=== PATIENT | male | born 1965 | race Caucasian/White ===

== ENCOUNTER 2020-09-25 17:41 | Emergency (ER) | payer OTHER, SELFPAY ==
[2020-09-25] VITALS (10 sets, daily range): BP systolic 107–134; BP diastolic 68–79; PULSE 56–66; RESP 13–18; TEMP 36.7–37.1; O2SAT 97–100
--- NOTE | ~2020-09-25 | XR_ITS ---
EXAMINATION: XR chest 1V EXAM DATE: 09/25/2020 18:23 INDICATION: Syncope. Weakness. TECHNIQUE: Portable AP frontal chest x-ray was obtained. There is no prior study for comparison. FINDINGS: The lungs are clear. There are no pleural effusions. The cardiomediastinal silhouette is within normal limits. There is no pneumothorax suspected. The bones and soft tissues are unremarkab le. IMPRESSION: No acute cardiopulmonary findings. Reviewed, dictated and finalized at location A.
--- NOTE | ~2020-09-25 | CT_ITS ---
EXAMINATION: CT brain wo con EXAM DATE: 09/25/2020 18:17 INDICATION: Dizziness. TECHNIQUE: Spiral CT of the head was performed without contrast. Axial, coronal and sagittal images were reviewed. The dose-length product (DLP) for this examination was 605.33 mGy-cm. The exposure w as tailored according to patient size, and iterative reconstruction (ASIR) was used as additional dos e reduction technique. There is no prior study for comparison. FINDINGS: There is no acute intraparenchymal hemorrhage. No evidence of intraparenchymal brain mass lesion. No evidence of acute infarction. There is no mass effect or midline shift. The ventricles are normal in size. There are no extra-axial collections. There are no acute calvarial fractures. T he orbits are unremarkable. Soft tissue is unremarkable. The visualized sinuses and mastoid air josephine ls are well aerated. IMPRESSION: 1. Normal head CT examination. Reviewed, dictated and finalized at location A.
--- NOTE | 2020-09-25 17:47 | ECG_ITS ---
Measurements Intervals [place] Rate: 62 P: 35 [place]: 195 QRS: 22 QRSD: 94 T: 34 QT: 374 QTc: 381 Interpretive Statements SINUS RHYTHM CONSIDER INFERIOR INFARCT, AGE INDETERMINATE ABNORMAL ECG Electronically Signed On 09-25-2020 18:44:09 CDT by Deondre Montoya D.O.
[2020-09-25 18:09] LABS: Basophils Absolute Auto 0.1 K/mm3 (0.0-0.1); Basophils Percent Auto 1.1 % (0.2-1.2); Eosinophils Absolute Auto 0.5 K/mm3 (0-0.3); Eosinophils Percent Auto 6.9 % (0-4.4); Hematocrit 42.1 % (42.0-52.0); Hemoglobin 14.5 g/dL (14.0-18.0); Immature Granulocyte Absolute 0.03 K/mm3 (0.00-0.031); Immature Granulocyte Percent A 0.5 % (0-0.5); Lymphocytes Percent Auto 27.8 % (18.3-44.2); Mean Corpuscular HGB Conc 34.4 g/dl (32-36); Mean Corpuscular Hemoglobin 31.2 pg (26-34); Mean Corpuscular Volume 90.5 fl (80-100); Mean Platelet Volume 10.5 fl (7.4-10.4); Monocytes Absolute Auto 0.7 K/mm3 (0.1-0.6); Monocytes Percent Auto 10.5 % (2.6-8.5); Neutrophils Absolute Auto 3.5 K/mm3 (1.3-6.7); Neutrophils Percent Auto 53.2 % (45.5-73.1); Platelet Count Result 220 k/mm3 (150-375); Red Blood Count 4.65 M/mm3 (4.6-6.20); Red Cell Distribution Width 12.3 % (11.5-14.5); White Blood Count 6.5 K/mm3 (4.5-10.0)
[2020-09-25 18:21] LABS: Alanine Aminotransferase 18 U/L (4-50); Albumin Level 4.2 g/dL (3.5-5.1); Alkaline Phosphatase 66 U/L (38-126); Anion Gap 6 mmol/L (8-16); Aspartate Amino Transferase 22 U/L (17-59); Bilirubin,Total 0.4 mg/dL (0.2-1.3); Blood Urea Nitrogen 25 mg/dL (9-20); Carbon Dioxide 30 mmol/L (22-30); Chloride 103 mmol/L (98-107); Creatine Kinase 72 U/L (55-170); Estimated CRCL calculation 74 ml/min; Estimated Glomerular Filt Rate > 60; Glucose 105 mg/dL (75-110); Potassium 3.9 mmol/L (3.4-5.0); Sodium 139 mmol/L (137-145)
--- NOTE | 2020-09-25 19:14 | ED.GENADULT ---
HPI - General Adult General Chief complaint: Weakness Stated complaint: WEAKNESS Time Seen by Provider: 09/25/20 17:49 Source: patient, EMS and RN notes reviewed Limitations: no limitations History of Present Illness HPI narrative: Patient is 55 years old white male presents with lightheadedness and dizziness at work today. 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 Patient denies any fever, chills, nausea, vomiting, diarrhea, constipation, urinary symptoms, headache, chest pain or shortness of breath. Patient was seen by different hospitals and urgent cares for chest pain over the last 2 months, started on atenolol 25 mg once a day. Patient is telling me since the beginning of that the normal until now been having intermittent dizziness, lightheadedness and not feeling well. Patient also started on meclizine 2 weeks ago for dizziness. Currently patient is asymptomatic. Patient lives with his girlfriend, denying any stress or anxiety. Patient does not smoke, or drink or uses marijuana. Patient denies any medical history. Does not take medication at home except atenolol. Patient is scheduled to see a family physician for the first time tomorrow. Related Data Home Medications Medication Instructions Recorded Confirmed atenolol 25 mg PO DAILY 09/25/20 ibuprofen 800 mg PO Q6H PRN 09/25/20 meclizine 25 mg PO TID PRN 09/25/20 Allergies Allergy/AdvReac Type Severity Reaction Status Date / Time No Known Allergies Allergy Verified 09/25/20 17:50 Review of Systems Review of Systems: Narrative: CONSTITUTIONAL: Denies fever, chills, or sweats. EYES: Denies visual changes, redness, or discharge. ENT: Denies rhinorrhea, congestion, sore throat, or otalgia. CARDIOVASCULAR: Denies chest pain, palpitations, or edema. RESPIRATORY: Denies cough or dyspnea. GASTROINTESTINAL: Denies abdominal pain, nausea, vomiting, or diarrhea. GENITOURINARY: Denies dysuria or hematuria. SKIN: Denies rash or itching. MUSCULOSKELETAL: Denies back pain, joint pain, or myalgia. NEUROLOGIC: Denies headache, numbness, or weakness. PSYCHIATRIC: Denies anxiety or depression. Exam Narrative: Exam Narrative: General appearance: Well-developed, well-nourished Skin: Normal color Head: Normocephalic, nontraumatic Eyes: Clear conjunctiva ENT: Oropharynx normal, ears normal, nose normal Neck: Supple, nontender Chest and respiratory: Airway patent, no respiratory distress, no accessory muscle use Heart: Regular rate/rhythm Abdomen: Soft, nontender, no organomegaly, quiet bowel sounds Vascular: Normal peripheral pulses, normal capillary refill. Musculoskeletal: Normal range of motion, nontender back Neurologic: Alert and oriented ?3, [employer] is normal as tested, no gross motor deficit Course Course Emergency Course: Resolved Vital Signs Vital signs: Vital Signs Temperature 36.7 C 09/25/20 17:40 Pulse Rate 60 09/25/20 17:40 Respiratory Rate 14 09/25/20 17:40 Blood Pressure 134/70 09/25/20 17:40 Pulse Oximetry 98 09/25/20 17:40 Temperature 37.1 C 09/25/20 19:51 Pulse Rate 65 09/25/20 19:51 Respiratory Rate 16 09/25/20 19:51 Blood Pressure 107/79 09/25/20 19:51 Pulse Oximetry 100 09/25/20 19:51 Medical Decision Making Vital Signs Vital Signs: Vital Signs Temperature 36.7 C 09/25/20 17:40 Pulse Rate 60 09/25/20 17:40 Respiratory Rate 14 09/25/20 17:40 Blood Pressure 134/70 09/25/20 17:40 Pulse Oximetry 98 09/25/20 17:40 Temperature 37.1 C 03
--- NOTE | 2020-09-25 19:47 | PC.NURSE ---
Pt presents to ED with complaints of generalized weakness. Pt states he blacked out at work today. Denies fall and loc. Pt denies sick contacts, NVD, fever, chills, chest pain, sob and emesis. Pt noted to be alert and oriented x4 and states it is difficulty to explain how he feels. Pt provided ice water per ok from EDMD to provide urine specimen. Pt resting on cart on his phone. Advised to press call button for assistance.
--- NOTE | 2020-09-25 19:53 | PC.NURSE ---
Pt denies all pain and discomfort at this time.
[2020-09-25 21:02] LABS: Add Urine Microscopic? NO; Appearance Urine Clear (Clear); Bilirubin Urine Negative (Negative); Blood Urine Negative (Negative); Color Urine Yellow (Yellow); Glucose Urine UA Negative (Negative); Ketones Urine Negative (Negative); Leukocyte Esterase Ur Negative LEU/UL (Negative); Nitrate Urine Negative (Negative); Protein Urine Negative (Negative); Specific Grav Ur 1.015 (1.001-1.035); Urobilinogen Urine Negative mg/dL (<2.0)
[2020-09-25 21:19] LABS: Amphetamine Screen Urine Negative (Negative); Barbiturate Screen Urine Negative (Negative); Benzodiazepines Screen Urine Negative (Negative); Cannabinoid Screen Urine Negative (Negative); Cocaine Screen Urine Negative (Negative); Methadone Screen Urine Negative (Negative); Opiate Screen Urine Negative (Negative); Phencyclidine Screen Urine Negative (Negative)
--- NOTE | 2020-09-25 21:21 | PC.NURSE ---
Pt provided Dr's note. All questions and concerns addressed. Pt advised to follow up with pcp and to continue all home meds and pt voices his understanding.
== END 2020-09-25 21:40 | disposition home or self-care (01) ==
PROVIDERS: Emergency Provider Emergency Medicine; PCP Family Medicine
DX: R42 Dizziness and giddiness (principal); R53.1 Weakness
CPT/HCPCS: 36415; 70450; 71045; 80053; 80307; 81003; 82550; 84443; 85025; 93005; 99284

== ENCOUNTER 2020-10-17 19:13 | Emergency (ER) | payer OTHER, SELFPAY ==
[2020-10-17] VITALS (7 sets, daily range): BP systolic 115–124; BP diastolic 75–87; PULSE 66–82; RESP 12–18; TEMP 36.7; O2SAT 91–96
--- NOTE | 2020-10-17 19:21 | ECG_ITS ---
Measurements Intervals [place] Rate: 75 P: 34 [place]: 183 QRS: 31 QRSD: 88 T: 31 QT: 364 QTc: 406 Interpretive Statements SINUS RHYTHM INFERIOR INFARCT, AGE INDETERMINATE ABNORMAL ECG Electronically Signed On 10-18-2020 0:13:51 CDT by Deondre Montoya D.O.
[2020-10-17 19:40] LABS: Basophils Absolute Auto 0.1 K/mm3 (0.0-0.1); Basophils Percent Auto 0.7 % (0.2-1.2); Eosinophils Absolute Auto 0.4 K/mm3 (0-0.3); Eosinophils Percent Auto 5.2 % (0-4.4); Hematocrit 42.3 % (42.0-52.0); Hemoglobin 14.8 g/dL (14.0-18.0); Immature Granulocyte Absolute 0.03 K/mm3 (0.00-0.031); Immature Granulocyte Percent A 0.4 % (0-0.5); Lymphocytes Absolute Auto 1.67 K/mm3 (0.9-3.2); Mean Corpuscular Hemoglobin 31.4 pg (26-34); Mean Corpuscular Volume 89.6 fl (80-100); Mean Platelet Volume 10.3 fl (7.4-10.4); Monocytes Absolute Auto 0.7 K/mm3 (0.1-0.6); Monocytes Percent Auto 9.6 % (2.6-8.5); Neutrophils Absolute Auto 4.2 K/mm3 (1.3-6.7); Neutrophils Percent Auto 60.1 % (45.5-73.1); Platelet Count Result 238 k/mm3 (150-375); Red Blood Count 4.72 M/mm3 (4.6-6.20); Red Cell Distribution Width 12.3 % (11.5-14.5)
[2020-10-17 19:51] LABS: Anion Gap 5 mmol/L (8-16); Blood Urea Nitrogen 28 mg/dL (9-20); Carbon Dioxide 29 mmol/L (22-30); Chloride 108 mmol/L (98-107); Estimated CRCL calculation 74 ml/min; Estimated Glomerular Filt Rate > 60; Glucose 91 mg/dL (75-110); Potassium 4.1 mmol/L (3.4-5.0); Sodium 142 mmol/L (137-145)
[2020-10-17] MEDS: SODIUM CHLORIDE 0.9% IV 1,000 ML 999 ML IV CONT (20:35)
--- NOTE | 2020-10-17 21:34 | ED.GENADULT ---
HPI - General Adult General Chief complaint: Syncope Stated complaint: near syncopal Time Seen by Provider: 10/17/20 19:42 History of Present Illness HPI narrative: Patient is a 55-year-old gentleman who presents to the emergency department planing of near syncope. The patient reports he was at work started feeling lightheaded, slumped over briefly lost consciousness. Patient states he was had some mild twitching of his extremities whenever he passed out and then returned to normal status. Patient denies headache denies chest pain denies shortness of breath denies abdominal pain. Patient reports that his primary care physician had adjusted his blood pressure medicines recently after he had another episode similar to this. Related Data Home Medications Medication Instructions Recorded Confirmed atenolol 25 mg PO DAILY 09/25/20 ibuprofen 800 mg PO Q6H PRN 09/25/20 meclizine 25 mg PO TID PRN 09/25/20 Allergies Allergy/AdvReac Type Severity Reaction Status Date / Time No Known Allergies Allergy Verified 09/25/20 17:50 Review of Systems Review of Systems: Narrative: A 10 system review of systems was completed on the patient and is negative except for what is stated in the HPI. Nursing and ancillary documentation was reviewed. PMFSH Comments Patient has past medical history significant for hypertension. Social history the patient works for [employer] and denies illicit drug use Exam Narrative: Exam Narrative: GENERAL: Well-appearing, well-nourished, and in no acute distress. HEAD: Normocephalic, atraumatic. EYES: PERRLA and EOMI. ENT: Nares clear, no rhinorrhea or epistaxis. Mucous membranes moist. NECK: Supple. CHEST: Clear to auscultation. No respiratory distress. HEART: Regular rate and rhythm. No murmur heard. Normal peripheral pulses. ABDOMEN: Soft, nontender, nondistended, normal active bowel sounds. EXTREMITIES: Normal range of motion. No edema. SKIN: Warm, dry, no rash. NEURO: No focal deficits. Alert and oriented x3. PSYCH: Normal mood and affect. Course Vital Signs Vital signs: Vital Signs Temperature 36.7 C 10/17/20 19:14 Pulse Rate 75 10/17/20 19:14 Respiratory Rate 16 10/17/20 19:14 Blood Pressure 124/78 10/17/20 19:14 Pulse Oximetry 91 10/17/20 19:14 Temperature 36.7 C 04/15/21 19:14 Pulse Rate 75 10/17/20 19:14 Respiratory Rate 16 10/17/20 19:14 Blood Pressure 124/78 10/17/20 19:14 Pulse Oximetry 91 10/17/20 19:14 Medical Decision Making Vital Signs Vital Signs: Vital Signs Temperature 36.7 C 10/17/20 19:14 Pulse Rate 75 10/17/20 19:14 Respiratory Rate 16 10/17/20 19:14 Blood Pressure 124/78 10/17/20 19:14 Pulse Oximetry 91 10/17/20 19:14 Temperature 36.7 C 10/17/20 19:14 Pulse Rate 75 10/17/20 19:14 Respiratory Rate 16 10/17/20 19:14 Blood Pressure 124/78 10/17/20 19:14 Pulse Oximetry 91 10/17/20 19:14 Lab Data Result diagrams: 10/17/20 19:34 10/17/20 19:34 Labs: Lab Results 10/17/20 10/17/20 Range/Units 19:34 19:34 WBC 7.0 (4.5-10.0) K/mm3 RBC 4.72 (4.6-6.20) M/mm3 Hgb 14.8 (14.0-18.0) g/dL Hct 42.3 (42.0-52.0) % MCV 89.6 (80-100) fl MCH 31.4 (26-34) pg MCHC 35.0 (32-36) g/dl RDW 12.3 (11.5-14.5) % Plt Count 238 (150-375) k/mm3 MPV 10.3 (7.4-10.4) fl Immature Gran % (Auto) 0.4 (0-0.5) % Neut % (Auto) 60.1 (45.5-73.1) % Lymph % (Auto) 24.0 (18.3-44.2) % [place] % (Auto) 9.6 H (2.6-8.5) % Eos % (Auto) 5.2 H (0-4.4) % Baso % (Auto) 0.7 (0.2-1.2) % Lymph # (Auto) 1.67 (0.9-3.2) K/mm3 [place] # (Auto) 0.7 H (0.1-0.6) K/mm3 Eos # (Auto) 0.4 H (0-0.3) K/mm3 Baso # (Auto) 0.1 (0.0-0.1) K/mm3 Abs Immat Gran (auto) 0.03 (0.00-0.031) K/mm3 Absolute Neuts (auto) 4.2 (1.3-6.7) K/mm3 Absolute Nucleated RBC 0.0 (0.0-0.012) K/mm3 Nucleated RBC % 0.0 (0.0-0.2) % Sodium 142 (137-
== END 2020-10-17 21:45 | disposition home or self-care (01) ==
PROVIDERS: Emergency Medicine; Emergency Provider Emergency Medicine; PCP Family Medicine
DX: R55 Syncope and collapse (principal); I10 Essential (primary) hypertension; R94.31 Abnormal electrocardiogram [ECG] [EKG]
CPT/HCPCS: 36415; 80048; 85025; 93005; 96360; 99284; J7030

== ENCOUNTER 2020-12-25 16:57 | Inpatient (IN) | payer OTHER, SELFPAY ==
[2020-12-25] VITALS (7 sets, daily range): BP systolic 115–135; BP diastolic 63–81; PULSE 58–72; RESP 15–18; TEMP 36.5–37.1; O2SAT 95–99; BMI 25.0
--- NOTE | ~2020-12-25 | CT_ITS ---
EXAMINATION: CT brain wo con DATE: 12/25/2020 18:19 INDICATION: Syncope. TECHNIQUE: Computed tomography (CT) of the head was performed without intravenous contrast. The mA wa s adjusted according to patient size. Iterative reconstruction technique was employed. The dose-lengt h product was 605.33 mGy-cm. COMPARISON: Head CT 09/25/2020 FINDINGS: There is no intracranial hemorrhage, acute infarction, or abnormal intracranial mass lesion . The ventricles are normal in size. The orbits are normal. There is mucosal thickening in right sphe noid sinus with thickening and sclerosis of the sinus tam, consistent with chronic sinusitis. The m astoid air cells are normal. IMPRESSION: 1. Normal brain. 2. Chronic sinusitis. Reviewed, dictated and finalized at location A.
--- NOTE | ~2020-12-25 | XR_ITS ---
EXAMINATION: XR chest 1V portable DATE: 12/27/2020 07:12 INDICATION: Apnea TECHNIQUE: frontal view of the chest was obtained. COMPARISON: Chest radiograph dated 09/25/2020 FINDINGS: The lungs remain clear with no focal airspace opacities, pulmonary edema, pleural effusion or pneumot horax. The cardiomediastinal silhouette is normal. IMPRESSION: 1. No acute cardiopulmonary disease. Reviewed, dictated and finalized at location A.
--- NOTE | ~2020-12-25 | US_ITS ---
EXAMINATION: US carotid duplex BI DATE: 12/26/2020 10:55 INDICATION: Syncope TECHNIQUE: Grayscale, color Doppler, and pulsed Doppler images of the cervical carotid arteries were obtained. The degree of vessel stenosis is placed in one of the following categories: normal, <50%, 5 0-69%, >=70% but less than near-occlusion, near-occlusion, or total occlusion. Note that percent sten osis relative to normal distal artery lumen diameter is indirectly measured from velocity measurement s as described by Cameron, et al. Radiology 2003; 229:340-346. COMPARISON: None. FINDINGS: RIGHT: The right common carotid artery (CCA) peak systolic velocity (PSV) is 71 cm/s. The right internal car otid artery (ICA) PSV is 49 cm/s. The right ICA end-diastolic velocity (EDV) is 18 cm/s. The right IC A/CCA PSV ratio is 1.1. Grayscale and color Doppler images yield an estimate of <50% diameter reducti on from plaque in the ICA. The external carotid artery (ECA) PSV is 142 cm/s. There is antegrade flow in the right vertebral artery. LEFT: The left CCA PSV is 106 cm/s. The left ICA PSV is 97 cm/s. The left ICA EDV is 19 cm/s. The left ICA/ CCA PSV ratio is 0.9. Grayscale and color Doppler images yield an estimate of <50% diameter reduction from plaque in the ICA. The ECA PSV is 85 cm/s. There is antegrade flow in the left vertebral artery . IMPRESSION: 1. <50% stenosis from minimal plaque in the right internal carotid artery. 2. <50% stenosis from minimal plaque in the left internal carotid artery. Reviewed, dictated and finalized at location A.
--- NOTE | ~2020-12-25 | MR_ITS ---
EXAMINATION: MR brain/brain stem wo con DATE: 12/26/2020 14:42 CDT INDICATION: Syncope TECHNIQUE: Magnetic resonance imaging (MRI) of the brain and brainstem was performed without intraven ous contrast. Sequences included sagittal and axial T1-weighted SE, axial diffusion-weighted FS SE, a xial T2*-weighted GRE, axial T2-weighted FLAIR Propeller, and axial T2-weighted Propeller. Apparent d iffusion coefficient (ADC) maps were created. COMPARISON: CT dated 12/25/2020 FINDINGS: The brain volume and ventricular system are within normal limits. The brain parenchymal si gnal intensity pattern and moore/white matter is normal and there is no evidence of hemorrhage, space occupying masses or infarctions. The flow signal voids of the major arterial structures about the [place] and within the francesca r dural venous sinuses appear grossly unremarkable and patent. The seventh and eighth cranial nerve complexes are normal. The mid sagittal image demonstrates a normal craniovertebral junction and nino us callosum. There is mucosal thickening of the right maxillary sinus. Orbits are symmetric without d isconjugate gaze. IMPRESSION: 1: No acute intracranial abnormality. 2: Right maxillary sinusitis. Reviewed, dictated and finalized at location B.
--- NOTE | 2020-12-25 16:58 | ECG_ITS ---
Measurements Intervals [place] Rate: 66 P: 53 [place]: 175 QRS: 54 QRSD: 96 T: 49 QT: 384 QTc: 404 Interpretive Statements SINUS RHYTHM NORMAL ECG Electronically Signed On 12-25-2020 21:38:37 CDT by Deondre Montoya D.O.
[2020-12-25 17:12] LABS: Basophils Percent Auto 0.7 % (0.2-1.2); Eosinophils Absolute Auto 0.1 K/mm3 (0-0.3); Eosinophils Percent Auto 1.5 % (0-4.4); Hematocrit 42.9 % (42.0-52.0); Hemoglobin 14.5 g/dL (14.0-18.0); Immature Granulocyte Absolute 0.02 K/mm3 (0.00-0.031); Immature Granulocyte Percent A 0.4 % (0-0.5); Lymphocytes Absolute Auto 1.12 K/mm3 (0.9-3.2); Lymphocytes Percent Auto 20.4 % (18.3-44.2); Mean Corpuscular HGB Conc 33.8 g/dl (32-36); Mean Corpuscular Hemoglobin 30.5 pg (26-34); Mean Corpuscular Volume 90.1 fl (80-100); Mean Platelet Volume 10.6 fl (7.4-10.4); Monocytes Absolute Auto 0.4 K/mm3 (0.1-0.6); Monocytes Percent Auto 7.5 % (2.6-8.5); Neutrophils Absolute Auto 3.8 K/mm3 (1.3-6.7); Neutrophils Percent Auto 69.5 % (45.5-73.1); Platelet Count Result 215 k/mm3 (150-375); Red Blood Count 4.76 M/mm3 (4.6-6.20); Red Cell Distribution Width 11.9 % (11.5-14.5); White Blood Count 5.5 K/mm3 (4.5-10.0)
[2020-12-25 17:21] LABS: Anion Gap 10 mmol/L (8-16); Blood Urea Nitrogen 25 mg/dL (9-20); Calcium 9.7 mg/dL (8.4-10.2); Carbon Dioxide 27 mmol/L (22-30); Chloride 107 mmol/L (98-107); Estimated CRCL calculation 74 ml/min; Estimated Glomerular Filt Rate > 60; Glucose 111 mg/dL (75-110); Potassium 3.9 mmol/L (3.4-5.0); Sodium 144 mmol/L (137-145)
[2020-12-25 18:39] LABS: Ethanol < 10 mg/dL (<10)
--- NOTE | 2020-12-25 18:43 | ED.SYNCOPE ---
HPI - Syncope General Chief Complaint: Syncope Stated Complaint: seizures Time Seen by Provider: 12/25/20 17:52 Source: patient Mode of arrival: EMS Limitations: no limitations History of Present Illness HPI narrative: 55-year-old with a history of hypertension, hyperlipidemia, anxiety here with complaints of multiple syncopal episodes for past few days. Patient states that he was trying to clock and passed out at the clock. He denies any chest pain or palpitation prior to the evening. Patient states that this is her third or fourth time since last 3 days. He complains of headache after the fall. However his coworkers noticed him to having some twitching. Patient denies previous history of seizure disorder. He is not on any medication. He states that he takes atorvastatin, meclizine and fluoxetine. MD complaint: almost passed out Onset (ago): hour(s) (1) -: minutes(s) Prodromal symptoms: none Injuries sustained associated with event: none Treatments prior to arrival: none Related Data Home Medications Medication Instructions Recorded Confirmed atenolol 25 mg PO DAILY 09/25/20 ibuprofen 800 mg PO Q6H PRN 09/25/20 meclizine 25 mg PO TID PRN 09/25/20 fluoxetine mg 12/25/20 12/25/20 Allergies Allergy/AdvReac Type Severity Reaction Status Date / Time No Known Allergies Allergy Verified 12/25/20 17:41 Review of Systems Review of Systems: All systems reviewed & are unremarkable except as noted in HPI and below Constitutional: Constitutional: Reports no additional constitutional complaints Eyes: Eyes: Reports no additional eye complaints ENT: Reports system reviewed and no additional complaints, except as documented Cardiovascular: Cardiovascular: Reports no additional cardiovascular complaints Respiratory: Respiratory: Reports no additional respiratory complaints Gastrointestinal: Gastrointestinal: Reports no additional gastrointestinal complaints Musculoskeletal: Musculoskeletal: Reports no additional musculoskeletal complaints Integumentary/Breasts: Skin/Breast: Reports system reviewed and no additional complaints, except as docu Neurologic: Reports system reviewed and no additional complaints, except as documented and Reports syncope Exam Narrative: Exam Narrative: GENERAL: Well-appearing, well-nourished, and in no acute distress. HEAD: Normocephalic, atraumatic. EYES: PERRLA and EOMI. ENT: Nares clear, no rhinorrhea or epistaxis. Mucous membranes moist. NECK: Supple. CHEST: Clear to auscultation. No respiratory distress. HEART: Regular rate and rhythm. No murmur heard. Normal peripheral pulses. ABDOMEN: Soft, nontender, nondistended, normal active bowel sounds. EXTREMITIES: Normal range of motion. No edema. SKIN: Warm, dry, no rash. NEURO: No focal deficits. Alert and oriented x3. PSYCH: Normal mood and affect. Course Course Emergency Course: Patient presently complaining of headache otherwise he is neurologically intact. I discussed labs, EKG and CT findings with the patient. We will admit him to the hospital for observation for multiple syncopal episodes for the past 3 days. Patient is agreeable. Vital Signs Vital signs: Vital Signs Temperature 37.1 C 12/25/20 16:58 Pulse Rate 62 12/25/20 16:58 Respiratory Rate 18 12/25/20 16:58 Blood Pressure 117/70 12/25/20 16:58 Pulse Oximetry 96 12/25/20 16:58 Temperature 36.6 C 12/25/20 17:36 Pulse Rate 70 12/25/20 17:36 Respiratory Rate 15 12/25/20 17:36 Blood Pressure 132/80 12/25/20 17:36 Pulse Oximetry 97 12/25/20 17:36 MDM - Syncope Differential Diagnosis Differential diagnosis: Likely syncope due to orthostatic hypotension, vasovagal syncope and pulmonary embolism Medical Records Attestation: I reviewed the patient's medical records. Lab Data Result diagrams: 12/25/20 17:07 12/25/20 17:07 Labs: Lab Results 12/25/20 12/25/20 12/25/20 Range/Units 17:07 17:07 17:
[2020-12-25 18:49] LABS: Troponin I < 0.012 ng/mL (0.000-0.034)
--- NOTE | 2020-12-25 21:30 | ADMGEN ---
This patient, Venu Garcia, was admitted to Medical Room 251-. Patient/family oriented to hospital policies and general routines including ID bracelet, bed and alarms, visiting hours, pain management, procedures, bathroom and other care routines, personal items, smoking policy, room service/diet, and visiting hours. Information on how to activate the Rapid Response Team has been discussed. Patient/Family are encouraged to report perceived risks to care and to ask questions if they do not understand what they are told or what they should do.
--- NOTE | 2020-12-25 22:08 | PM.IMHP ---
H&P: HPI History of Present Illness Date/Time: 12/25/20 22:08 Chief Complaint: Syncope Narrative: This is a 55-year-old male with past medical history significant for dyslipidemia, depression. 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 he has been having syncopal episodes for the last few months started back in July he follow-up in the outpatient setting for Holter monitoring. He denies any dizziness any lightheadedness no prodromes no post ictal state patient could be standing or sitting or laying in bed no relaxation of the sphincters no muscle twitching or tonic clonic movement no tremors no migraine headaches no vision changes no nausea no vomiting no diarrhea no abdominal pain no palpitations no chest pain no PND no orthopnea no claudication he has been eating and drinking his usual he denies use of any drugs or alcohol. Preliminary workup has been essentially nonrevealing patient will be placed in observation status. Review of Systems Review of Systems: Narrative: Syncope and collapse Constitutional: Constitutional: Denies chills, Denies fever(s), Denies lethargy, Denies malaise and Denies weakness Eyes: Eyes: Denies change in vision ENT: Denies dysphagia, Denies vertigo, Denies dizziness, Denies nasal congestion, Denies nasal discharge, Denies nasal obstruction, Denies disequilibrium and Denies tinnitus Cardiovascular: Cardiovascular: Denies irregular heart rhythm, Denies radiating jaw, neck or arm pain and Denies palpitations Respiratory: Respiratory: Denies cough, Denies dyspnea, Denies dyspnea on exertion, Reports snoring and Denies wheezing Gastrointestinal: Gastrointestinal: Denies abdominal pain, Denies diarrhea, Denies nausea and Denies vomiting Musculoskeletal: Musculoskeletal: Denies back pain, Denies arthralgias, Denies joint swelling, Denies muscle cramps and Denies muscle weakness Integumentary/Breasts: Skin/Breast: Denies rash Neurologic: Denies vertigo, Denies dizziness, Reports syncope, Denies focal weakness, Denies loss of vision, Denies Sensory deficit (Neuro), Denies tremor(s) and Denies weakness Psychiatric: Psychiatric: Reports no additional psychiatric complaints Endocrine: Endocrine: Reports no additional endocrine complaints Hematologic/Lymphatic: Hematologic/Lymphatic: Reports no additional hematologic/lymphatic complaints Allergic/Immunologic: Allergic/Immunologic: Reports no additional allergic/immunologic complaints [facility] Family History Family History (Updated 12/25/20 @ 21:14 by Moni Funes RN) Father Heart disease Social History Social History Alcohol intake: never Spiritual care concerns: No Meds Home Medications and Allergies Home Medications Medication Instructions Recorded Confirmed Type ibuprofen 600 mg PO Q6H PRN 09/25/20 12/25/20 History meclizine 25 mg PO TID PRN 09/25/20 12/25/20 History atorvastatin 40 mg PO DAILY 12/25/20 12/25/20 History fluoxetine 20 mg PO DAILY 12/25/20 12/25/20 History Allergies Allergy/AdvReac Type Severity Reaction Status Date / Time atenolol AdvReac Hypotension Verified 12/25/20 21:12 Vital Signs Vital Signs - 24 hr 12/25/20 16:58 12/25/20 17:36 12/25/20 18:30 Temperature 98.7 F 97.8 F Pulse Rate 62 70 63 Respiratory Rate 18 15 15 Blood Pressure 117/70 132/80 115/63 Pulse Oximetry 96 97 98 12/25/20 19:23 12/25/20 20:19 12/25/20 21:12 Temperature 97.7 F Pulse Rate 64 64 58 L Respiratory Rate 16 16 18 Blood Pressure 117/74 119/77 135/81 Pulse Oximetry 98 98 99 Exam Narrative: Exam Narrative: Laying in re Const: General: cooperative, comfortable, no acute distress, well developed, alert, awake, well groomed and other (Well-appearing) Nutritional Anjum
[2020-12-26] VITALS (13 sets, daily range): BP systolic 108–127; BP diastolic 59–83; PULSE 47–72; RESP 18–21; TEMP 36.2–36.6; O2SAT 95–99; BMI 25.0
--- NOTE | 2020-12-26 | ECHO_ITS ---
Patient Info Name: Venu Garcia Age: 55 years : 1965 Gender: Male Ht: 66 in Wt: 154 lbs BSA: 1.81 m2 HR: 72 bpm BP: 108 / 60 mmHg Heart Rhythm: Sinus Rhythm Technical Quality: Good Exam Date: 12/26/2020 11:06 AM Exam Location: [facility] Patient Status: Outpatient Admit Date: 12/25/2020 Staff Ordering Physician: Primo Rick MD Medical Library Assistant: Rubin Aleman, KALPESH, RT Attending Provider: Diana Ching MD Referring Physician: Merline KING; Exam Type: CA echo doppler color flow Study Info Indications R55 - Syncope and collapse Complete two-dimensional, color flow and Doppler transthoracic echocardiogram is performed. Strain analysis performed. Summary 1. Complete two-dimensional, color flow and Doppler transthoracic echocardiogram is performed. 2. Strain analysis performed. 3. Left ventricular chamber dimension is normal. 4. Left ventricular systolic function is normal, estimated at 55-60%. 5. There is mildly increased left ventricular wall thickness. 6. The left ventricular diastolic function is normal. 7. Global longitudinal strain is normal at -18 %. 8. There is mild mitral valve regurgitation. Left Ventricle Left ventricular chamber dimension is normal. Left ventricular systolic function is normal, estimated at 55-60%. There is mildly increased left ventricular wall thickness. The left ventricular diastolic function is normal. Global longitudinal strain is normal at -18 %. Right Ventricle Right ventricular chamber dimension is normal. Right ventricular systolic function is normal. Left Atria Left atrial chamber dimension is normal. Right Atria Right atrial chamber dimension is normal. Atrial Septum Intact interatrial septum visualized by color flow imaging. Aortic Valve The aortic valve is trileaflet. There is mild aortic valve sclerosis. There is no aortic valve stenosis. There is trace aortic valve regurgitation. Pulmonic Valve The pulmonic valve is normal. There is no pulmonic valve stenosis. There is trace pulmonic regurgitation. Mitral Valve The mitral valve has normal leaflets. There is no mitral valve stenosis. There is mild mitral valve regurgitation. Tricuspid Valve The tricuspid valve leaflets are normal. There is no significant tricuspid valve stenosis. There is trace tricuspid valve regurgitation. Pericardium/Pleural The pericardium appears normal. There is no pericardial effusion. Inferior Vena Cava Normal inferior vena cava with >50% collapse upon inspiration consistent with normal right atrial pressure, 5 mmHg. Aorta The aortic root size at the sinus of Valsalva is normal. The prox ascending aorta size is normal. Left Ventricular Outflow Tract Name Value Normal LVOT 2D LVOT Diameter 1.9 cm LVOT Doppler LVOT Peak Gradient 3 mmHg LVOT Mean Gradient 1 mmHg LVOT VTI 17 cm LVOT VTI/AV VTI Ratio 0.8 LVOT Stroke Volume 46 ml LVOT CO
--- NOTE | 2020-12-26 06:00 | ECG_ITS ---
Measurements Intervals Dorena Rate: 58 P: 57 NJ: 188 QRS: 30 QRSD: 88 T: 65 QT: 395 QTc: 390 Interpretive Statements SINUS BRADYCARDIA MINIMAL Q WAVES- INFERIOR LEADS BORDERLINE ECG Electronically Signed On 12-26-2020 10:54:31 CDT by Deondre Montoya D.O.
[2020-12-26] MEDS: FLUoxetine HCL 20 MG CAPSULE PO (09:22)
[2020-12-26] MEDS: ASPIRIN 81 MG CHEWABLE TABLET PO (09:22)
[2020-12-26] MEDS: ATORVASTATIN 40 MG TABLET PO (09:22)
--- NOTE | 2020-12-26 15:15 | PM.IMPN ---
Progress Note: A&P Assessment and Plan (1) Syncope: Qualifiers: Syncope type: unspecified Qualified Code(s): R55 - Syncope and collapse Code(s): R55 - Syncope and collapse Status: Acute Assessment and Plan: Suspect narcolepsy Apnea link screening test tonight MRI of the brain shows normal brain Echocardiogram: ef 55-60% Carotid Doppler: <50% Bilaterally Patient states that he was on Holter monitor in the outpatient setting Other etiologies not completely ruled out Consult neurology thank you PT/OT (2) Dizziness: Code(s): R42 - Dizziness and giddiness Status: Acute Assessment and Plan: Patient stated that he does get dizzy when adjusting positions Meclizine 25mg TID PO scheduled here PRN at home PT/OT evkhanh (3) Dyslipidemia: Code(s): E78.5 - Hyperlipidemia, unspecified Status: Acute Assessment and Plan: Continue atorvastatin 40mg PO daily (4) Depression: Code(s): F32.9 - Major depressive disorder, single episode, unspecified Status: Acute Assessment and Plan: Continue fluoxetine 20mg PO daily Subjective Date/time seen: 12/26/20 14:50 Interval history: This is a 55-year-old male with past medical history significant for dyslipidemia, depression. 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 patient did state that he has been having these episodes for while. And sometimes he does loses hearing and at times he does not. I asked him if he blacked out he has had no however when I asked him if he remembers what happens he stated that he is not sure. He also stated that he does not know what happened to him yesterday. He did say that he was still having some issues with dizziness when he gets up. I asked him if he was still taking his meclizine he said he would think that the nurse have given it to him. I did explain to the patient that this is a p.r.n. medication that he needs to ask for it. However I have changed over to scheduled to ensure that he is getting at. Patient at this time denies chest pain, shortness of breath, constipation, nausea, vomiting, diarrhea, palpitations, sweats, chills, visual difficulties, urinary dysfunction, or seizures. In the evening time, patient was found in the bathroom staring off with no response. Patient was also found to have several brief periods of apnea. Patient was transferred to the IMU for bipap and respiratory management. Review of Systems Review of Systems: All systems reviewed & are unremarkable except as noted in HPI and below Exam Const: General: cooperative, comfortable, no acute distress, well developed, alert, awake, well groomed and other (Well-appearing) Nutritional Appearance: average body habitus Orientation/consciousness: patient oriented x3 HENMT: Head: normal to inspection, normocephalic and atraumatic Ears: hearing grossly normal bilaterally General nose exam: Normal external nose present Face and sinus: normal facial exam Eyes: General: appearance normal, both eyes and all related structures Alignment and Position: alignment normal Sclera: sclerae normal Pupils: Equal, round and reactive pupils present EOM: EOMs intact bilaterally Neck: Neck: full ROM, no lymphadenopathy and no JVD Thyroid: thyroid normal Lymphatic: no lymphadenopathy noted Resp: Effort & Inspection: normal respiratory effort and able to speak in complete sentences Auscultation: clear to auscultation bilaterally, no crackles, no rales and no rhonchi Cardio: Jugular venous distension: no JVD Rate: regular rate Rhythm: regular rhythm Heart sounds: S1 normal heart sound present and S2 normal heart sound present GI: Inspection: normal to inspection : General: Yes d
[2020-12-26] MEDS: MECLIZINE HCL 25 MG TABLET PO (16:34)
[2020-12-26] MEDS: ACETAMINOPHEN 325 MG TABLET 650 MG PO (18:58)
--- NOTE | 2020-12-26 19:00 | PC.NURSE ---
At 1745 Patient was on the toilet, NAVAL MARINE ENGINEER found the patient to be staring out and would not answer questions and patient began shaking mainly his left side of his body, NAVAL MARINE ENGINEER called for help and the patient was assisted back into the bed. When returned to bed patient started talking again, patient was able to answer questions. Vitals were stable. I went to the nurses station to notify the MD covering the patient as I was talking to Dr. Ching I was notified that the patient was staring out again and shaking. MD went to the patients room, orders were obtained and entered into the computer. Patient was then noted to have multiple 20 second apneic episodes, heart rate and pulse oximetry were still stable, patient was able to be woken up by shaking and would talk. Respiratory was called and patient was placed on a CPAP. MD ordered for patient to be transferred to IMU.
--- NOTE | 2020-12-26 19:29 | PC.NURSE ---
This patient, Venu Garcia, was received from [ [address] [place] [address]] on 12/26/20 at 1915. Patient/family oriented to unit policies and routines
[2020-12-26 20:40] LABS: Glucose Point of Care 132 mg/dl (65-105)
[2020-12-27] VITALS (19 sets, daily range): BP systolic 103–132; BP diastolic 6–80; PULSE 53–76; RESP 12–20; TEMP 36.3–36.7; O2SAT 97–98
[2020-12-27 05:26] LABS: Basophils Absolute Auto 0.1 K/mm3 (0.0-0.1); Basophils Percent Auto 0.8 % (0.2-1.2); Eosinophils Absolute Auto 0.3 K/mm3 (0-0.3); Eosinophils Percent Auto 5.3 % (0-4.4); Hematocrit 40.8 % (42.0-52.0); Hemoglobin 13.8 g/dL (14.0-18.0); Immature Granulocyte Absolute 0.02 K/mm3 (0.00-0.031); Immature Granulocyte Percent A 0.3 % (0-0.5); Lymphocytes Absolute Auto 2.54 K/mm3 (0.9-3.2); Lymphocytes Percent Auto 39.3 % (18.3-44.2); Mean Corpuscular HGB Conc 33.8 g/dl (32-36); Mean Corpuscular Hemoglobin 30.4 pg (26-34); Mean Corpuscular Volume 89.9 fl (80-100); Monocytes Absolute Auto 0.7 K/mm3 (0.1-0.6); Neutrophils Absolute Auto 2.9 K/mm3 (1.3-6.7); Neutrophils Percent Auto 44.3 % (45.5-73.1); Platelet Count Result 207 k/mm3 (150-375); Red Blood Count 4.54 M/mm3 (4.6-6.20); White Blood Count 6.5 K/mm3 (4.5-10.0)
[2020-12-27 05:39] LABS: Alanine Aminotransferase 22 U/L (4-50); Alkaline Phosphatase 74 U/L (38-126); Anion Gap 8 mmol/L (8-16); Aspartate Amino Transferase 19 U/L (17-59); Bilirubin,Total 0.4 mg/dL (0.2-1.3); Blood Urea Nitrogen 17 mg/dL (9-20); Calcium 8.8 mg/dL (8.4-10.2); Carbon Dioxide 25 mmol/L (22-30); Chloride 108 mmol/L (98-107); Estimated CRCL calculation 67 ml/min; Estimated Glomerular Filt Rate > 60; Glucose 104 mg/dL (75-110); Potassium 3.5 mmol/L (3.4-5.0); Sodium 141 mmol/L (137-145)
[2020-12-27 09:12] LABS: Troponin I < 0.012 ng/mL (0.000-0.034)
[2020-12-27] MEDS: ASPIRIN 81 MG CHEWABLE TABLET PO (09:15)
[2020-12-27] MEDS: ATORVASTATIN 40 MG TABLET PO (09:15)
[2020-12-27] MEDS: MECLIZINE HCL 25 MG TABLET PO ×3 (09:15→16:54)
[2020-12-27] MEDS: FLUoxetine HCL 20 MG CAPSULE PO (09:15)
--- NOTE | 2020-12-27 13:33 | WPDNEURCNPN ---
Assessment and Plan Additional Plan considering the previous evaluation but again other etiologies need to be ruled out MRI of the brain is being carried out in addition to echocardiogram and Doppler study of the carotid also will obtain the EEG to rule out the possibility of seizure question has been raised regarding the possible narcolepsy and EEG will benefit for that as well Consult date: 12/27/20 Time Seen: 13:00 HPI: Venu Garcia is a 55 year old male admitted to the hospital for the complaints of syncopal episode in addition to the ongoing history of 1. Dyslipidemia 2. Depression. For the information available he was locking in at the beginning of the shift at his job at the [employer] for [employer] where he works from 4:00 p.m. to 3:00 a.m. and had a syncopal episode but he also mentions that he has been experiencing syncopal episode for the last several months is starting back in July as an outpatient he has had the Holter monitoring he gave no history of seizure-like phenomena no dizziness lightheadedness and seizure like activity his workup in the past has been negative . past history is consistent with the no alcohol intake Review of Systems Review of Systems: All systems reviewed & are unremarkable except as noted in HPI and below PMFSH Past Medical History Medical History Dizziness Family History Family History Father Heart disease Social History Social History Alcohol intake: never Spiritual care concerns: No Meds Home Medications and Allergies Home Medications Medication Instructions Recorded Confirmed Type ibuprofen 600 mg PO Q6H PRN 09/25/20 12/25/20 History meclizine 25 mg PO TID PRN 09/25/20 12/25/20 History atorvastatin 40 mg PO DAILY 12/25/20 12/25/20 History fluoxetine 20 mg PO DAILY 12/25/20 12/25/20 History Allergies Allergy/AdvReac Type Severity Reaction Status Date / Time atenolol AdvReac Hypotension Verified 12/25/20 21:12 Vital Signs Vital Signs - 24 hr 12/26/20 14:00 12/26/20 16:00 12/26/20 18:10 Temperature 36.2 C L Pulse Rate 58 L 63 Respiratory Rate 18 Blood Pressure 127/83 Pulse Oximetry 96 98 12/26/20 19:37 12/26/20 20:00 12/26/20 22:00 Temperature 36.4 C Pulse Rate 59 L 62 54 L Respiratory Rate 20 Blood Pressure 112/59 L Pulse Oximetry 98 12/26/20 22:20 12/27/20 00:00 12/27/20 02:00 Temperature 36.4 C L Pulse Rate 69 76 61 Respiratory Rate 21 H 18 Blood Pressure 116/62 Pulse Oximetry 98 97 12/27/20 03:34 12/27/20 03:39 12/27/20 04:00 Temperature 36.4 C Pulse Rate 60 57 L 53 L Respiratory Rate 18 16 Blood Pressure 103/57 L Pulse Oximetry 98 98 12/27/20 06:00 12/27/20 07:58 12/27/20 08:00 Temperature 36.6 C Pulse Rate 69 67 63 Respiratory Rate 12 Blood Pressure 130/70 Pulse Oximetry 97 12/27/20 12:00 Temperature 36.6 C Pulse Rate 60 Respiratory Rate 12 Blood Pressure 126/67 Pulse Oximetry 98 Exam Narrative: Exam Narrative: examination revealed him to be awake alert cooperative in no obvious acute distress laying in the bed with oxygen head normocephalic with no cranial bruit ear nose throat examination normal neck is supple with no cervical bruit no thyromegaly no lymphadenopathy heart regular with no murmur lungs clear with no rhonchi or crepitation abdomen is soft with no organomegaly neurological he is awake alert oriented x3 his speech nor dysphasic no dysarthric no dysphonic pupils round regular feels the vision full extraocular movements full face symmetrical tongue midline motor examination revealed him to have normal strength and tone with no drift reflexes symmetrical and 1 to2+ plantar definitely downgoing there is no evidence of sensory or cerebellar deficit Results Labs CBC & Chem 7: 12/27/20 04:32
--- NOTE | 2020-12-27 13:49 | WPDNEUROLOGY ---
Neurology EEG Report General Information Date of Study: 12/27/20 TEST eeg DIAGNOSIS Possible seizures CONDITION OF RECORDING awake drowsy and sleep EEG NUMBER [id number] CLINICAL HISTORY patient reported he has been experiencing episodes of dizziness and blackouts for the last couple of months and seems to be getting worse and more frequent EEG DESCRIPTION basic resting occipital frequency consists of large amount of well-organized medium voltage 8 to 10 hertz per 2nd alpha admixed with low-voltage 15 to 21 hertz per 2nd beta activity. Bilateral sleep activity seen with normal and symmetrical spindles. Multiple movement artifacts are noted throughout the tracing particularly during wakefulness and EKG artifact during sleep. Non paroxysmal nonfocal nonlateralizing. Hyperventilation not done photic stimulation not done IMPRESSION no significant abnormalities noted in this tracing if the diagnosis of partial complex seizure is strongly suspected and person can have repeat EEG sleep deprived at a later date
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
--- NOTE | 2020-12-27 15:46 | P.PNIM_ITS ---
Progress Note: A&P Assessment and Plan (1) Seizures: Code(s): R56.9 - Unspecified convulsions Status: Acute Assessment and Plan: * Patient having a syncopal episode with left arm shaking * EEG did not rule out seizures * Neurology consulted * Tele monitor * Seizure precautions * Keppra 500mg BID * Will possibly need continuous EEG (2) Syncope: Qualifiers: Syncope type: unspecified Qualified Code(s): R55 - Syncope and collapse Code(s): R55 - Syncope and collapse Status: Acute Assessment and Plan: * Narcolepsy ruled out * Apnea link screening test tonight * MRI of the brain shows normal brain * Echocardiogram: EF 55-60% * Carotid Doppler: <50% Bilaterally * Patient states that he was on Holter monitor in the outpatient setting * Other etiologies not completely ruled out * EEG did not show seizures * Start on Keppra 500mg BID and watch * Consult neurology thank you * PT/OT thank you (3) Dizziness: Code(s): R42 - Dizziness and giddiness Status: Acute Assessment and Plan: * Patient stated that he does get dizzy when adjusting positions * Meclizine 25mg TID PO scheduled here PRN at home * PT/OT eval (4) Dyslipidemia: Code(s): E78.5 - Hyperlipidemia, unspecified Status: Acute Assessment and Plan: * Continue atorvastatin 40mg PO daily (5) Depression: Qualifiers: Depression Type: unspecified Qualified Code(s): F32.9 - Major depressive disorder, single episode, unspecified Code(s): F32.9 - Major depressive disorder, single episode, unspecified Status: Acute Assessment and Plan: * Continue fluoxetine 20mg PO daily Time Spent With Patient Time with patient: Greater than 35 minutes Subjective Date/time seen: 12/27/20 15:46 Interval history: This is a 55-year-old male with past medical history significant for dyslipidemia, depression. 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 Today patient is doing better. He stated that it really only happens when he is having a BM. Patient has not had a BM today thus far. He no other complaints like chest pain, shortness of breath, nausea, vomiting, diarrhea, dizziness, or lightheadedness. Review of Systems Review of Systems: All systems reviewed & are unremarkable except as noted in HPI and below Exam Const: General: cooperative, comfortable, no acute distress, well developed, alert, awake, well groomed and other (Well-appearing) Nutritional Appearance: average body habitus Orientation/consciousness: patient oriented x3 HENMT: Head: normal to inspection, normocephalic and atraumatic Ears: hearing grossly normal bilaterally General nose exam: Normal external nose present Face and sinus: normal facial exam Eyes: General: appearance normal, both eyes and all related structures Alignment and Position: alignment normal Sclera: sclerae normal Pupils: Equal, round and reactive pupils present EOM: EOMs intact bilaterally Neck: Neck: full ROM, no lymphadenopathy and no JVD Thyroid: thyroid normal Lymphatic: no lymphadenopathy noted Resp: Effort & Inspection: normal respiratory effort and able to speak in complete sentences
--- NOTE | 2020-12-27 15:46 | PM.IMPN ---
Progress Note: A&P Assessment and Plan (1) Seizures: Code(s): R56.9 - Unspecified convulsions Status: Acute Assessment and Plan: Patient having a syncopal episode with left arm shaking EEG did not rule out seizures Neurology consulted Tele monitor Seizure precautions Keppra 500mg BID Will possibly need continuous EEG (2) Syncope: Qualifiers: Syncope type: unspecified Qualified Code(s): R55 - Syncope and collapse Code(s): R55 - Syncope and collapse Status: Acute Assessment and Plan: Narcolepsy ruled out Apnea link screening test tonight MRI of the brain shows normal brain Echocardiogram: EF 55-60% Carotid Doppler: <50% Bilaterally Patient states that he was on Holter monitor in the outpatient setting Other etiologies not completely ruled out EEG did not show seizures Start on Keppra 500mg BID and watch Consult neurology thank you PT/OT thank you (3) Dizziness: Code(s): R42 - Dizziness and giddiness Status: Acute Assessment and Plan: Patient stated that he does get dizzy when adjusting positions Meclizine 25mg TID PO scheduled here PRN at home PT/OT eval (4) Dyslipidemia: Code(s): E78.5 - Hyperlipidemia, unspecified Status: Acute Assessment and Plan: Continue atorvastatin 40mg PO daily (5) Depression: Qualifiers: Depression Type: unspecified Qualified Code(s): F32.9 - Major depressive disorder, single episode, unspecified Code(s): F32.9 - Major depressive disorder, single episode, unspecified Status: Acute Assessment and Plan: Continue fluoxetine 20mg PO daily Time Spent With Patient Time with patient: Greater than 35 minutes Subjective Date/time seen: 12/27/20 15:46 Interval history: This is a 55-year-old male with past medical history significant for dyslipidemia, depression. 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 Today patient is doing better. He stated that it really only happens when he is having a BM. Patient has not had a BM today thus far. He no other complaints like chest pain, shortness of breath, nausea, vomiting, diarrhea, dizziness, or lightheadedness. Review of Systems Review of Systems: All systems reviewed & are unremarkable except as noted in HPI and below Exam Const: General: cooperative, comfortable, no acute distress, well developed, alert, awake, well groomed and other (Well-appearing) Nutritional Appearance: average body habitus Orientation/consciousness: patient oriented x3 HENMT: Head: normal to inspection, normocephalic and atraumatic Ears: hearing grossly normal bilaterally General nose exam: Normal external nose present Face and sinus: normal facial exam Eyes: General: appearance normal, both eyes and all related structures Alignment and Position: alignment normal Sclera: sclerae normal Pupils: Equal, round and reactive pupils present EOM: EOMs intact bilaterally Neck: Neck: full ROM, no lymphadenopathy and no JVD Thyroid: thyroid normal Lymphatic: no lymphadenopathy noted Resp: Effort & Inspection: normal respiratory effort and able to speak in complete sentences Auscultation: clear to auscultation bilaterally, no crackles, no rales and no rhonchi Cardio: Jugular venous distension: no JVD Rate: regular rate Rhythm: regular rhythm Heart sounds: S1 normal heart sound present and S2 normal heart sound present GI: Inspection: normal to inspection : General: Yes deferred Skin: Rashes: no rashes Wounds: no wounds Neuro: General: patient oriented x3 and CN's II-XI intact bilaterally Cranial nerves: Yes CN's II-XII intact bilaterally and Yes Equal, round and reactive pupils present Cogni
[2020-12-27] MEDS: levETIRAcetam 500 MG TABLET PO ×2 (16:53→22:24)
[2020-12-28] VITALS (19 sets, daily range): BP systolic 100–147; BP diastolic 54–83; PULSE 51–87; RESP 12–18; TEMP 36.1–36.6; O2SAT 96–98
[2020-12-28] MEDS: MECLIZINE HCL 25 MG TABLET PO ×2 (10:12→17:06)
[2020-12-28] MEDS: levETIRAcetam 500 MG TABLET PO ×2 (10:12→21:08)
[2020-12-28] MEDS: ATORVASTATIN 40 MG TABLET PO (10:12)
[2020-12-28] MEDS: ASPIRIN 81 MG CHEWABLE TABLET PO (10:12)
[2020-12-28] MEDS: FLUoxetine HCL 20 MG CAPSULE PO (10:13)
--- NOTE | 2020-12-28 13:46 | WPDNEUROPN ---
Objective Data Vital Signs Vital Signs: Vital Signs - 24 hr 12/27/20 14:00 12/27/20 15:43 12/27/20 15:56 Temperature 36.7 C Pulse Rate 76 61 Respiratory Rate 12 Blood Pressure 132/78 132/78 Pulse Oximetry 98 12/27/20 16:00 12/27/20 19:34 12/27/20 20:00 Temperature 36.3 C L Pulse Rate 69 68 61 Respiratory Rate 20 Blood Pressure 116/62 Pulse Oximetry 97 12/27/20 22:00 12/27/20 23:00 12/27/20 23:31 Temperature 36.4 C Pulse Rate 54 L 57 L 57 L Respiratory Rate 16 20 Blood Pressure 103/55 L Pulse Oximetry 97 97 12/28/20 00:00 12/28/20 02:00 12/28/20 03:49 Temperature 36.4 C Pulse Rate 54 L 51 L 61 Respiratory Rate 16 Blood Pressure 100/54 L Pulse Oximetry 98 12/28/20 04:00 12/28/20 06:00 12/28/20 08:00 Temperature 36.6 C Pulse Rate 55 L 63 78 Respiratory Rate 12 Blood Pressure 105/70 Pulse Oximetry 97 12/28/20 10:00 12/28/20 11:35 12/28/20 12:00 Temperature 36.5 C Pulse Rate 78 76 87 Respiratory Rate 12 Blood Pressure 115/56 L Pulse Oximetry 96 Intake/Output Intake/Output: Intake & Output 12/25/20 12/26/20 12/27/20 12/28/20 23:59 23:59 23:59 23:59 Intake Total 900 1890 1070 Output Total 1000 900 Balance 900 890 170 Meds/Results Medications: Active Medications Generic Name Dose Route Start Last Admin Trade Name Freq PRN Reason Stop Dose Admin Acetaminophen 650 mg 12/25/20 19:12 12/26/20 18:58 Acetaminophen 325 Mg Tablet PO 650 mg Q4H PRN Administration Mild Pain (1-3) or Fever Aspirin 81 mg 12/26/20 08:00 12/28/20 10:12 Aspirin 81 Mg Chewable Tablet PO 81 mg DAILY@0800 SARAVANAN Administration Atorvastatin Calcium 40 mg 12/26/20 09:00 12/28/20 10:12 Atorvastatin 40 Mg Tablet PO 40 mg DAILY SARAVANAN Administration Fluoxetine HCl 20 mg 12/26/20 09:00 12/28/20 10:13 Fluoxetine Hcl 20 Mg Capsule PO 20 mg DAILY SARAVANAN Administration Levetiracetam 500 mg 12/27/20 15:50 12/28/20 10:12 Levetiracetam 500 Mg Tablet PO 500 mg Q12HR SARAVANAN Administration Meclizine HCl 25 mg 12/26/20 17:00 12/28/20 10:12 Meclizine Hcl 25 Mg Tablet PO 25 mg TID SARAVANAN Administration Ondansetron HCl 4 mg 12/25/20 19:12 Ondansetron Inj 4 Mg/2 Ml Vial IV PUSH Q4H PRN Nausea Radiology Results: ITS Impressions Head CT 12/25/20 18:19 IMPRESSION: 1. Normal brain. 2. Chronic sinusitis. Carotid Doppler Study 12/26/20 11:02 IMPRESSION: 1. <50% stenosis from minimal plaque in the right internal carotid artery. 2. <50% stenosis from minimal plaque in the left internal carotid artery. Brain MRI 12/26/20 14:41 IMPRESSION: 1: No acute intracranial abnormality. 2: Right maxillary sinusitis. Chest X-Ray 12/27/20 07:49 IMPRESSION: 1. No acute cardiopulmonary disease.
--- NOTE | 2020-12-28 15:35 | PM.IMPN ---
Progress Note: A&P Assessment and Plan (1) Seizures: Code(s): R56.9 - Unspecified convulsions Status: Acute Assessment and Plan: please see subjective for further details. No significant abnormalities noted on EEG. Discussed case with neurologist, Dr. Reese, who feels this is consistent with partial seizure increase Keppra to 500 mg p.o. BID may benefit from EEG at a later date, recommended to be sleep deprived EEG per Neurology continue to monitor on telemetry seizure precautions in place (2) Syncope: Qualifiers: Syncope type: unspecified Qualified Code(s): R55 - Syncope and collapse Code(s): R55 - Syncope and collapse Status: Acute Assessment and Plan: Seems unlikely based on overall clinical picture; findings more consistent with seizures. Head CT negative. Echocardiogram reviewed with no significant abnormal findings. Carotid Doppler reviewed with < 50% stenosis bilaterally. brain MRI negative. (3) Dizziness: Code(s): R42 - Dizziness and giddiness Status: Acute Assessment and Plan: chronic issue. No complaints of dizziness today. Orthostatic blood pressures negative Meclizine 25mg TID PRN appreciate PT/OT eval (4) Depression: Qualifiers: Depression Type: unspecified Qualified Code(s): F32.9 - Major depressive disorder, single episode, unspecified Code(s): F32.9 - Major depressive disorder, single episode, unspecified Status: Acute Assessment and Plan: mood is stable at this time. Continue fluoxetine 20mg PO daily (5) KAROL (obstructive sleep apnea): Code(s): G47.33 - Obstructive sleep apnea (adult) (pediatric) Status: Acute Assessment and Plan: Noted to have apneic episodes. home sleep study positive. Continue auto PAP 5-15 at night no concerns for narcolepsy. Appreciate pulmonology consultation. Subjective Date/time seen: 12/28/20 15:35 Interval history: This is a 55-year-old male with past medical history significant for dyslipidemia, depression. Patient presented to the emergency room after he had a syncopal episode. Today the patient stated that he was doing better and had no episodes so far, but was concerned about it happening again when going to the bathroom or with certain other activities. Started him on Keppra, will monitor for further episodes and see if Keppra is helping. He no other complaints like chest pain, shortness of breath, nausea, vomiting, diarrhea, dizziness, or lightheadedness. Review of Systems Review of Systems: All systems reviewed & are unremarkable except as noted in HPI and below Exam Const: General: cooperative, comfortable, no acute distress, well developed, alert, awake, well groomed and other (Well-appearing) Nutritional Appearance: average body habitus Orientation/consciousness: patient oriented x3 HENMT: Head: normal to inspection, normocephalic and atraumatic Ears: hearing grossly normal bilaterally General nose exam: Normal external nose present Face and sinus: normal facial exam Eyes: General: appearance normal, both eyes and all related structures Alignment and Position: alignment normal Sclera: sclerae normal Pupils: Equal, round and reactive pupils present EOM: EOMs intact bilaterally Neck: Neck: full ROM, no lymphadenopathy and no JVD Thyroid: thyroid normal Lymphatic: no lymphadenopathy noted Resp: Effort & Inspection: normal respiratory effort and able to speak in complete sentences Auscultation: clear to auscultation bilaterally, no crackles, no rales and no rhonchi Cardio: Jugular venous distension: no JVD Rate: regular rate Rhythm: regular rhythm Heart sounds: S1 normal heart sound present and S2 normal heart sound present GI: Inspection: normal to inspection : General: Yes deferred Skin: Rashes: no rashes Wounds: no wounds Neuro: General: patient oriented x3 and
--- NOTE | 2020-12-28 18:35 | PC.NURSE ---
This patient, Venu Garcia, was transferred to [[id number] ] on 12/28/20 at 1835. Personal belongings sent with patient. Report given to [ Annie GARCIA]. Appropriate documentation sent with patient.
[2020-12-28 23:16] LABS: Glucose Point of Care 137 mg/dl (65-105)
[2020-12-28 23:24] LABS: Alveolar/Arterial O2 Gradient 12.4 mmHg; Base Excess ABG -0.4 mEq/l (+/-2.0); Carboxyhemoglobin 0.3 % THb (0-2.0); Device OTHER DEVICE; Fractional Inspired Oxygen 21 %; Methemoglobin ABG 0.4 %THb (0-1.5); Modified Allen's Test Pass; Oxygen Content ABG 20.2 %vol (16.0-22.0); Oxygen Saturation ABG 97.6 % (95.0-100.0); Oxyhemoglobin 95.9 % THb (90.0-100.0); PCO2 ABG 34.3 mmHg (35.0-45.0); PO2 ABG 96.3 mmHg (80.0-100.0); PO2 FiO2 Ratio Arterial Blood 4.59 %; Reduced Hemoglobin 3.4 %THb (0-5.0); Site Drawn RIGHT RADIAL; Total Hemoglobin 14.9 g/dL (12.0-18.0); pH ABG 7.445 (7.350-7.450)
--- NOTE | 2020-12-28 23:34 | PC.NURSE ---
Pt found by DIGITAL IMAGER starring and not responding after pt pushed the call light. RN called to the room and witnessed pt starring off and not responding to verbal or shaking arousals. Pt vitals were taken and they were 144/74, 79pulse, 98%O2. Pt continued to have prolonged starring episodes followed by 15-20 sec apneic episodes. Pt had 2 episodes of bilateral arm shaking with starring off without arousal to verbal or shaking. Rapid response was called. Another set of vitals were taken right after the rapid was called and pt still stable at 147/83, 77pulse, 97%O2. Both hospitalist, Js and Keila came to the room to evaluate the pt. No further orders placed. Call was placed to Naseer for further orders.
[2020-12-28] MEDS: levETIRAcetam 1000MG/NACL100ML 1,000 MG/100 ML BAG 200 MG IVPB (23:40)
[2020-12-29] VITALS (16 sets, daily range): BP systolic 101–147; BP diastolic 61–83; PULSE 57–80; RESP 16–17; TEMP 36.1–36.4; O2SAT 96–98
[2020-12-29] MEDS: FLUoxetine HCL 20 MG CAPSULE PO (08:24)
[2020-12-29] MEDS: MECLIZINE HCL 25 MG TABLET PO ×2 (08:24→16:30)
[2020-12-29] MEDS: ASPIRIN 81 MG CHEWABLE TABLET PO (08:24)
[2020-12-29] MEDS: levETIRAcetam 500 MG TABLET PO (08:24)
[2020-12-29] MEDS: ATORVASTATIN 40 MG TABLET PO (08:24)
--- NOTE | 2020-12-29 12:37 | PC.NURSE ---
At 10:40 patient was returning from the bathroom with the SUPERVISOR FINAL after having a BM and he stated he was feeling funny, SUPERVISOR FINAL called me to the room. Patient was returned to bed and he started to stare out and not answer questions, he also had periods of apnea which ranged from 15-20 seconds,Vitals were stable, CPAP was applied PA was notified. Patient continued to have these symptoms until 11:35. Patient answered questions appropriately and does not have any slurred speech. He states he is tired and has head numbness from his forehead to the back of his neck. He remembers feeling funny and only a little about the PA and RN being in the room when questioned.
[2020-12-29] MEDS: ACETAMINOPHEN 325 MG TABLET 650 MG PO (16:30)
--- NOTE | 2020-12-29 16:44 | PM.IMPN ---
Progress Note: A&P Assessment and Plan (1) Seizures: Code(s): R56.9 - Unspecified convulsions Status: Acute Assessment and Plan: please see subjective for further details. No significant abnormalities noted on EEG. Discussed case with neurologist, Dr. Reese, who feels this is consistent with partial seizure increase Keppra to 750 mg p.o. BID may benefit from EEG at a later date, recommended to be sleep deprived EEG per Neurology continue to monitor on telemetry seizure precautions in place (2) Syncope: Qualifiers: Syncope type: unspecified Qualified Code(s): R55 - Syncope and collapse Code(s): R55 - Syncope and collapse Status: Acute Assessment and Plan: Seems unlikely based on overall clinical picture; findings more consistent with seizures. Head CT negative. Echocardiogram reviewed with no significant abnormal findings. Carotid Doppler reviewed with < 50% stenosis bilaterally. brain MRI negative. (3) Dizziness: Code(s): R42 - Dizziness and giddiness Status: Acute Assessment and Plan: chronic issue. No complaints of dizziness today. Orthostatic blood pressures negative Meclizine 25mg TID PRN appreciate PT/OT eval (4) Depression: Qualifiers: Depression Type: unspecified Qualified Code(s): F32.9 - Major depressive disorder, single episode, unspecified Code(s): F32.9 - Major depressive disorder, single episode, unspecified Status: Acute Assessment and Plan: mood is stable at this time. Continue fluoxetine 20mg PO daily (5) KAROL (obstructive sleep apnea): Code(s): G47.33 - Obstructive sleep apnea (adult) (pediatric) Status: Acute Assessment and Plan: Noted to have apneic episodes. home sleep study positive. Continue auto PAP 5-15 at night no concerns for narcolepsy. Appreciate pulmonology consultation. Subjective Date/time seen: 12/29/20 16:44 Interval history: date of service: 12/29/2020 Venu Garcia is a 55-year-old male with a history of dizziness and hyperlipidemia who is seen in follow-up for suspected partial seizure. upon my initial evaluation this morning, he was feeling very well. He did note that last night he had a episode in which he spaced out for quite a while had trouble recalling the event. He noted that afterwards he felt numbness and tingling in his legs. He also felt a quivering in his chest. The sensation lasted approximately 30 minutes. He reports a total of 3 episodes like this. The 1st episode, he noted blurry vision prior to the episode. Overall he feels lightheaded and weak. He denies nausea, vomiting, fever, chills, dizziness, shortness breath, cough, or chest pain. No abdominal pain, cramping, bloating. No urinary symptoms. He has been having regular bowel movements. Denies any episodes of bleeding. He denies any recent new stressors. denies alcohol or drug use. On my second evaluation around 10:40 am I was called to the patient's room. he had told the CONTINUOUS CONVEYOR SCREEN DRIER that he was feeling funny and shortly after he began staring off into space and an approximate 15 second apneic episode was noted. RN noted a twitching in the left arm. On my evaluation, he was maintaining a left-sided gaze and would intermittently blink. his pupils were reactive to light but he did not track the light with his eyes. He seemed to come and go out of this and would occasionally look around and make eye contact with me. At that time if I said his name he would respond but then would again go back to staring to the left. I asked him to squeeze my hand and he was able to do so. this went on for about 45-50 minutes in entirety. After the episode, he again noted a tingling sensation in his lower extremities and his head. He was A&O x4 after the event and could recall feeling poorly beforehand. Review of Systems Review of Systems:
[2020-12-29] MEDS: levETIRAcetam 250 MG TABLET 750 MG PO (20:22)
--- NOTE | 2020-12-29 20:26 | PC.NURSE ---
Pt stated that his sister who called him this evening at shift change, approx 1900, said she has had seizures since the age of 34. Pt stated he did not know he had a family history of seizures. Pt sister takes 1200mg of Keppra according to pt.
[2020-12-30] VITALS (12 sets, daily range): BP systolic 102–130; BP diastolic 51–83; PULSE 58–96; RESP 15–18; TEMP 36.2–36.9; O2SAT 77–98
[2020-12-30 05:38] LABS: Hematocrit 41.7 % (42.0-52.0); Hemoglobin 14.1 g/dL (14.0-18.0); Mean Corpuscular HGB Conc 33.8 g/dl (32-36); Mean Corpuscular Hemoglobin 30.5 pg (26-34); Mean Corpuscular Volume 90.3 fl (80-100); Mean Platelet Volume 10.6 fl (7.4-10.4); Platelet Count Result 221 k/mm3 (150-375); Red Blood Count 4.62 M/mm3 (4.6-6.20); Red Cell Distribution Width 11.9 % (11.5-14.5); White Blood Count 6.8 K/mm3 (4.5-10.0)
[2020-12-30 05:51] LABS: Alanine Aminotransferase 31 U/L (4-50); Alkaline Phosphatase 83 U/L (38-126); Anion Gap 7 mmol/L (8-16); Aspartate Amino Transferase 23 U/L (17-59); Bilirubin,Total 0.3 mg/dL (0.2-1.3); Blood Urea Nitrogen 14 mg/dL (9-20); Calcium 9.2 mg/dL (8.4-10.2); Carbon Dioxide 30 mmol/L (22-30); Chloride 104 mmol/L (98-107); Estimated CRCL calculation 67 ml/min; Estimated Glomerular Filt Rate > 60; Glucose 113 mg/dL (75-110); Potassium 4.3 mmol/L (3.4-5.0); Sodium 141 mmol/L (137-145)
--- NOTE | 2020-12-30 06:27 | PC.NURSE ---
At approximately 0115 the pt called for the RN to come in the room. I went to check on the pt and he stated he woke up feeling depressed . I asked him if something happened to make him feel this way. He said no and said he just felt off and that something was wrong. I took vitals and the pt was 112/71 bp, 64 pulse, 18 respirations and 97%O2. I stayed with the pt and talked with him for the next 30 minutes. No seizure-like activity was witnessed. I explained some of the possible side effects of Keppra and stated he may be feeling different because his body needs to adjust to the medication.. The pt proceeded to talk about his family, work and various life events. The pt stated he felt more relaxed. I was called out of the room for another pt's issue. I returned within approximately 15-20 minutes and the pt was placing his autopap and stated he would try to rest more. 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
[2020-12-30 06:53] LABS: Folic Acid 5.6 ng/mL (2.76->20)
[2020-12-30] MEDS: ASPIRIN 81 MG CHEWABLE TABLET PO (08:19)
[2020-12-30] MEDS: FLUoxetine HCL 20 MG CAPSULE PO (08:20)
[2020-12-30] MEDS: levETIRAcetam 250 MG TABLET 750 MG PO (08:20)
[2020-12-30] MEDS: ATORVASTATIN 40 MG TABLET PO (08:20)
--- NOTE | 2020-12-30 14:49 | PM.DS ---
DS: Admitting Diagnosis Admitting Diagnosis Admitting Diagnosis: seizure DS: Discharge Diagnosis Discharge Diagnosis (1) Seizures: Code(s): R56.9 - Unspecified convulsions Status: Acute Assessment and Plan: He had 3-4 episodes of spacing out in which he would stare off into space and be poorly responsive. He was seen in consultation by Neurology and this was felt to be consistent with partial seizures. No significant abnormalities noted on EEG. He was monitored on telemetry and had no pauses or arrhythmias. He was started on Keppra which was increased to 750 mg BID. He will follow-up with Dr. Reese as an outpatient and will have a sleep-deprived EEG. Seizure precautions discussed at length, including avoidance of driving, bathing, swimming. (2) Syncope: Qualifiers: Syncope type: unspecified Qualified Code(s): R55 - Syncope and collapse Code(s): R55 - Syncope and collapse Status: Acute Assessment and Plan: Ruled out based on overall clinical picture more consistent with seizures. Head CT negative. Echocardiogram reviewed with no significant abnormal findings. Carotid Doppler reviewed with < 50% stenosis bilaterally. brain MRI negative. (3) Dizziness: Code(s): R42 - Dizziness and giddiness Status: Acute Assessment and Plan: Chronic with no acute issues during hospitalization. Orthostatic blood pressures negative. Continue Meclizine 25mg TID PRN (4) Depression: Qualifiers: Depression Type: unspecified Qualified Code(s): F32.9 - Major depressive disorder, single episode, unspecified Code(s): F32.9 - Major depressive disorder, single episode, unspecified Status: Acute Assessment and Plan: Mood remained stable. We had a long talk regarding the changes associated with this new medical diagnosis of seizures. he was in good spirits and handling it well. Denied any increased depression or thoughts of harming himself. Encouraged him that should he feel overwhelmed, he should seek support from a loved one or medical provider. Continue fluoxetine 20mg PO daily (5) KAROL (obstructive sleep apnea): Code(s): G47.33 - Obstructive sleep apnea (adult) (pediatric) Status: Acute Assessment and Plan: Noted to have apneic episodes. Home sleep study positive. he was seen in consultation by pulmonology who recommended continuation of his CPAP settings, auto PAP 5-15 at night. no concerns for narcolepsy based on pulmonology evaluation DS: Summary Hospital Course Hospital Course: date of admission: 12/25/2020 date of discharge: 12/30/2020 Venu Garcia is a 55-year-old male with a history of dizziness and hyperlipidemia who presented to the emergency department on 12/25/2020 after having an episode at work in which he was trying to clock and and was unable to do so, reporting he went blank . his coworkers noted that he had some twitching during this episode. Upon presentation to the emergency department, his vital signs were stable, CBC and BMP unremarkable, troponin negative, alcohol level negative, head CT showed normal brain. He was admitted to the hospitalist service for further evaluation and management and was seen in consultation by Neurology. Please see above for further details. On 12/29/2020, I witnessed him to have an episode that was felt to be consistent with partial seizures, Based on neurology evaluation. Please see note from 12/29/2020 for further details regarding episode. He was started on medication and began feeling much better. We discussed seizure precautions at length. He was feeling better and requested discharge home. He was determined to no longer require inpatient care and was felt to be stable for discharge. He will need to follow-up with neurology as an outpatient. He was provided a note for work. We discussed worrisome signs and symptoms for which to return and he was educ
== END 2020-12-30 16:35 | disposition home or self-care (01) | DRG 101 ==
LOC: ANHED 18:50 → ANH2MED 20:23 → ANHIMU 12-26 19:20 → ANH2MED 12-28 18:40
PROVIDERS: Nurse Practitioner; Physician Assistant; Admitting Provider Family Medicine; Emergency Provider Family Medicine; PCP Family Medicine; Visit Provider Family Medicine
DX: R56.9 Unspecified convulsions (principal); E78.5 Hyperlipidemia, unspecified; R42 Dizziness and giddiness; G47.33 Obstructive sleep apnea (adult) (pediatric); F32.9 Major depressive disorder, single episode, unspecified; Z79.899 Other long term (current) drug therapy
CPT/HCPCS: 36415; 36600; 70450; 70551; 71045; 80048; 80053; 80307; 82375; 82607; 82746; 82805; 82948; 83050; 84484; 85025; 85027; 93005; 93306; 93880; 94762; 95816; 97161; 97165; 99285; A9270; G0378; J1953

== ENCOUNTER 2021-01-13 18:39 | Emergency (ER) | payer OTHER, SELFPAY ==
[2021-01-13] VITALS (7 sets, daily range): BP systolic 108–134; BP diastolic 74–86; PULSE 56–71; RESP 10–16; TEMP 36.9; O2SAT 98
--- NOTE | ~2021-01-13 | XR_ITS ---
EXAMINATION: XR chest 2V EXAM DATE: 01/13/2021 19:41 INDICATION: Weakness, seizures. Head numbness. TECHNIQUE: Frontal and lateral projections of the chest obtained and reviewed. Comparison is made to prior examination from 12/27/2020. FINDINGS: The lungs are clear. There are no pleural effusions. The cardiomediastinal silhouette is within normal limits. There is no pneumothorax suspected. The bones and soft tissues are unremarkab le. IMPRESSION: No acute cardiopulmonary findings. Reviewed, dictated and finalized at location A.
--- NOTE | ~2021-01-13 | CT_ITS ---
EXAMINATION: CT brain wo con EXAM DATE: 01/13/2021 23:00 INDICATION: Seizure. TECHNIQUE: Spiral CT of the head was performed without contrast. Axial, coronal and sagittal images were reviewed. The dose-length product (DLP) for this examination was 605.33 mGy-cm. The exposure w as tailored according to patient size, and iterative reconstruction (ASIR) was used as additional dos e reduction technique. Comparison is made to prior examination from 12/25/2020. FINDINGS: There is no acute intraparenchymal hemorrhage. No evidence of intraparenchymal brain mass lesion. No evidence of acute infarction. There is no mass effect or midline shift. The ventricles are normal in size. There are no extra-axial collections. There are no acute calvarial fractures. T he orbits are unremarkable. Soft tissue is unremarkable. Chronic right maxillary sinus wall thicken ing. There is no significant interval change. IMPRESSION: 1. No acute intracranial findings. Reviewed, dictated and finalized at location G.
--- NOTE | 2021-01-13 19:22 | ECG_ITS ---
Measurements Intervals [place] Rate: 67 P: 59 CT: 175 QRS: 66 QRSD: 92 T: 48 QT: 373 QTc: 394 Interpretive Statements SINUS RHYTHM NORMAL ECG Electronically Signed On 01-14-2021 5:59:13 CDT by Deondre Montoya D.O.
[2021-01-13 19:42] LABS: Basophils Absolute Auto 0.1 K/mm3 (0.0-0.1); Basophils Percent Auto 0.7 % (0.2-1.2); Eosinophils Absolute Auto 0.3 K/mm3 (0-0.3); Eosinophils Percent Auto 3.7 % (0-4.4); Hematocrit 44.1 % (42.0-52.0); Hemoglobin 14.9 g/dL (14.0-18.0); Immature Granulocyte Absolute 0.03 K/mm3 (0.00-0.031); Immature Granulocyte Percent A 0.3 % (0-0.5); Lymphocytes Absolute Auto 1.97 K/mm3 (0.9-3.2); Lymphocytes Percent Auto 21.9 % (18.3-44.2); Mean Corpuscular HGB Conc 33.8 g/dl (32-36); Mean Corpuscular Hemoglobin 30.8 pg (26-34); Mean Corpuscular Volume 91.3 fl (80-100); Mean Platelet Volume 10.2 fl (7.4-10.4); Monocytes Absolute Auto 0.8 K/mm3 (0.1-0.6); Monocytes Percent Auto 8.7 % (2.6-8.5); Neutrophils Absolute Auto 5.8 K/mm3 (1.3-6.7); Neutrophils Percent Auto 64.7 % (45.5-73.1); Platelet Count Result 225 k/mm3 (150-375); Red Blood Count 4.83 M/mm3 (4.6-6.20); Red Cell Distribution Width 12.5 % (11.5-14.5)
[2021-01-13 19:51] LABS: Alanine Aminotransferase 30 U/L (4-50); Albumin Level 4.6 g/dL (3.5-5.1); Alkaline Phosphatase 83 U/L (38-126); Anion Gap 11 mmol/L (8-16); Aspartate Amino Transferase 30 U/L (17-59); Bilirubin,Total 0.5 mg/dL (0.2-1.3); Blood Urea Nitrogen 20 mg/dL (9-20); Calcium 10.5 mg/dL (8.4-10.2); Carbon Dioxide 28 mmol/L (22-30); Chloride 102 mmol/L (98-107); Estimated Glomerular Filt Rate > 60; Glucose 96 mg/dL (75-110); Potassium 4.3 mmol/L (3.4-5.0); Sodium 141 mmol/L (137-145)
[2021-01-13 20:13] LABS: Add Urine Microscopic? YES; Appearance Urine Clear (Clear); Bacteria Urine Trace /hpf; Bilirubin Urine Negative (Negative); Blood Urine 1+ (Negative); Color Urine Yellow (Yellow); Glucose Urine UA Negative (Negative); Ketones Urine Negative (Negative); Leukocyte Esterase Ur Negative LEU/UL (Negative); Mucus Urine Rare /lpf; Nitrate Urine Negative (Negative); Protein Urine Negative (Negative); Specific Grav Ur 1.016 (1.001-1.035); Squamous Epithelial Cell Urine Rare /hpf (Few); Urobilinogen Urine Negative mg/dL (<2.0); WBC Urine 0-3 /hpf
--- NOTE | 2021-01-13 22:52 | ED.NEUROSD ---
HPI - Neuro Symptoms/Deficit General Chief Complaint: Neuro Symptoms/Deficit Stated Complaint: FREQ SZ AND HEAD NUMBNESS [id number] Time Seen by Provider: 01/13/21 22:14 Source: patient and RN notes reviewed Mode of arrival: ambulatory Limitations: no limitations History of Present Illness HPI Narrative: This is a 55 year old male with history of partial seizures who presents for evaluation of continued seizures. Patient reports he has been having seizures since August. He was finally diagnosed as having partial seizures 2 weeks ago and he was started on Keppra. He has come to ER today because he states he continues to have 2 -3 seizures per day. He states he constant has prickly feeling in his head for 2 weeks. He states his girlfriend told him he had one episode today in which he just suddenly fell. He also reports another episode that occurred while he was laying bed. He denies focal deficits. He reports he occasionally gets blurred vision before his episodes. He states currently he no long can tell when he is about to have a seizure. He has an appointment with neurology on January 21. He states is compliant with his medications. Related Data Home Medications Medication Instructions Recorded Confirmed ibuprofen 600 mg PO Q6H PRN 09/25/20 12/25/20 meclizine 25 mg PO TID PRN 09/25/20 12/25/20 atorvastatin 40 mg PO DAILY 12/25/20 12/25/20 fluoxetine 20 mg PO DAILY 12/25/20 12/25/20 Allergies Allergy/AdvReac Type Severity Reaction Status Date / Time atenolol AdvReac Hypotension Verified 01/13/21 21:36 Review of Systems Review of Systems: All systems reviewed & are unremarkable except as noted in HPI and below PMFSH Past Medical History Medical History (Updated 01/14/21 @ 00:04 by Anamika Hahn MD) Dizziness Seizures Family History Family History (Updated 12/30/20 @ 06:45 by Rita Pang RN) Father Heart disease Sibling Seizures Social History Social History Alcohol intake: never Gender identity (if verbalized by the patient): Male Spiritual care concerns: No Exam Narrative: Exam Narrative: GENERAL: Well-appearing, well-nourished, and in no acute distress. HEAD: Normocephalic, atraumatic EYES: PERRLA and EOMI, conjunctiva clear without discharge EARS: TM's clear bilaterally without erythema or dullness NOSE: Nares clear, no rhinorrhea or epistaxis THROAT:Mucous membranes moist, Oropharynx normal without erythema, exudate, peritonsillar swelling or fluctuance NECK: Supple, without lymphadenopathy or mass RESPIRATORY: No respiratory distress, Airway patent, Respirations non-labored, Clear to auscultation without rales, rhonchi or wheeze HEART: Regular rate and rhythm. No murmur heard. Normal peripheral pulses. ABDOMEN: Soft, nontender, nondistended, normal active bowel sounds. No masses. No rebound or guarding, No organomegaly. EXTREMITIES: No edema, normal strength with full range of motion. SKIN: Warm, dry, normal color without rash NEURO: Alert and oriented x3. CN 2-12 grossly intact. No focal deficits. PSYCH: Normal mood and affect. Course Reevaluation(s) Reevaluation #1: Patient has been resting comfortable with out any episode. he is at baseline. I spoke with DR. Reese who recommends increasing KEppra to 1000 mg BID. He was given 1000 mg in ED. I have discussed plan with patient to discharge. Date: 01/14/21 Time: 00:00 Vital Signs Vital signs: Vital Signs Temperature 98.5 F 01/13/21 19:52 Pulse Rate 71 01/13/21 19:52 Respiratory Rate 16 01/13/21 19:52 Blood Pressure 120/76 01/13/21 19:52 Pulse Oximetry 98 01/13/21 19:52 Temperature 98.5 F 01/13/21 19:52 Pulse Rate 70 01/14/21 00:22 Respiratory Rate 16 01/13/21 22:46 Blood Pressure 121/81 01/14/21 00:22 Pulse Oximetry 98 01/14/21 00:22 MDM - Neuro Symptoms/Deficit Medical Records Attestation: I reviewe
[2021-01-13] MEDS: levETIRAcetam 1000MG/NACL100ML 1,000 MG/100 ML BAG 400 MG IVPB (23:14)
[2021-01-14 00:22] VITALS: BP 121/81; PULSE 70; O2SAT 98
== END 2021-01-14 00:11 | disposition home or self-care (01) ==
PROVIDERS: Emergency Medicine; Emergency Provider General Practice; PCP Family Medicine
DX: G40.909 Epilepsy, unspecified, not intractable, without status epilepticus (principal); Z79.1 Long term (current) use of non-steroidal anti-inflammatories (NSAID)
CPT/HCPCS: 36415; 70450; 71046; 80053; 81001; 85025; 93005; 96374; 99284; J1953

== ENCOUNTER 2021-01-17 20:05 | Emergency (ER) | payer OTHER, SELFPAY ==
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
[2021-01-17 20:04] VITALS: BP 133/88; PULSE 69; RESP 18; TEMP 36.8; O2SAT 96
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
[2021-01-17 22:10] VITALS: BP 132/80; PULSE 70; RESP 18; O2SAT 99
== END 2021-01-17 22:12 | disposition home or self-care (01) ==
PROVIDERS: Emergency Provider Emergency Medicine; PCP Internal Medicine
DX: M89.8X8 Other specified disorders of bone, other site (principal)
CPT/HCPCS: 71101; 99283

== ENCOUNTER 2021-03-26 09:32 | Outpatient (CLI) | payer OTHER, SELFPAY ==
--- NOTE | 2021-03-26 11:00 | NEURO_ITS ---
Impression: # Complains of numbness of hands. History of left elbow surgery with limited movement. # Bilateral ulnar neuropathy across the elbows. # No Carpal Tunnel Syndrome. # Normal needle/EMG exam. Nerve Conduction Studies Anti Sensory Summary Table Stim Site NR Peak (ms) P-T Amp (?V) Site1 Site2 Delta-P (ms) Dist (cm) Esvin (m/s) Left Median Anti Sensory (2-3nd Digit) Wrist 2.6 72.9 Wrist 2-3nd Digit 2.6 14.0 54 Wrist 2.7 45.7 Wrist 2-3nd Digit 2.6 14.0 54 Right Median Anti Sensory (2-3nd Digit) Wrist 2.7 46.4 Wrist 2-3nd Digit 2.7 14.0 52 Wrist 2.8 50.5 Wrist 2-3nd Digit 2.7 14.0 52 Left Radial Anti Sensory (Base 1st Digit) Wrist 2.0 15.2 Wrist Base 1st Digit 2.0 0.0 Right Radial Anti Sensory (Base 1st Digit) Wrist 1.9 18.2 Wrist Base 1st Digit 1.9 0.0 Left Ulnar Anti Sensory (5th Digit) Wrist 2.6 11.9 Wrist 5th Digit 2.6 14.0 54 Right Ulnar Anti Sensory (5th Digit) Wrist 2.4 28.6 Wrist 5th Digit 2.4 14.0 58 Motor Summary Table Stim Site NR Onset (ms) O-P Amp (mV) Site1 Site2 Delta-0 (ms) Dist (cm) Esvin (m/s) Left Median Motor (Abd Poll Brev) Wrist 3.5 3.3 Elbow Wrist 4.9 27.0 55 Elbow 8.4 2.7 Right Median Motor (Abd Poll Brev) Wrist 3.4 1.7 Elbow Wrist 4.3 26.0 60 Elbow 7.7 3.1 Left Ulnar Motor (Abd Dig Minimi) Wrist 2.6 5.1 A Elbow Wrist 5.4 27.0 50 A Elbow 8.0 3.2 B Elbow Wrist 3.4 20.0 59 B Elbow 6.0 3.1 Right Ulnar Motor (Abd Dig Minimi) Wrist 3.3 4.3 A Elbow Wrist 5.9 27.0 46 A Elbow 9.2 3.8 B Elbow Wrist 3.4 21.0 62 B Elbow 6.7 2.9 F Wave Studies NR F-Lat (ms) L-R F-Lat (ms) Left Median (Mrkrs) (Abd Poll Brev) 29.46 1.10 Right Median (Mrkrs) (Abd Poll Brev) 28.36 1.10 Left Ulnar (Mrkrs) (Abd Dig Min) 29.30 0.24 Right Ulnar (Mrkrs) (Abd Dig Min) 29.54 0.24 EMG Side Muscle Nerve Root Ins Act Fibs Amp Dur Recrt Comment Right 1stDorInt Ulnar C8-T1 Nml Nml Nml >12ms Reduced Right Ext Indicis Radial (Post Int) C7-8 Nml Nml Nml Nml Nml Right Ext Digitorum Radial (Post Int) C7-8 Nml Nml Nml Nml Nml Right BrachioRad Radial C5-6 Nml Nml Nml Nml Nml Right PronatorTeres Median C6-7 Nml Nml Nml Nml Nml Right Abd Poll Brev Median C8-T1 Nml Nml Nml Nml Nml Left 1stDorInt Ulnar C8-T1 Nml Nml Nml >12ms Reduced Left Ext Indicis Radial (Post Int) C7-8 Nml Nml Nml Nml Nml Left Ext Digitorum Radial (Post Int) C7-8 Nml Nml Nml Nml Nml Left BrachioRad Radial C5-6 Nml Nml Nml Nml Nml Left PronatorTeres Median C6-7 Nml Nml Nml Nml Nml Left Abd Poll Brev Median C8-T1 Nml Nml Nml Nml Nml MTDD
== END 2021-03-26 09:33 | disposition home or self-care (01) ==
PROVIDERS: PCP Internal Medicine; Visit Provider Psychiatry & Neurology Neurology
DX: G56.23 Lesion of ulnar nerve, bilateral upper limbs (principal)
CPT/HCPCS: 95886; 95911

== ENCOUNTER 2021-06-19 15:23 | Emergency (ER) | payer OTHER, SELFPAY ==
[2021-06-19] VITALS (16 sets, daily range): BP systolic 113–152; BP diastolic 76–102; PULSE 43–64; RESP 11–18; TEMP 35.7–36.8; O2SAT 96–100
--- NOTE | ~2021-06-19 | CT_ITS ---
EXAMINATION: CT abdomen pelvis wo con DATE: 06/19/2021 20:31 INDICATION: Left flank pain TECHNIQUE: Computed tomography (CT) of the abdomen and pelvis was performed without intravenous contr ast. The dose-length product was 297.95 mGy-cm. Automated exposure control and iterative reconstructi on technique were employed. KUB. COMPARISON: None. FINDINGS: Lung bases are unremarkable. Heart size is normal. No significant pleural or pericardial ef fusion. Small hiatal hernia. No significant vascular abnormality. No lymphadenopathy. The liver, sple en, pancreas, adrenal glands and kidneys are unremarkable. No hydronephrosis. Bladder is unremarkable . Ureters are normal in course and caliber. Gallbladder is present. Nonobstructive bowel gas pattern. No acute osseous abnormality. KUB: Nonobstructive bowel gas pattern. No renal stones identified. IMPRESSION: 1. No acute abdominal abnormality. Reviewed, dictated and finalized at location A. OF ALL TRADES
--- NOTE | ~2021-06-19 | XR_ITS ---
EXAMINATION: XR chest 2V EXAM DATE: 06/19/2021 15:53 INDICATION: Mid chest pain. History of leaky valve. Heart attack 2015. TECHNIQUE: Frontal and lateral projections of the chest obtained and reviewed. Comparison is made to prior examination from 01/13/2021. FINDINGS: The lungs are clear. There are no pleural effusions. The cardiomediastinal silhouette is within normal limits. There is no pneumothorax suspected. The bones and soft tissues are unremarkab le. IMPRESSION: Unremarkable chest x-ray exam. Reviewed, dictated and finalized at location B. ATCH OFFICER
--- NOTE | ~2021-06-19 | XR_ITS ---
XR abdomen/kub 1V 06/19/2021 20:36 INDICATION: Left flank pain TECHNIQUE: KUB COMPARISON: None FINDINGS: Bowel gas pattern is normal. There is no evidence of free air, mass, organomegaly, ascites or obstruction. No abnormal calculi are seen. The bones appear intact. IMPRESSION: 1: No acute abdominal abnormality identified. Reviewed, dictated and finalized at location A. IED BEHAVIOR SPECIALIST
--- NOTE | 2021-06-19 15:27 | ECG_ITS ---
Measurements Intervals [place] Rate: 63 P: 54 [place]: 177 QRS: 48 QRSD: 100 T: 45 QT: 404 QTc: 415 Interpretive Statements SINUS RHYTHM NORMAL ECG Electronically Signed On 06-19-2021 15:52:08 ORTHO NURSE by Deondre Montoya D.O.
[2021-06-19 16:09] LABS: Basophils Absolute Auto 0.1 K/mm3 (0.0-0.1); Basophils Percent Auto 1.4 % (0.2-1.2); Eosinophils Absolute Auto 0.4 K/mm3 (0-0.3); Eosinophils Percent Auto 7.3 % (0-4.4); Hematocrit 41.9 % (42.0-52.0); Hemoglobin 14.5 g/dL (14.0-18.0); Immature Granulocyte Absolute 0.02 K/mm3 (0.00-0.031); Immature Granulocyte Percent A 0.4 % (0-0.5); Lymphocytes Absolute Auto 1.53 K/mm3 (0.9-3.2); Lymphocytes Percent Auto 29.5 % (18.3-44.2); Mean Corpuscular HGB Conc 34.6 g/dl (32-36); Mean Corpuscular Hemoglobin 31.4 pg (26-34); Mean Corpuscular Volume 90.7 fl (80-100); Mean Platelet Volume 10.3 fl (7.4-10.4); Monocytes Absolute Auto 0.5 K/mm3 (0.1-0.6); Monocytes Percent Auto 9.7 % (2.6-8.5); Neutrophils Absolute Auto 2.7 K/mm3 (1.3-6.7); Neutrophils Percent Auto 51.7 % (45.5-73.1); Platelet Count Result 273 k/mm3 (150-375); Red Blood Count 4.62 M/mm3 (4.6-6.20); Red Cell Distribution Width 12.5 % (11.5-14.5); White Blood Count 5.2 K/mm3 (4.5-10.0)
[2021-06-19 16:19] LABS: Alanine Aminotransferase 19 U/L (4-50); Albumin Level 4.4 g/dL (3.5-5.1); Alkaline Phosphatase 87 U/L (38-126); Anion Gap 5 mmol/L (8-16); Aspartate Amino Transferase 23 U/L (17-59); Bilirubin,Total 0.5 mg/dL (0.2-1.3); Blood Urea Nitrogen 20 mg/dL (9-20); Calcium 9.1 mg/dL (8.4-10.2); Carbon Dioxide 27 mmol/L (22-30); Chloride 105 mmol/L (98-107); Estimated CRCL calculation 74 ml/min; Estimated Glomerular Filt Rate > 60; Glucose 99 mg/dL (65-110); Lipase 95 U/L (23-300); Partial Thromboplastin Time 27.2 SECONDS (22.3-36.8); Potassium 3.7 mmol/L (3.4-5.0); Prothrombin Time 13.1 Seconds (11.1-14.7); Sodium 137 mmol/L (137-145)
[2021-06-19 16:30] LABS: Troponin I 0.013 ng/mL (0.000-0.034)
--- NOTE | 2021-06-19 18:12 | ED.CHESTPAIN ---
HPI - Chest Pain General Chief Complaint: Chest Pain Stated Complaint: CP Time Seen by Provider: 06/19/21 18:04 Source: patient and RN notes reviewed Mode of arrival: ambulatory Limitations: no limitations History of Present Illness HPI narrative: This is a 55 year old male who presents for evaluation of left anterior lower chest pain. He states he woke at 130 pm today with the pain. His pain has been constant and nonradiating. He also reports he woke up with vomit taste in his mouth. His pain may be worse with breathing. He denies cough, fever, chills, vomiting, or diarrhea. He may have been short of breath when walking into ER. He has not had similar pain in the past. He denies any urinary complaints. He rates his pain 3/10 currently. Related Data Home Medications Medication Instructions Recorded Confirmed ibuprofen 600 mg PO Q6H PRN 09/25/20 01/21/21 meclizine 25 mg PO TID PRN 09/25/20 01/21/21 atorvastatin 40 mg PO DAILY 12/25/20 01/21/21 fluoxetine 20 mg PO DAILY 12/25/20 01/21/21 Allergies Allergy/AdvReac Type Severity Reaction Status Date / Time atenolol AdvReac Hypotension Verified 01/21/21 14:50 Review of Systems Review of Systems: All systems reviewed & are unremarkable except as noted in HPI and below PMFSH Past Medical History Medical History Dizziness Dyslipidemia Seizures Family History Family History Father Heart disease Sibling Seizures Social History Social History Smoking status: Never smoker Alcohol intake: never Gender identity (if verbalized by the patient): Male Spiritual care concerns: No Exam Const: General: no acute distress and alert Orientation/consciousness: patient oriented x3 HENMT: Head: normocephalic and atraumatic Mouth: Yes Normal oral and palatal mucosa present, Yes lip normal, Yes oropharynx normal and Yes moist mucous membranes Eyes: EOM: EOMs intact bilaterally Chest: Chest palpation & inspection: normal inspection of the chest Resp: Effort & Inspection: normal respiratory effort and no retractions Auscultation: clear to auscultation bilaterally Cardio: Rate: regular rate Rhythm: regular rhythm Heart sounds: no murmurs GI: GI Palp: Yes Soft to palpation, Yes Tenderness to palpation present (GI) (epigastric, LUQ) and No Guarding due to palpation present (GI) Auscultation: normal bowel sounds Skin: General skin exam: normal color Rashes: no rashes Neuro: General: patient oriented x3, moves all extremities and CN's II-XI intact bilaterally Extrem: General: normal to inspection and no pedal edema Psych: Mental Status: mental status grossly normal Affect: normal affect Course Reevaluation(s) Reevaluation #1: His pain is atypical and be either GI or musculoskeletal. He is stable for discharge home at this time. He has been given return precautions. Date: 06/19/21 Time: 20:55 Vital Signs Vital signs: Vital Signs Temperature 97.0 F L 06/19/21 15:25 Pulse Rate 62 06/19/21 15:25 Respiratory Rate 14 06/19/21 15:25 Blood Pressure 135/78 06/19/21 15:25 Pulse Oximetry 98 06/19/21 15:25 Temperature 98.2 F 06/19/21 18:17 Pulse Rate 59 L 06/19/21 21:16 Respiratory Rate 16 06/19/21 21:16 Blood Pressure 152/84 H 06/19/21 21:16 Pulse Oximetry 97 06/19/21 21:16 MDM - Chest Pain Lab Data Attestation: I reviewed the patient's lab results. Result diagrams: 06/19/21 15:40 06/19/21 15:40 Labs: Lab Results 06/19/21 06/19/21 06/19/21 Range/Units 15:40 15:40 15:40 WBC 5.2 (4.5-10.0) K/mm3 RBC 4.62 (4.6-6.20) M/mm3 Hgb 14.5 (14.0-18.0) g/dL Hct 41.9 L (42.0-52.0) % MCV 90.7 (80-100) fl MCH 31.4 (26-34) pg MCHC 34.6 (32-36) g/dl RDW 12.5 (11.5-14.5) % Plt Count 273 (
[2021-06-19] MEDS: BELLADONNA ALK/PHENOB ELIX 10 ML, MAG HYDROX/ALUMINUM HYD/SIMETH 30 ML, LIDOCAINE HCL 2... PO (18:41)
[2021-06-19] MEDS: PANTOPRAZOLE SODIUM IV 40 MG VIAL IV PUSH (18:41)
[2021-06-19 19:06] LABS: Add Urine Microscopic? YES; Appearance Urine Clear (Clear); Bilirubin Urine Negative (Negative); Blood Urine Negative (Negative); Color Urine Yellow (Yellow); Glucose Urine UA Negative (Negative); Ketones Urine Negative (Negative); Leukocyte Esterase Ur Negative LEU/UL (Negative); Mucus Urine Heavy /lpf; Nitrate Urine Negative (Negative); Protein Urine 1+ mg/dL (Negative); Squamous Epithelial Cell Urine Rare /hpf (Few); WBC Urine 0-3 /hpf
[2021-06-19 19:08] LABS: Specific Grav Ur 1.034 (1.001-1.035)
[2021-06-19 19:25] LABS: Troponin I 0.014 ng/mL (0.000-0.034)
[2021-06-19 20:03] LABS: D Dimer 0.27 ug/mL (<0.48)
== END 2021-06-19 21:16 | disposition home or self-care (01) ==
PROVIDERS: Emergency Medicine; Emergency Provider General Practice; PCP Internal Medicine
DX: R07.9 Chest pain, unspecified (principal); R31.29 Other microscopic hematuria
CPT/HCPCS: 36415; 71046; 74018; 74176; 80053; 81001; 83690; 84484; 85025; 85380; 85610; 85730; 93005; 96374; 99284; A9270; C9113

== ENCOUNTER 2021-07-01 20:22 | Emergency (ER) | payer OTHER, SELFPAY ==
--- NOTE | ~2021-07-01 | CT_ITS ---
EXAMINATION: CT brain wo con DATE: 07/02/2021 02:43 INDICATION: Altered mental status. TECHNIQUE: Computed tomography (CT) of the head was performed without intravenous contrast. The mA wa s adjusted according to patient size. Iterative reconstruction technique was employed. The dose-lengt h product was 605.33 mGy-cm. COMPARISON: Head CT 01/13/2021, brain MRI 12/26/2020 FINDINGS: There is no intracranial hemorrhage, acute infarction, or abnormal intracranial mass lesion . The ventricles are normal in size. There is mild mucosal thickening in the ethmoid sinuses. Right m axillary sinus is smaller than the right with thickened and sclerotic tam. The orbits are normal. T he mastoid air cells are normal. IMPRESSION: 1. Normal brain. Reviewed, dictated and finalized at location B. RE WINDER HAND IMPRESSION: 1. Normal brain.
--- NOTE | ~2021-07-01 | XR_ITS ---
EXAMINATION: XR chest 1V EXAM DATE: 07/02/2021 03:20 INDICATION: ams, had seizure 07/01/21 still fells lightheaded and foggy . TECHNIQUE: Portable AP frontal chest x-ray was obtained. Comparison is made to prior examination from 06/19/2021. FINDINGS: The lungs are clear. There are no pleural effusions. The cardiomediastinal silhouette is within normal limits. There is no pneumothorax suspected. The bones and soft tissues are unremarkab le. IMPRESSION: No acute cardiopulmonary findings. Reviewed, dictated and finalized at location A. ING PRESS OPERATOR
[2021-07-01 20:31] VITALS: BP 124/87; PULSE 63; RESP 18; TEMP 36.4; O2SAT 98
[2021-07-02] VITALS (9 sets, daily range): BP systolic 104–131; BP diastolic 66–91; PULSE 52–78; RESP 12–22; O2SAT 98–100
--- NOTE | 2021-07-02 02:15 | ECG_ITS ---
Measurements Intervals [place] Rate: 60 P: 54 [place]: 177 QRS: 45 QRSD: 93 T: 38 QT: 403 QTc: 404 Interpretive Statements SINUS RHYTHM MINIMAL Q WAVES- INFERIOR LEADS BORDERLINE ECG Electronically Signed On 07-02-2021 5:42:18 BI CONSULTANT by Deondre Montoya D.O.
--- NOTE | 2021-07-02 02:15 | ED.SEIZURE ---
HPI - Seizure General Chief Complaint: Seizure Stated Complaint: seizure, head still isnt feeling right Time Seen by Provider: 07/02/21 02:09 Source: RN notes reviewed History of Present Illness HPI Narrative: Patient presents emergency department from home for seizure disorder. Patient states he has a history of seizure and is and is followed by Dr. Reese. He states he is on Keppra 1000 mg twice a day and has not missed any of his medication. He states that today he had a seizure approximately 3 PM states that since that time has continued to feel foggy . He states that that this symptom normally resolves but it has lasted longer than he normally does he denies any vision changes numbness or tingling in extremities chest pain shortness of breath abdominal pain nausea vomiting or any other symptoms. Related Data Home Medications Medication Instructions Recorded Confirmed ibuprofen 600 mg PO Q6H PRN 09/25/20 01/21/21 meclizine 25 mg PO TID PRN 09/25/20 01/21/21 atorvastatin 40 mg PO DAILY 12/25/20 01/21/21 fluoxetine 20 mg PO DAILY 12/25/20 01/21/21 Allergies Allergy/AdvReac Type Severity Reaction Status Date / Time atenolol AdvReac Hypotension Verified 07/01/21 20:33 Review of Systems Review of Systems: Gen.: Denies fevers or chills Eyes: Denies eye pain or visual change ENT: Denies congestion Respiratory: Denies shortness of breath or cough CV: Denies chest pain or palpitations GI: Denies abdominal pain nausea, emesis or diarrhea Musculoskeletal: Denies back pain or muscle pain Neuro: See HPI Skin: Denies rash Except as documented, all other systems reviewed and negative [facility] Past Medical History Medical History Dizziness Dyslipidemia Seizures Family History Family History Father Heart disease Sibling Seizures Social History Social History Smoking status: Never smoker Alcohol intake: never Gender identity (if verbalized by the patient): Male Spiritual care concerns: No Exam Narrative: APPEARANCE: No acute distress, nontoxic, resting in bed HEENT: Normocephalic, atraumatic, OMM, EYES: PERRL, EOMI NECK: Supple, nontender, full range of motion without pain, no meningismus RESPIRATORY: No respiratory distress, clear to auscultation bilaterally with no rhonchi wheezing or rales CARDIOVASCULAR: RRR s murmur ABDOMINAL: Soft, nontender, nondistended MUSCULOSKELETAL: Moves all extremities. No clubbing, cyanosis or edema. NEURO: A and O ?3, following commands, speech normal, no facial droop,muscle strength 5 out of 5 bilateral upper and lower extremities SKIN:: Warm, dry. Normal Color PSYCHIATRIC: Normal affect/mood Course Course Emergency Course: Patient was initially evaluated in triage room secondary to [facility] being at peak census. Patient states he is feeling better at this time Discussed with Dr. Reese presentation work-up. Agrees with plan for discharge recommends no change to medications at this time request patient follow-up as outpatient Discussed with patient results of workup and diagnosis. Discussed need for follow-up with primary care, proper use of medication, and reasons to return to the emergency department. Patient understands and agrees to current treatment plan Vital Signs Vital signs: Vital Signs Temperature 97.6 F 07/01/21 20:31 Pulse Rate 63 07/01/21 20:31 Respiratory Rate 18 07/01/21 20:31 Blood Pressure 124/87 07/01/21 20:31 Pulse Oximetry 98 07/01/21 20:31 Temperature 97.6 F 07/01/21 20:31 Pulse Rate 52 L 07/02/21 05:31 Respiratory Rate 14 07/02/21 05:31 Blood Pressure 116/81 07/02/21 05:31 Pulse Oximetry 98 07/02/21 05:31 MDM - Seizure Lab Data Result diagrams: 07/02/21 02:35 07/02/21 02:35 Labs: Lab Results 07/02/21
[2021-07-02 02:51] LABS: Basophils Absolute Auto 0.1 K/mm3 (0.0-0.1); Basophils Percent Auto 1.1 % (0.2-1.2); Eosinophils Absolute Auto 0.5 K/mm3 (0-0.3); Hemoglobin 15.1 g/dL (14.0-18.0); Immature Granulocyte Absolute 0.05 K/mm3 (0.00-0.031); Immature Granulocyte Percent A 0.7 % (0-0.5); Lymphocytes Absolute Auto 2.56 K/mm3 (0.9-3.2); Lymphocytes Percent Auto 36.5 % (18.3-44.2); Mean Corpuscular HGB Conc 34.3 g/dl (32-36); Mean Corpuscular Hemoglobin 31.4 pg (26-34); Mean Corpuscular Volume 91.5 fl (80-100); Mean Platelet Volume 10.5 fl (7.4-10.4); Monocytes Absolute Auto 0.7 K/mm3 (0.1-0.6); Monocytes Percent Auto 9.3 % (2.6-8.5); Neutrophils Absolute Auto 3.2 K/mm3 (1.3-6.7); Neutrophils Percent Auto 45.4 % (45.5-73.1); Platelet Count Result 223 k/mm3 (150-375); Red Blood Count 4.81 M/mm3 (4.6-6.20); Red Cell Distribution Width 12.5 % (11.5-14.5)
[2021-07-02 03:02] LABS: Alanine Aminotransferase 26 U/L (4-50); Albumin Level 4.3 g/dL (3.5-5.1); Alkaline Phosphatase 79 U/L (38-126); Anion Gap 5 mmol/L (8-16); Aspartate Amino Transferase 27 U/L (17-59); Bilirubin,Total 0.5 mg/dL (0.2-1.3); Blood Urea Nitrogen 18 mg/dL (9-20); Calcium 8.8 mg/dL (8.4-10.2); Carbon Dioxide 28 mmol/L (22-30); Chloride 104 mmol/L (98-107); Estimated CRCL calculation 73 ml/min; Estimated Glomerular Filt Rate > 60; Glucose 92 mg/dL (65-110); Potassium 3.9 mmol/L (3.4-5.0); Sodium 137 mmol/L (137-145)
[2021-07-02 06:30] LABS: Add Urine Microscopic? YES; Appearance Urine Clear (Clear); Bilirubin Urine Negative (Negative); Blood Urine Negative (Negative); Color Urine Yellow (Yellow); Glucose Urine UA Negative (Negative); Ketones Urine Negative (Negative); Leukocyte Esterase Ur Negative LEU/UL (Negative); Mucus Urine Few /lpf; Nitrate Urine Negative (Negative); Protein Urine Negative (Negative); Specific Grav Ur 1.026 (1.001-1.035); WBC Urine 0-3 /hpf
[2021-07-02] MEDS: levETIRAcetam 500 MG TABLET 1000 MG PO (07:16)
== END 2021-07-02 07:21 | disposition home or self-care (01) ==
PROVIDERS: Emergency Provider Emergency Medicine; PCP Internal Medicine
DX: G40.909 Epilepsy, unspecified, not intractable, without status epilepticus (principal); E78.5 Hyperlipidemia, unspecified; Z79.899 Other long term (current) drug therapy
CPT/HCPCS: 36415; 70450; 71045; 80053; 81001; 85025; 93005; 99284; A9270

== ENCOUNTER 2021-07-10 20:01 | Inpatient (IN) | payer OTHER, SELFPAY ==
[2021-07-10] VITALS (18 sets, daily range): BP systolic 100–122; BP diastolic 66–83; PULSE 50–74; RESP 13–28; TEMP 36.7; O2SAT 96–99
--- NOTE | ~2021-07-10 | XR_ITS ---
EXAMINATION: XR cervical spine 1V INDICATION: Neck pain TECHNIQUE: Single lateral view of the cervical spine is performed. COMPARISON: None available FINDINGS: The spine is only adequately visualized through the level of C6. The vertebral body heights and alignment are normal. There is mild loss of intervertebral disc space height at C5-6. The odonto id appears to be intact. IMPRESSION: 1. Mild lower cervical spondylosis, limited evaluation. Reviewed, dictated and finalized at location F. ER [employer]
--- NOTE | ~2021-07-10 | CT_ITS ---
EXAMINATION: CTA chest PE protocol DATE: 07/13/2021 12:46 FIELD PLACEMENT DIRECTOR INDICATION: Chest pain and syncope. TECHNIQUE: Computed tomographic angiography (CTA) of the chest was performed with 100 mL Omnipaque-35 0 intravenous contrast. The dose-length product was 229.51 mGy-cm. Maximum intensity projection 3D-re constructions of the aorta and other arteries were constructed by the technologist on a separate work station. Automated exposure control and iterative reconstruction technique were employed. COMPARISON: None. FINDINGS: Study is technically adequate without evidence for pulmonary embolism. No evidence for aort ic aneurysm or dissection. Heart size normal. Small hiatal hernia. No significant pleural or pericard ial effusion. The upper abdomen is unremarkable. Gallbladder is contracted. No endobronchial lesions. No focal airspace disease. No pneumothorax. No suspicious pulmonary nodules or masses. No acute osse ous abnormality. IMPRESSION: 1. No acute cardiopulmonary disease. No evidence for pulmonary embolism. Reviewed, dictated and finalized at location A. D PLACEMENT DIRECTOR
--- NOTE | ~2021-07-10 | CT_ITS ---
EXAMINATION: CT brain wo con EXAM DATE: 07/10/2021 20:50 INDICATION: Syncope TECHNIQUE: Spiral CT of the head was performed without contrast. Axial, coronal and sagittal images were reviewed. The dose-length product (DLP) for this examination was 605.33 mGy-cm. The exposure w as tailored according to patient size, and iterative reconstruction (ASIR) was used as additional dos e reduction technique. Comparison is made to prior examination from 06/12/2021. FINDINGS: There is no acute intraparenchymal hemorrhage. No evidence of intraparenchymal brain mass lesion. No evidence of acute infarction. There is no mass effect or midline shift. The ventricles are normal in size. There are no extra-axial collections. There are no acute calvarial fractures. T he orbits are unremarkable. Soft tissue is unremarkable. The visualized sinuses and mastoid air josephine ls are well aerated. IMPRESSION: 1. No acute intracranial findings. Reviewed, dictated and finalized at location A. DUSTER HELPER
--- NOTE | ~2021-07-10 | XR_ITS ---
EXAMINATION: XR chest 1V portable INDICATION: New cough TECHNIQUE: Portable AP chest at 1354 hours COMPARISON: 07/02/2021 FINDINGS: The lungs are free of acute opacities. There is no pleural effusion or pneumothorax. The ca rdiomediastinal silhouette is normal. IMPRESSION: 1. No acute cardiopulmonary abnormality. Reviewed, dictated and finalized at location F. STEWARD
--- NOTE | 2021-07-10 20:13 | ECG_ITS ---
Measurements Intervals [place] Rate: 65 P: 43 [place]: 179 QRS: 55 QRSD: 86 T: 38 QT: 388 QTc: 404 Interpretive Statements SINUS RHYTHM WITH SINUS ARRHYTHMIA BASELINE WANDER- I, II, AVR, AVL, AVF NORMAL ECG Electronically Signed On 07-11-2021 6:12:13 DIGITAL PHOTOGRAPHIC PRINTER by Deondre Montoya D.O.
[2021-07-10 20:24] LABS: Basophils Absolute Auto 0.1 K/mm3 (0.0-0.1); Basophils Percent Auto 0.7 % (0.2-1.2); Eosinophils Absolute Auto 0.2 K/mm3 (0-0.3); Eosinophils Percent Auto 3.5 % (0-4.4); Hematocrit 44.4 % (42.0-52.0); Hemoglobin 14.9 g/dL (14.0-18.0); Immature Granulocyte Absolute 0.02 K/mm3 (0.00-0.031); Immature Granulocyte Percent A 0.3 % (0-0.5); Lymphocytes Absolute Auto 1.64 K/mm3 (0.9-3.2); Lymphocytes Percent Auto 23.7 % (18.3-44.2); Mean Corpuscular HGB Conc 33.6 g/dl (32-36); Mean Corpuscular Hemoglobin 31.2 pg (26-34); Mean Corpuscular Volume 92.9 fl (80-100); Mean Platelet Volume 10.3 fl (7.4-10.4); Monocytes Absolute Auto 0.6 K/mm3 (0.1-0.6); Neutrophils Absolute Auto 4.4 K/mm3 (1.3-6.7); Neutrophils Percent Auto 62.8 % (45.5-73.1); Platelet Count Result 199 k/mm3 (150-375); Red Blood Count 4.78 M/mm3 (4.6-6.20); Red Cell Distribution Width 12.5 % (11.5-14.5); White Blood Count 6.9 K/mm3 (4.5-10.0)
--- NOTE | 2021-07-10 20:40 | ED.CHESTPAIN ---
HPI - Chest Pain General Chief Complaint: Syncope Stated Complaint: L sided chest pain, syncope Time Seen by Provider: 07/10/21 20:26 Source: patient Mode of arrival: ambulatory Limitations: no limitations History of Present Illness HPI narrative: Patient is a 46-year-old male complaining of chest pain, midsternal, tightness, was 8 out of 10, currently now down to 1 out of 10, nonradiating accompanied by syncopal episode prior to arrival. Patient states that he has a history of seizures which is usually triggered by pain. Patient denies any shortness of breath, abdominal pain, nausea, vomiting, diaphoresis, fever or chills. Related Data Home Medications Medication Instructions Recorded Confirmed meclizine 25 mg PO TID PRN 09/25/20 01/21/21 atorvastatin 40 mg PO DAILY 12/25/20 01/21/21 fluoxetine 20 mg PO DAILY 12/25/20 01/21/21 Allergies Allergy/AdvReac Type Severity Reaction Status Date / Time atenolol AdvReac Hypotension Verified 07/10/21 20:14 Review of Systems Review of Systems: All systems reviewed & are unremarkable except as noted in HPI and below Constitutional: Constitutional: Denies body ache(s), Denies chills, Denies excessive sweating, Denies fatigue, Denies fever(s), Denies headache(s), Denies lethargy, Denies malaise, Denies weakness and Denies weight loss Eyes: Eyes: Denies blurry vision, Denies change in vision and Denies loss of vision ENT: Denies dizziness, Denies ear discharge, Denies headache(s), Denies lip swelling, Denies epistaxis, Denies nasal congestion, Denies neck pain, Denies throat swelling and Denies tongue swelling Cardiovascular: Cardiovascular: Denies diaphoresis, Denies rapid heart rate, Denies edema, Denies irregular heart rhythm, Denies lightheadedness, Denies palpitations, Denies dyspnea and Denies dyspnea on exertion Respiratory: Respiratory: Denies chest congestion, Denies cough, Denies hemoptysis, Denies dyspnea and Denies dyspnea on exertion Gastrointestinal: Gastrointestinal: Denies abdominal pain, Denies melena, Denies hematochezia, Denies diarrhea, Denies nausea, Denies vomiting and Denies hematemesis Musculoskeletal: Musculoskeletal: Denies abnormal gait, Denies deformity, Denies joint swelling, Denies limited range of motion, Denies neck pain and Denies numbness Neurologic: Denies Abnormal speech present, Denies abnormal gait, Denies confusion, Denies dizziness, Denies headache(s), Denies focal weakness, Denies loss of vision, Denies numbness, Denies Other visual disturbances, Denies Sensory deficit (Neuro) and Denies weakness Psychiatric: Psychiatric: Denies confusion, Denies depression, Denies auditory hallucinations, Denies homicidal ideation and Denies suicidal ideation Endocrine: Endocrine: Denies cold intolerance, Denies excessive sweating, Denies fatigue, Denies heat intolerance and Denies palpitations Hematologic/Lymphatic: Hematologic/Lymphatic: Denies easy bleeding and Denies easy bruising Allergic/Immunologic: Allergic/Immunologic: Denies lip swelling, Denies throat swelling and Denies tongue swelling PMFSH Past Medical History Medical History Dizziness Dyslipidemia Seizures Family History Family History Father Heart disease Sibling Seizures Social History Social History Smoking status: Never smoker Alcohol intake: never Gender identity (if verbalized by the patient): Male Spiritual care concerns: No Exam Const: General: cooperative, healthy appearing, comfortable, no acute distress, well developed, alert and awake; No confusion Orientation/consciousness: oriented to person, oriented to place, oriented to time, patient oriented x3 and No confusion Limitations: no limitations HENMT: Head: normal to inspection, normocephalic and atraumatic Ears: hearing grossly normal bilatera
[2021-07-10 20:44] LABS: Alanine Aminotransferase 25 U/L (4-50); Albumin Level 4.6 g/dL (3.5-5.1); Alkaline Phosphatase 80 U/L (38-126); Anion Gap 9 mmol/L (8-16); Aspartate Amino Transferase 25 U/L (17-59); Bilirubin,Total 0.6 mg/dL (0.2-1.3); Blood Urea Nitrogen 25 mg/dL (9-20); Calcium 9.3 mg/dL (8.4-10.2); Carbon Dioxide 28 mmol/L (22-30); Chloride 106 mmol/L (98-107); Estimated CRCL calculation 67 ml/min; Estimated Glomerular Filt Rate > 60; Glucose 94 mg/dL (65-110); Potassium 3.9 mmol/L (3.4-5.0); Sodium 143 mmol/L (137-145)
[2021-07-10] MEDS: LACTATED RINGERS 1,000 ML 999 ML IV CONT (21:05)
[2021-07-10 22:08] LABS: Troponin I 0.014 ng/mL (0.000-0.034)
[2021-07-11] VITALS (12 sets, daily range): BP systolic 109–130; BP diastolic 60–88; PULSE 55–76; RESP 14–18; TEMP 36.8–37.2; O2SAT 96–98; BMI 25.0
--- NOTE | 2021-07-11 | ECHO_ITS ---
Patient Info Name: Venu Garcia Age: 56 years : 1965 Gender: Male Ht: 66 in Wt: 155 lbs BSA: 1.82 m2 HR: 56 bpm BP: 114 / 64 mmHg Technical Quality: Good Exam Date: 07/11/2021 11:07 AM Exam Location: [facility] Pulmonary Exam Room: [facility] Patient Status: Outpatient Admit Date: 07/10/2021 Staff Ordering Physician: Timur Garvey-Kassidy Facility Service Associate: Ananya Matthew RDCS Attending Provider: Primo Rick MD Referring Physician: Guru ROBINS; Exam Type: CA echo doppler color flow Study Info Indications - SYNCOPAL EPISODE Complete two-dimensional, color flow and Doppler transthoracic echocardiogram is performed. Summary 1. Complete two-dimensional, color flow and Doppler transthoracic echocardiogram is performed. 2. Left ventricular chamber dimension is normal. 3. Left ventricular systolic function is normal, estimated at 60-65%. 4. The left ventricular diastolic function is grade II diastolic dysfunction. 5. E/e' 7 is not elevated. 6. No pulmonary hypertension, estimated pulmonary arterial systolic pressure is 20 mmHg. 7. There is trace pulmonic regurgitation. Left Ventricle E/e' 7 is not elevated. Left ventricular chamber dimension is normal. Left ventricular systolic function is normal, estimated at 60-65%. The left ventricular diastolic function is grade II diastolic dysfunction. Right Ventricle Right ventricular chamber dimension is normal. Right ventricular systolic function is normal. Left Atria Left atrial chamber dimension is normal. Right Atria Right atrial chamber dimension is normal. Aortic Valve The aortic valve is trileaflet. There is no aortic valve stenosis. There is no aortic valve regurgitation. Pulmonic Valve There is trace pulmonic regurgitation. Mitral Valve There is no mitral valve stenosis. There is no mitral valve regurgitation. Tricuspid Valve There is no tricuspid valve regurgitation. No pulmonary hypertension, estimated pulmonary arterial systolic pressure is 20 mmHg. Pericardium/Pleural There is no pericardial effusion. Inferior Vena Cava Normal inferior vena cava with >50% collapse upon inspiration consistent with normal right atrial pressure, 5 mmHg. Aorta The aortic root size at the sinus of Valsalva is normal. Left Ventricular Outflow Tract Name Value Normal LVOT 2D LVOT Diameter 2.1 cm LVOT Doppler LVOT Peak Gradient 3 mmHg LVOT Mean Gradient 2 mmHg LVOT VTI 19 cm LVOT VTI/AV VTI Ratio 0.8 LVOT Stroke Volume 62 ml LVOT CO 12.2 l/min LVOT CI 6.7 l/min/m2 Pulmonic Valve Name Value Normal PV Doppler PV Peak Gradient 3 mmHg
--- NOTE | 2021-07-11 00:33 | PM.IMHP ---
H&P: HPI History of Present Illness Date/Time: 07/11/21 00:33 Chief Complaint: Syncope Narrative: This is a 56-year-old male with past medical history significant for seizure disorder, sleep movement disorder, GERD, dyslipidemia. Patient presented to the emergency room after he had retrosternal chest pain with radiation to the neck and shoulder on the left side with syncopal episode. Patient has been his usual state of health he denies any chest pain with activity or at rest, no cough, no sputum production, no nausea, no vomiting, no diarrhea, no shortness of breath, no PND, no orthopnea, no leg swelling, no calf pain ,no dizziness,no lightheadedness,no vision changes. Patient described pain as burning. Denies having this kind of pain before. At the time of my visit pain had resolved. Preliminary workup was essentially nonrevealing. The patient is been admitted for further evaluation management and treatment. Review of Systems Review of Systems: Chest pain retrosternal, syncopal episode. Constitutional: Constitutional: Denies chills, Denies fatigue, Denies fever(s), Denies lethargy, Denies malaise, Denies night sweats, Denies poor appetite and Denies weakness Eyes: Eyes: Denies change in vision ENT: Denies dysphagia, Denies vertigo, Denies dizziness, Denies nasal congestion, Denies nasal discharge and Denies nasal obstruction Cardiovascular: Cardiovascular: Reports chest pain, Denies chest pain at rest, Denies chest pain with activity, Reports syncope, Denies pedal edema, Denies claudication, Denies leg edema, Denies lightheadedness, Reports radiating jaw, neck or arm pain, Denies palpitations, Denies dyspnea on exertion, Denies orthopnea and Denies paroxysmal nocturnal dyspnea Respiratory: Respiratory: Denies cough and Denies dyspnea Gastrointestinal: Gastrointestinal: Denies abdominal pain, Reports heartburn, Denies diarrhea, Denies nausea and Denies vomiting Genitourinary: Genitourinary: Denies dysuria Musculoskeletal: Musculoskeletal: Denies arthralgias and Denies joint swelling Integumentary/Breasts: Skin/Breast: Denies rash Neurologic: Denies focal weakness and Denies Sensory deficit (Neuro) Psychiatric: Psychiatric: Reports no additional psychiatric complaints and Reports as per HPI Endocrine: Endocrine: Denies cold intolerance, Denies excessive sweating, Denies flushing, Denies heat intolerance, Denies polyphagia, Denies polydipsia, Denies polyuria and Denies palpitations Hematologic/Lymphatic: Hematologic/Lymphatic: Reports no additional hematologic/lymphatic complaints and Reports as per HPI Allergic/Immunologic: Allergic/Immunologic: Reports no additional allergic/immunologic complaints and Reports as per HPI PMFSH Past Medical History Medical History Dizziness Dyslipidemia Seizures Family History Family History Father Heart disease Sibling Seizures Social History Social History Smoking status: Never smoker Alcohol intake: never Gender identity (if verbalized by the patient): Male Spiritual care concerns: No Meds Home Medications and Allergies Home Medications Medication Instructions Recorded Confirmed Type meclizine 25 mg PO TID PRN 09/25/20 01/21/21 History atorvastatin 40 mg PO DAILY 12/25/20 01/21/21 History fluoxetine 20 mg PO DAILY 12/25/20 01/21/21 History levetiracetam 1,000 mg tablet 1,000 mg PO BID #60 tablet 01/31/21 Rx omeprazole 20 mg PO BID #20 cap 06/19/21 Rx Allergies Allergy/AdvReac Type Severity Reaction Status Date / Time atenolol AdvReac Hypotension Verified 07/10/21 20:14 Vital Signs Vital Signs - 24 hr 07/10/21 20:08 07/10/21 20:09 07/10/21 20:26 Temperature 98.0 F Pulse Rate 74 64 Respiratory Rate 18 16 Blood Pressure 121/80 Pulse Oximetry 97 96 96 07/10/21 20:30 01
[2021-07-11 01:30] LABS: Troponin I 0.013 ng/mL (0.000-0.034)
--- NOTE | 2021-07-11 06:11 | PC.NURSE ---
0515 pt arrived from the ed to room 328 with a dx of chest pain and syncope. Pt awake, A/O x3. Denies chest pain and discomfort . Pt encouraged to inform nurse if need assist with anything and plan of care discussed, verbalize understanding.
[2021-07-11 07:51] LABS: Troponin I 0.016 ng/mL (0.000-0.034)
[2021-07-11] MEDS: PANTOPRAZOLE SODIUM IV 40 MG VIAL IV PUSH (08:40)
--- NOTE | 2021-07-11 09:46 | WPDPN ---
Progress Note: A&P Assessment and Plan (1) Chest pain in adult: Code(s): R07.9 - Chest pain, unspecified Status: Acute Assessment and Plan: EKG sinus rhythm with a heart rate of 60 Lexiscan stress test in a.m. Supportive care Continuous telemetry ECG reviewed trop 0.014>0.013>0.016 Cardiology consulted (2) Syncope: Qualifiers: Syncope type: unspecified Qualified Code(s): R55 - Syncope and collapse Code(s): R55 - Syncope and collapse Status: Acute Assessment and Plan: Cardiology consulted Orthostatics blood pressure readings ordered Echo pending Continue tele Continue to monitor (3) Seizures: Code(s): R56.9 - Unspecified convulsions Status: Acute Assessment and Plan: Continue levetiracetam Follow-up in outpatient setting Followed by Dr. Tim De Jesus consulted (4) KAROL (obstructive sleep apnea): Code(s): G47.33 - Obstructive sleep apnea (adult) (pediatric) Status: Acute Assessment and Plan: CPAP at nighttime Subjective Date/time seen: 07/11/21 09:46 patient notes that he has not had any shortness of breath, or syncopal episode since his admission. Patient denies sob, palpitation, diarrhea, constipation, lightheadness, headache, dizziness or chills and fevers. He has no complaints at this time. Review of Systems Review of Systems: A 14 organ system Review of Systems was performed and pertinent positives included in the HPI, otherwise Exam Narrative: GENERAL: This is a well-nourished, well-developed patient, in no apparent distress. HEAD: normocephalic, atraumatic. EYES: PERRL. Sclera clear/white. Vision is grossly intact. EARS: External ears normal, auditory canals clear and without drainage, TMs normal without perforation. Hearing grossly intact. NOSE: External nose normal with no obvious nasal discharge, nares without redness, no rhinorrhea. THROAT: Mucous membranes moist, posterior pharynx clear. NECK: Neck supple, non-tender without lymphadenopathy, masses or thyromegaly. CARDIOVASCULAR: Regular rate and rhythm without murmurs, gallops, or rubs. RESPIRATORY: Clear to auscultation. Breath sounds equal bilaterally. No wheezes, rales, or rhonchi. GASTROINTESTINAL: Abdomen soft, non-tender, nondistended. Bowel sounds are active. No hepato-splenomegaly, or palpable masses. No guarding. SKIN: warm, intact with no suspicious lesions or rash, good texture and turgor. NEURO: awake, alert, and oriented to person, place and time. There were no obvious focal neurologic abnormalities. Steady gait EXTREMITIES: Normal range of motion. No edema. No calf tenderness. Negative Homans sign bilaterally. BACK: Nontender without deformity or crepitance. No flank tenderness. Objective Data Vital Signs Vital Signs: Vital Signs - 24 hr 07/10/21 20:08 07/10/21 20:09 07/10/21 20:26 Temperature 98.0 F Pulse Rate 74 64 Respiratory Rate 18 16 Blood Pressure 121/80 Pulse Oximetry 97 96 96 07/10/21 20:30 07/10/21 20:31 07/10/21 20:54 Temperature Pulse Rate 60 65 62 Respiratory Rate 13 13 14 Blood Pressure 122/83 Pulse Oximetry 96 96 97 07/10/21 20:56 07/10/21 21:00 07/10/21 21:01 Temperature Pulse Rate 57 L 59 L 60 Respiratory Rate 16 14 16 Blood Pressure 105/76 122/79 Pulse Oximetry 97 97 96 07/10/21 21:15 07/10/21 21:17 07/10/21 21:29 Temperature Pulse Rate 51 L 51 L 57 L Respiratory Rate 14 14 14 Blood Pressure 106/80 100/66 Pulse Oximetry 97 97 99 07/10/21 21:30 07/10/21 21:31 07/10/21 21:45 Temperature Pulse Rate 51 L 50 L 55 L Respiratory Rate 28 H 21 H 17 Blood Pressure 106/78 Pulse Oximetry 97 97 97 07/10/21 21:47 07/10/21 22:03 07/10/21 23:14 Temperature Pulse Rate 55 L 53 L 70 Respiratory Rate 15 15 Blood Pressure 107/71 111/74 Pulse Oximetry 96 98 07/11/21 00:46 07/11/21 02:58 07/11/21 04:15 Temperature Pulse Rate 59 L 65 56 L
--- NOTE | 2021-07-11 12:57 | PM.CNCAR ---
Assessment and Plan Assessment and plan (1) Chest pain in adult: Code(s): R07.9 - Chest pain, unspecified Status: Acute Assessment and Plan: Non-Cardiac. Probably cervical radiculopathy or costochondritis. Echo shows no wall motion abnormalities with normal EF. Troponin are unremarkable. May d/c home from cardiology standpoint and f/u with me in 2 weeks. (2) Syncope: Qualifiers: Syncope type: unspecified Qualified Code(s): R55 - Syncope and collapse Code(s): R55 - Syncope and collapse Status: Acute Assessment and Plan: Probably due to vasovagal episode induced by chest pain. Telemetry is normal. (3) Dyslipidemia: Code(s): E78.5 - Hyperlipidemia, unspecified Status: Acute Assessment and Plan: On Atorvastatin. History of Present Illness History of Present Illness Consult date/time: 07/11/21 12:57 Reason for consult: CP and syncope. 56 yr old man admitted for cp and syncope. He has a history of Seizures, GERD and dyslipidemia. Reports that he was at work and walking when he had very sharp chest pain radiating from left rib to his head. He sat down immediately and passed out. The next thing he knows EMS was present. He can walk 1/2 mile without any problems. No prior cp or syncope. No recurrence of symptoms and no dizziness. He drinks plenty of water about a case of water bottles a week. EKG: Sinus rhythm. CT brain is normal. Echo is OK with EF 60-65%, grade II diastolic dysfunction (E/e' 7), trace PI. Troponin negative. CBC, CMP are normal. Reason For Visit: Chest Pain, Syncope Review of Systems Review of Systems: All systems reviewed & are unremarkable except as noted in HPI and below Constitutional: Constitutional: Reports as per HPI, Denies chills and Denies fever(s) Cardiovascular: Cardiovascular: Reports as per HPI, Reports chest pain, Denies irregular heart rhythm, Denies leg edema and Denies lightheadedness Respiratory: Respiratory: Reports as per HPI and Denies dyspnea Gastrointestinal: Gastrointestinal: Reports as per HPI and Denies abdominal pain Genitourinary: Genitourinary: Reports as per HPI and Denies dysuria Musculoskeletal: Musculoskeletal: Reports as per HPI Neurologic: Reports as per HPI, Denies dizziness and Reports syncope PMFSH Past Medical History Medical History Dizziness Dyslipidemia Seizures Family History Family History Father Heart disease Sibling Seizures Social History Social History Smoking status: Never smoker Second hand tobacco smoke exposure: No Alcohol intake: never Substance use type: does not use Gender identity (if verbalized by the patient): Male Spiritual care concerns: No Meds Home Medications and Allergies Home Medications Medication Instructions Recorded Confirmed Type meclizine 25 mg PO TID PRN 09/25/20 07/11/21 History atorvastatin 40 mg PO DAILY 12/25/20 07/11/21 History fluoxetine 20 mg PO DAILY 12/25/20 07/11/21 History levetiracetam 1,000 mg tablet 1,000 mg PO BID #60 tablet 01/31/21 07/11/21 Rx omeprazole 20 mg PO BID #20 cap 06/19/21 07/11/21 Rx Allergies Allergy/AdvReac Type Severity Reaction Status Date / Time atenolol AdvReac Hypotension Verified 07/10/21 20:14 Vital Signs Vital Signs - 24 hr 07/10/21 20:08 07/10/21 20:09 07/10/21 20:26 Temperature 98.0 F Pulse Rate 74 64 Respiratory Rate 18 16 Blood Pressure 121/80 Pulse Oximetry 97 96 96 07/10/21 20:30 07/10/21 20:31 07/10/21 20:54 Temperature Pulse Rate 60 65 62 Respiratory Rate 13 13 14 Blood Pressure 122/83 Pulse Oximetry 96 96 97 07/10/21 20:56 07/10/21 21:00 07/10/21 21:01 Temperature Pulse Rate 57 L 59 L 60 Respiratory Rate 16 14 16 Blood Pressure 105/76 122/79 Pulse Oximetry 97 97 96
[2021-07-11] MEDS: levETIRAcetam 500 MG TABLET 1000 MG PO (20:30)
[2021-07-12] VITALS (7 sets, daily range): BP systolic 97–133; BP diastolic 59–75; PULSE 66–83; RESP 16–20; TEMP 36.8–37.5; O2SAT 96–98
[2021-07-12 09:08] LABS: Hematocrit 41.9 % (42.0-52.0); Hemoglobin 14.4 g/dL (14.0-18.0); Mean Corpuscular HGB Conc 34.4 g/dl (32-36); Mean Corpuscular Hemoglobin 31.6 pg (26-34); Mean Corpuscular Volume 91.9 fl (80-100); Mean Platelet Volume 10.6 fl (7.4-10.4); Platelet Count Result 185 k/mm3 (150-375); Red Blood Count 4.56 M/mm3 (4.6-6.20); Red Cell Distribution Width 12.3 % (11.5-14.5)
[2021-07-12 09:19] LABS: Alanine Aminotransferase 20 U/L (4-50); Alkaline Phosphatase 73 U/L (38-126); Anion Gap 7 mmol/L (8-16); Aspartate Amino Transferase 21 U/L (17-59); Bilirubin,Total 0.6 mg/dL (0.2-1.3); Blood Urea Nitrogen 19 mg/dL (9-20); Carbon Dioxide 26 mmol/L (22-30); Chloride 104 mmol/L (98-107); Estimated CRCL calculation 61 ml/min; Estimated Glomerular Filt Rate > 60; Glucose 99 mg/dL (65-110); Magnesium 2.2 mg/dL (1.6-2.3); Potassium 3.5 mmol/L (3.4-5.0); Sodium 137 mmol/L (137-145)
[2021-07-12] MEDS: levETIRAcetam 500 MG TABLET 1000 MG PO ×2 (09:38→21:17)
[2021-07-12] MEDS: FLUoxetine HCL 20 MG CAPSULE PO (09:38)
[2021-07-12] MEDS: ATORVASTATIN 40 MG TABLET PO (09:38)
[2021-07-12 13:11] LABS: EDCOVIDSCREEN Positive (Negative)
--- NOTE | 2021-07-12 14:17 | PM.IMPN ---
Progress Note: A&P Assessment and Plan (1) Chest pain in adult: Code(s): R07.9 - Chest pain, unspecified Status: Acute Assessment and Plan: EKG sinus rhythm with a heart rate of 60 echocardiogram reviewed Supportive care Continuous telemetry ECG reviewed trop 0.014>0.013>0.016 Cardiology consulted and plans for outpatient follow-up Will get cervical spine x-ray to see if the pain is coming from his neck (2) Syncope: Qualifiers: Syncope type: unspecified Qualified Code(s): R55 - Syncope and collapse Code(s): R55 - Syncope and collapse Status: Acute Assessment and Plan: Cardiology consulted Orthostatics blood pressure readings ordered Echo reviewed Continue tele Continue to monitor (3) Seizures: Code(s): R56.9 - Unspecified convulsions Status: Acute Assessment and Plan: Continue levetiracetam Follow-up in outpatient setting Followed by Dr. Tim De Jesus consulted, awaiting his recommendations Does not look like it is related to a seizure (4) KAROL (obstructive sleep apnea): Code(s): G47.33 - Obstructive sleep apnea (adult) (pediatric) Status: Acute Assessment and Plan: CPAP at nighttime (5) SARS-CoV-2 positive: Code(s): U07.1 - COVID-19 Status: Acute Assessment and Plan: start droplet isolation on room air in no other additional treatment needed will continue to monitor Ordered chest x-ray (6) Cough: Code(s): R05.9 - Cough, unspecified Status: Acute Assessment and Plan: COVID swab which came back positive will get PCR Depending on chest x-ray will see if we need to rule out PE due to syncope Subjective Date/time seen: 07/12/21 14:17 Interval history: no overnight events. Reports some cough which is been ongoing for the past few days. Chest pain is on left lateral side was radiated to his neck he has not had that kind of pain in the past. Review of Systems Review of Systems: All systems reviewed & are unremarkable except as noted in HPI and below ( HPI) Exam Narrative: GENERAL: This is a well-nourished, well-developed patient, in no apparent distress. HEAD: normocephalic, atraumatic. EYES: PERRL. Sclera clear/white. Vision is grossly intact. THROAT: Mucous membranes moist, posterior pharynx clear. NECK: Neck supple, non-tender without lymphadenopathy, masses or thyromegaly. CARDIOVASCULAR: Regular rate and rhythm without murmurs, gallops, or rubs. RESPIRATORY: Clear to auscultation. Breath sounds equal bilaterally. No wheezes, rales, or rhonchi. GASTROINTESTINAL: Abdomen soft, non-tender, nondistended. Bowel sounds are active. No hepato-splenomegaly, or palpable masses. No guarding. SKIN: warm, intact with no suspicious lesions or rash, good texture and turgor. NEURO: awake, alert, and oriented to person, place and time. There were no obvious focal neurologic abnormalities. Steady gait EXTREMITIES: Normal range of motion. No edema. No calf tenderness. Negative Homans sign bilaterally. BACK: Nontender without deformity or crepitance. No flank tenderness. Objective Data Vital Signs Vital Signs: Vital Signs - 24 hr 07/11/21 16:00 07/11/21 17:00 07/11/21 17:01 Temperature Pulse Rate 66 Respiratory Rate Blood Pressure 113/60 118/75 Pulse Oximetry 07/11/21 17:02 07/11/21 22:00 07/12/21 00:00 Temperature 98.3 F Pulse Rate 68 73 Respiratory Rate 18 Blood Pressure 130/78 109/66 Pulse Oximetry 96 07/12/21 04:00 07/12/21 06:00 Temperature 99.1 F Pulse Rate 77 74 Respiratory Rate 18 Blood Pressure 133/75 Pulse Oximetry 96 Intake/Output Intake/Output: Intake & Output 07/09/21 07/10/21 07/11/21 07/12/21 23:59 23:59 23:59 23:59 Intake Total 1000 740 720 Balance 1000 740 720 Meds/Results Medications: Active Medications Generic Name Dose Route Start Last Admin Trade Name Freq PRN Reason Stop
[2021-07-12 15:07] LABS: SARS-CoV-2 RNA PCR Positive
[2021-07-12] MEDS: PANTOPRAZOLE 40 MG TABLET PO (21:17)
[2021-07-13] VITALS (11 sets, daily range): BP systolic 104–137; BP diastolic 63–83; PULSE 63–83; RESP 14–20; TEMP 36.5–37.1; O2SAT 91–98
[2021-07-13] MEDS: PANTOPRAZOLE 40 MG TABLET PO ×2 (10:00→22:44)
[2021-07-13] MEDS: FLUoxetine HCL 20 MG CAPSULE PO (10:00)
[2021-07-13] MEDS: levETIRAcetam 500 MG TABLET 1000 MG PO ×2 (10:00→22:44)
[2021-07-13] MEDS: ATORVASTATIN 40 MG TABLET PO (10:00)
--- NOTE | 2021-07-13 11:00 | PM.IMPN ---
Progress Note: A&P Assessment and Plan (1) Chest pain in adult: Code(s): R07.9 - Chest pain, unspecified Status: Acute Assessment and Plan: EKG sinus rhythm with a heart rate of 60-70s echocardiogram reviewed Supportive care Continuous telemetry ECG reviewed trop 0.014>0.013>0.016 TSH 1.13, Mag 2.2 Cardiology consulted and plans for outpatient follow-up Cervical spine x-ray done yesterday to see if the pain is coming from his neck: vertebral body heights and alignment are normal. There is mild loss of intervertebral disc space height at C5-6. The odontoid appears to be intact. Headache and pain with cough - likely due to COVID and/or its hypoxia or Neuro effects. (2) Syncope: Qualifiers: Syncope type: unspecified Qualified Code(s): R55 - Syncope and collapse Code(s): R55 - Syncope and collapse Status: Acute Assessment and Plan: Cardiology consulted Orthostatics blood pressure readings not completed yet today Echo reviewed, 3 troponins were negative. remains on cardiac telemetry monitoring. Continue to monitor no syncope noted today (3) Seizures: Code(s): R56.9 - Unspecified convulsions Status: Acute Assessment and Plan: Continue levetiracetam Follow-up in outpatient setting Followed by Dr. Tim De Jesus consulted, awaiting his recommendations Does not look like it is related to a seizure May be related to COVID hypoxia (4) KAROL (obstructive sleep apnea): Code(s): G47.33 - Obstructive sleep apnea (adult) (pediatric) Status: Acute Assessment and Plan: CPAP at nighttime continue home settings (5) SARS-CoV-2 positive: Code(s): U07.1 - COVID-19 Status: Acute Assessment and Plan: start droplet isolation on room air in no other additional treatment needed will continue to monitor CXR and CT PE scan done, no PE. COVID + started on extra-strength Tylenol productive cough. Ordered sputum cultures, Remdesvimir and Dexamethasone, Albuterol and Mucinex. complaining of rhinorrhea, ordered Flonase. Consider CXR for morning. Encouraged him to get out of bed for his meals. incentive spirometer ordered. (6) Cough: Code(s): R05.9 - Cough, unspecified Status: Acute Assessment and Plan: Continues to elicit coughing with deep breathing, but no syncope today. ER COVID swab which came back positive SARS PCR result was positive, CRP mildly elevated checking other inflammatory markers in the morning CT PE scan showed no acute cardiopulmonary disease. No evidence for pulmonary embolism. Subjective Date/time seen: 07/13/21 11:00 Interval history: Venu was resting in bed when I went to see him in his room. He states that he feels much worse today. He has a headache that extra-strength Tylenol did not resolve. He continues to have a productive cough. Ordered sputum cultures. His lung sounds are diminished and coarse throughout, ordered Remdesvimir and Dexamethasone, Albuterol and Mucinex. He is also complaining of rhinorrhea, ordered Flonase. Consider CXR for morning. Encouraged him to get out of bed for his meals. He admitted to poor appetite, but denies nausea and vomiting at this time. He denies feeling constipated or having diarrhea. He denies chest pain or shortness of breath. His 3 troponins were negative. He remains on cardiac telemetry monitoring. Review of Systems Review of Systems: All systems reviewed & are unremarkable except as noted in HPI and below ( HPI) Constitutional: Constitutional: Denies chills, Reports difficulty sleeping (He is finding it very hard to fall asleep and get any rest), Denies excessive sweating, Reports fatigue, Denies fever(s), Reports headache(s), Denies lethargy, Reports malaise, Denies night sweats, Denies poor appetite and Reports weakness Eyes: Eyes: Denies change in vision ENT: Denies dysphagia, Denies vertigo, Denies dizzine
[2021-07-13] MEDS: guaiFENesin 12 HR 600 MG TABCR 1200 MG PO ×2 (11:18→22:45)
[2021-07-13] MEDS: ACETAMINOPHEN 500 MG TABLET 1000 MG PO (11:18)
[2021-07-13] MEDS: PHENOL/SOD PHENO SPRAY CHERRY (*BKC) 1 SPRAY MUCOUS MEM (11:19)
[2021-07-13 11:30] LABS: Basophils Percent Auto 0.5 % (0.2-1.2); Eosinophils Absolute Auto 0.2 K/mm3 (0-0.3); Hematocrit 43.7 % (42.0-52.0); Hemoglobin 15.1 g/dL (14.0-18.0); Immature Granulocyte Absolute 0.02 K/mm3 (0.00-0.031); Immature Granulocyte Percent A 0.3 % (0-0.5); Lymphocytes Percent Auto 16.4 % (18.3-44.2); Mean Corpuscular HGB Conc 34.6 g/dl (32-36); Mean Corpuscular Hemoglobin 31.5 pg (26-34); Mean Corpuscular Volume 91.2 fl (80-100); Mean Platelet Volume 10.2 fl (7.4-10.4); Monocytes Absolute Auto 0.8 K/mm3 (0.1-0.6); Monocytes Percent Auto 11.5 % (2.6-8.5); Neutrophils Absolute Auto 5.1 K/mm3 (1.3-6.7); Neutrophils Percent Auto 69.3 % (45.5-73.1); Platelet Count Result 191 k/mm3 (150-375); Red Blood Count 4.79 M/mm3 (4.6-6.20); Red Cell Distribution Width 12.3 % (11.5-14.5); White Blood Count 7.3 K/mm3 (4.5-10.0)
[2021-07-13 11:42] LABS: Phosphorus 2.6 mg/dL (2.5-4.5)
[2021-07-13 11:43] LABS: Alanine Aminotransferase 22 U/L (4-50); Albumin Level 4.3 g/dL (3.5-5.1); Alkaline Phosphatase 70 U/L (38-126); Anion Gap 11 mmol/L (8-16); Aspartate Amino Transferase 24 U/L (17-59); Bilirubin,Total 0.4 mg/dL (0.2-1.3); Blood Urea Nitrogen 16 mg/dL (9-20); CRP 1.2 mg/dL (<1.0); Carbon Dioxide 26 mmol/L (22-30); Chloride 103 mmol/L (98-107); Estimated CRCL calculation 67 ml/min; Estimated Glomerular Filt Rate > 60; Glucose 160 mg/dL (65-110); Lactate Dehydrogenase 317 U/L (313-618); Potassium 3.6 mmol/L (3.4-5.0); Sodium 140 mmol/L (137-145)
[2021-07-13 15:26] LABS: Alanine Aminotransferase 23 U/L (4-50); Estimated CRCL calculation 56 ml/min; Estimated Glomerular Filt Rate > 60
[2021-07-13] MEDS: HYDROcodone/acetaminophen (*CRX) 5-325 MG TABLET 1 TAB PO (16:38)
[2021-07-13] MEDS: IBUPROFEN 400 MG TABLET PO (16:39)
[2021-07-13] MEDS: DEXAMETHASONE 2 MG TABLET 6 MG PO (16:39)
[2021-07-13] MEDS: REMDESIVIR 200 MG/NS 250 ML 200 MG/250 ML BAG 250 MG IVPB (16:40)
[2021-07-13] MEDS: ALBUTEROL SULFATE (*SP) AEROSOL 1 PUFF 2 PUFF INHALATION (19:34)
[2021-07-13] MEDS: FLUTICASONE PROPIONATE 0.05% NA SPR 16 GM BTL (*BKC) 1 SPRAY NASAL (22:44)
[2021-07-14] VITALS (10 sets, daily range): BP systolic 113–137; BP diastolic 68–82; PULSE 55–92; RESP 18–20; TEMP 36.3–36.7; O2SAT 93–99
[2021-07-14] MEDS: ENOXAPARIN 40 MG/0.4 ML SYRINGE SUB-Q (08:26)
[2021-07-14] MEDS: FLUTICASONE PROPIONATE 0.05% NA SPR 16 GM BTL (*BKC) 1 SPRAY NASAL ×2 (08:27→21:16)
[2021-07-14] MEDS: levETIRAcetam 500 MG TABLET 1000 MG PO ×2 (08:27→21:18)
[2021-07-14] MEDS: guaiFENesin 12 HR 600 MG TABCR 1200 MG PO ×2 (08:27→21:17)
[2021-07-14] MEDS: FLUoxetine HCL 20 MG CAPSULE PO (08:27)
[2021-07-14] MEDS: PANTOPRAZOLE 40 MG TABLET PO ×2 (08:27→21:17)
[2021-07-14] MEDS: ATORVASTATIN 40 MG TABLET PO (08:27)
[2021-07-14] MEDS: DEXAMETHASONE 2 MG TABLET 6 MG PO (08:27)
[2021-07-14] MEDS: ALBUTEROL SULFATE (*SP) INHALER 2 PUFF INHALATION ×3 (10:09→20:43)
--- NOTE | 2021-07-14 10:28 | WPDNEURCNPN ---
Assessment and Plan Additional Plan vasovagal syncope in addition to the history of ongoing seizure disorder for which patient has been taking levetiracetam and that medication has already been started, and being treated accordingly with negative CTA of the ches, x-ray chest and cervical spine x-ray, treatment will be continued as such. Consult date: 07/14/21 HPI: Venu Garcia is a 56 year old male 56 years old has been admitted to the hospital for the complaint of syncopal episode in addition to ongoing history of 1. GERD 2. Dyslipidemia 3. Nocturnal movement disorder patient presented to the emergency room the complaints of Prieb to sternal discomfort radiating to his neck and shoulder on the left side along with the syncopal episode patient never had this kind of pain in the past, he does have ongoing history of 1. Seizure disorder 2. Recurrent dizziness and 3. Dyslipidemia as mentioned above, outpatient medications included fluoxetine 20 mg daily, levetiracetam 1000 mg twice a day, atorvastatin 40 mg daily and meclizine 25 mg on p.r.n. basis Review of Systems Review of Systems: All systems reviewed & are unremarkable except as noted in HPI and below PMFSH Past Medical History Medical History Dizziness Dyslipidemia Seizures Family History Family History Father Heart disease Sibling Seizures Social History Social History Smoking status: Never smoker Second hand tobacco smoke exposure: No Alcohol intake: never Substance use type: does not use Gender identity (if verbalized by the patient): Male Spiritual care concerns: No Meds Home Medications and Allergies Home Medications Medication Instructions Recorded Confirmed Type meclizine 25 mg PO TID PRN 09/25/20 07/11/21 History atorvastatin 40 mg PO DAILY 12/25/20 07/11/21 History fluoxetine 20 mg PO DAILY 12/25/20 07/11/21 History levetiracetam 1,000 mg tablet 1,000 mg PO BID #60 tablet 01/31/21 07/11/21 Rx omeprazole 20 mg PO BID PRN 07/11/21 07/11/21 History Allergies Allergy/AdvReac Type Severity Reaction Status Date / Time atenolol AdvReac Hypotension Verified 07/10/21 20:14 Vital Signs Vital Signs - 24 hr 07/13/21 12:00 07/13/21 16:00 07/13/21 18:00 Temperature 36.5 C Pulse Rate 77 64 63 Respiratory Rate 14 Blood Pressure 136/75 Pulse Oximetry 97 07/13/21 20:00 07/13/21 22:00 07/14/21 00:00 Temperature 36.8 C Pulse Rate 71 64 73 Respiratory Rate 18 Blood Pressure 122/74 122/74 Pulse Oximetry 94 07/14/21 04:00 07/14/21 06:00 07/14/21 08:00 Temperature 36.3 C L 36.5 C Pulse Rate 76 92 87 Respiratory Rate 18 20 Blood Pressure 118/72 120/82 Pulse Oximetry 95 93 Exam Const: General: cooperative, healthy appearing and no acute distress Nutritional Appearance: average body habitus and well nourished Orientation/consciousness: oriented to person, oriented to place and oriented to time Limitations: no limitations HENMT: Head: normal to inspection and normocephalic Ears: hearing grossly normal bilaterally General nose exam: Normal external nose present Face and sinus: normal facial exam Eyes: General: appearance normal, both eyes and all related structures Visual Delarosa: normal visual delarosa by confrontation Alignment and Position: alignment normal Periorbital: periorbital findings normal Eyelids: eyelids normal Conjunctivae: conjunctivae normal Sclera: sclerae normal Cornea: corneas normal Pupils: Equal, round and reactive pupils present EOM: EOMs intact bilaterally Direct Ophthalmoscopy: normal light reflex Neck: Neck: normal visual inspection and full ROM Carotids: normal carotid upstroke Lymphatic: no lymphadenopathy noted Resp: Effort & Inspection: normal respiratory effort and able to speak in complete sentences Auscultation: clear to a
[2021-07-14 10:47] LABS: Hematocrit 44.6 % (42.0-52.0); Hemoglobin 15.5 g/dL (14.0-18.0); Mean Corpuscular HGB Conc 34.8 g/dl (32-36); Mean Corpuscular Hemoglobin 31.1 pg (26-34); Mean Corpuscular Volume 89.6 fl (80-100); Mean Platelet Volume 10.7 fl (7.4-10.4); Platelet Count Result 224 k/mm3 (150-375); Red Blood Count 4.98 M/mm3 (4.6-6.20); Red Cell Distribution Width 11.9 % (11.5-14.5); White Blood Count 9.3 K/mm3 (4.5-10.0)
[2021-07-14 11:00] LABS: INR 1.1; Prothrombin Time 13.7 Seconds (11.1-14.7)
[2021-07-14 11:03] LABS: Alanine Aminotransferase 22 U/L (4-50); Albumin Level 4.6 g/dL (3.5-5.1); Alkaline Phosphatase 73 U/L (38-126); Anion Gap 10 mmol/L (8-16); Aspartate Amino Transferase 21 U/L (17-59); Bilirubin,Total 0.4 mg/dL (0.2-1.3); Blood Urea Nitrogen 20 mg/dL (9-20); CRP 1.1 mg/dL (<1.0); Carbon Dioxide 24 mmol/L (22-30); Chloride 103 mmol/L (98-107); Estimated CRCL calculation 73 ml/min; Estimated Glomerular Filt Rate > 60; Glucose 190 mg/dL (65-110); Lactate Dehydrogenase 330 U/L (313-618); Potassium 3.9 mmol/L (3.4-5.0); Sodium 137 mmol/L (137-145)
--- NOTE | 2021-07-14 11:18 | PM.IMPN ---
Progress Note: A&P Assessment and Plan (1) Chest pain in adult: Code(s): R07.9 - Chest pain, unspecified Status: Acute Assessment and Plan: EKG sinus rhythm with a heart rate of 60-70s echocardiogram reviewed Supportive care Continuous telemetry ECG reviewed trop 0.014>0.013>0.016 TSH 1.13, Mag 2.2 Cardiology consulted and plans for outpatient follow-up Cervical spine x-ray done yesterday to see if the pain is coming from his neck: vertebral body heights and alignment are normal. There is mild loss of intervertebral disc space height at C5-6. The odontoid appears to be intact. Headache and pain with cough - likely due to COVID and/or its hypoxia or Neuro effects. (2) Syncope: Qualifiers: Syncope type: unspecified Qualified Code(s): R55 - Syncope and collapse Code(s): R55 - Syncope and collapse Status: Acute Assessment and Plan: Cardiology consulted Orthostatics blood pressure readings not completed yet today Echo reviewed, 3 troponins were negative. remains on cardiac telemetry monitoring. Continue to monitor no syncope noted today (3) Seizures: Code(s): R56.9 - Unspecified convulsions Status: Acute Assessment and Plan: Continue levetiracetam Follow-up in outpatient setting Followed by Dr. Tim De Jesus consulted, awaiting his recommendations Does not look like it is related to a seizure May be related to COVID hypoxia (4) KAROL (obstructive sleep apnea): Code(s): G47.33 - Obstructive sleep apnea (adult) (pediatric) Status: Acute Assessment and Plan: CPAP at nighttime continue home settings (5) SARS-CoV-2 positive: Code(s): U07.1 - COVID-19 Status: Acute Assessment and Plan: start droplet isolation on room air in no other additional treatment needed will continue to monitor CXR and CT PE scan done, no PE. COVID + started on extra-strength Tylenol productive cough. Ordered sputum cultures, Remdesvimir and Dexamethasone, Albuterol and Mucinex. complaining of rhinorrhea, ordered Flonase. Consider CXR for morning. Encouraged him to get out of bed for his meals. incentive spirometer ordered. (6) Cough: Code(s): R05.9 - Cough, unspecified Status: Acute Assessment and Plan: Continues to elicit coughing with deep breathing, but no syncope today. ER COVID swab which came back positive SARS PCR result was positive, CRP mildly elevated checking other inflammatory markers in the morning CT PE scan showed no acute cardiopulmonary disease. No evidence for pulmonary embolism. Additional Plan 07/14/2021 Patient has mild shortness of breath,Otherwise feels better. Plan is to continue with remdesivir and dexamethasone present time. Increase activity as tolerated. Monitor oxygen closely. Subjective Date/time seen: 07/14/21 11:18 Patient was seen during the morning rounds today. Mild shortness of breath no chest pain. No abdominal pain, nausea, no vomiting. Mood stable. Review of Systems Review of Systems: All systems reviewed & are unremarkable except as noted in HPI and below ( HPI) Constitutional: Constitutional: Denies chills, Reports difficulty sleeping (He is finding it very hard to fall asleep and get any rest), Denies excessive sweating, Reports fatigue, Denies fever(s), Reports headache(s), Denies lethargy, Reports malaise, Denies night sweats, Denies poor appetite and Reports weakness Eyes: Eyes: Denies change in vision ENT: Denies dysphagia, Denies vertigo, Denies dizziness, Reports headache(s), Denies nasal congestion, Denies nasal discharge and Denies nasal obstruction Cardiovascular: Cardiovascular: Denies chest pain, Denies chest pain at rest, Denies chest pain with activity, Reports syncope, Denies pedal edema, Denies claudication, Denies leg edema, Denies lightheadedness, Reports radiating jaw, neck or arm pain, Denies palpitations, Denies dys
[2021-07-14] MEDS: REMDESIVIR 100 MG/NS 250 ML 100 MG/250 ML BAG 250 MG IVPB (21:20)
[2021-07-15] VITALS (8 sets, daily range): BP systolic 116–130; BP diastolic 69–88; PULSE 59–90; RESP 16–18; TEMP 36.4–37.1; O2SAT 95–98
[2021-07-15] MEDS: ALBUTEROL SULFATE (*SP) INHALER 2 PUFF INHALATION ×3 (01:38→13:39)
[2021-07-15 06:48] LABS: Hematocrit 41.7 % (42.0-52.0); Hemoglobin 14.4 g/dL (14.0-18.0); Mean Corpuscular HGB Conc 34.5 g/dl (32-36); Mean Corpuscular Hemoglobin 30.9 pg (26-34); Mean Corpuscular Volume 89.5 fl (80-100); Platelet Count Result 239 k/mm3 (150-375); Red Blood Count 4.66 M/mm3 (4.6-6.20); Red Cell Distribution Width 12.1 % (11.5-14.5); White Blood Count 11.9 K/mm3 (4.5-10.0)
[2021-07-15 06:56] LABS: INR 1.1; Prothrombin Time 14.2 Seconds (11.1-14.7)
[2021-07-15 06:57] LABS: Alanine Aminotransferase 19 U/L (4-50); Albumin Level 4.3 g/dL (3.5-5.1); Alkaline Phosphatase 66 U/L (38-126); Anion Gap 10 mmol/L (8-16); Aspartate Amino Transferase 19 U/L (17-59); Bilirubin,Total 0.4 mg/dL (0.2-1.3); Blood Urea Nitrogen 20 mg/dL (9-20); CRP 0.8 mg/dL (<1.0); Calcium 8.9 mg/dL (8.4-10.2); Carbon Dioxide 24 mmol/L (22-30); Chloride 105 mmol/L (98-107); Estimated CRCL calculation 67 ml/min; Estimated Glomerular Filt Rate > 60; Glucose 117 mg/dL (65-110); Lactate Dehydrogenase 296 U/L (313-618); Potassium 3.7 mmol/L (3.4-5.0); Sodium 139 mmol/L (137-145)
[2021-07-15] MEDS: levETIRAcetam 500 MG TABLET 1000 MG PO ×2 (08:45→20:52)
[2021-07-15] MEDS: PANTOPRAZOLE 40 MG TABLET PO ×2 (08:45→20:52)
[2021-07-15] MEDS: FLUoxetine HCL 20 MG CAPSULE PO (08:45)
[2021-07-15] MEDS: ATORVASTATIN 40 MG TABLET PO (08:45)
[2021-07-15] MEDS: ENOXAPARIN 40 MG/0.4 ML SYRINGE SUB-Q (08:45)
[2021-07-15] MEDS: DEXAMETHASONE 2 MG TABLET 6 MG PO (08:46)
[2021-07-15] MEDS: guaiFENesin 12 HR 600 MG TABCR 1200 MG PO ×2 (08:46→20:53)
[2021-07-15] MEDS: FLUTICASONE PROPIONATE 0.05% NA SPR 16 GM BTL (*BKC) 1 SPRAY NASAL ×2 (08:49→20:52)
--- NOTE | 2021-07-15 12:19 | WPDNEUROPN ---
Progress Note: A&P Additional Plan 1. Ongoing history of seizure disorder 2. COVID infection with nonfocal neurological status and plan is to continue the treatment as such Subjective Date/time seen: 07/15/21 12:19 seen for vasovagal syncope in addition to the ongoing history of seizure disorder but patient has been taking levetiracetam, being observed for the chest pain also for the orthostasis additionally his stars PCR is positive but the CT scan of the chest revealed no acute cardiopulmonary disease and patient is being treated with Kirill S fair and dexamethasone Review of Systems Review of Systems: All systems reviewed & are unremarkable except as noted in HPI and below Exam Const: General: cooperative, healthy appearing, comfortable and no acute distress Orientation/consciousness: oriented to person, oriented to place and oriented to time Limitations: no limitations HENMT: Head: normal to inspection and normocephalic Ears: hearing grossly normal bilaterally General nose exam: Normal external nose present Face and sinus: normal facial exam Eyes: General: appearance normal, both eyes and all related structures Visual Delarosa: normal visual delarosa by confrontation Alignment and Position: alignment normal Periorbital: periorbital findings normal Eyelids: eyelids normal Conjunctivae: conjunctivae normal Sclera: sclerae normal Cornea: corneas normal Pupils: Equal, round and reactive pupils present EOM: EOMs intact bilaterally Direct Ophthalmoscopy: normal light reflex Neck: Neck: normal visual inspection, full ROM and no lymphadenopathy Resp: Effort & Inspection: normal respiratory effort and able to speak in complete sentences Auscultation: clear to auscultation bilaterally Neuro: General: oriented to person, oriented to place, oriented to time and patient oriented x3 Cranial nerves: Yes CN's II-XII intact bilaterally Cognition (Neuro): normal cognition Speech: normal speech Motor exam (neuro): 5/5 motor strength present throughout Sensory Exam: normal sensation Deep tendon reflexes (DTR's): Right triceps reflex intensity grade: 1+, Left triceps reflex intensity grade: 1+, Rt Biceps (C5, C6): 1+, Left biceps reflex intensity grade: 1+, Right brachioradialis reflex intensity grade: 1+, Left brachioradialis reflex intensity grade: 1+, Right patellar reflex intensity grade: 1+, Left patellar reflex intensity grade: 1+, Right ankle reflex intensity grade: 1+ and Left ankle reflex intensity grade: 1+ Plantar Reflex Responses: downgoing: bilateral Coordination: [id number] test normal Psych: Appearance: grossly normal Mental Status: mental status grossly normal Speech and movement: Normal speech and movement present Affect: normal affect Attitude: cooperative Thought process: Normal thought process present Thought content: Yes Normal thought content present Insight: Good insight present (Psych) Judgement: Good judgement present (Psych) Objective Data Vital Signs Vital Signs: Vital Signs - 24 hr 07/14/21 15:59 07/14/21 16:00 07/14/21 20:00 Temperature 36.4 C 36.7 C Pulse Rate 55 L 71 89 Respiratory Rate 18 18 Blood Pressure 135/68 113/70 Pulse Oximetry 96 96 07/14/21 20:45 07/15/21 00:00 07/15/21 04:00 Temperature 36.7 C 37.1 C Pulse Rate 71 90 Respiratory Rate 18 18 Blood Pressure 116/69 125/79 Pulse Oximetry 96 95 96 07/15/21 08:00 Temperature 36.9 C Pulse Rate 74 Respiratory Rate 18 Blood Pressure 120/81 Pulse Oximetry 96 Intake/Output Intake/Output: Intake & Output 07/12/21 07/13/21 07/14/21 07/15/21 23:59 23:59 23:59 23:59 Intake Total 1658 452 7978 740 Balance 9455 452 7099 740 Meds/Results Medications: Active Medications Generic Name Dose Route Start Last Admin Trade Name Freq PRN Reason Stop Dose Admin Acetaminophen 1,000 mg 07/13/21 10:11 07/13/21 11:18 Acetaminophen 500 Mg Tablet PO 1,000 mg Q6H PRN Administration Mild Pain (1-3) or Fever
--- NOTE | 2021-07-15 13:10 | P.PNIM_ITS ---
Progress Note: A&P Assessment and Plan (1) Chest pain in adult: Code(s): R07.9 - Chest pain, unspecified Status: Acute Assessment and Plan: * EKG sinus rhythm with a heart rate of 60-70s * echocardiogram no significant finding * Supportive care * Continuous telemetry * ECG reviewed * trop 0.014>0.013>0.016 * TSH 1.13, Mag 2.2 * Cardiology consulted and plans for outpatient follow-up * Most likely pain is related to musculoskeletal (2) Syncope: Qualifiers: Syncope type: unspecified Qualified Code(s): R55 - Syncope and collapse Code(s): R55 - Syncope and collapse Status: Acute Assessment and Plan: * Cardiology consulted * Probably related to COVID-19 and dehydration * Echo reviewed, 3 troponins were negative. * remains on cardiac telemetry monitoring. * Continue to monitor * no syncope noted today (3) Seizures: Code(s): R56.9 - Unspecified convulsions Status: Acute Assessment and Plan: * Continue levetiracetam * Follow-up in outpatient setting * Followed by Dr. Dumont * Neurology following * Patient has history of seizure seizure precaution * May be related to COVID hypoxia (4) KAROL (obstructive sleep apnea): Code(s): G47.33 - Obstructive sleep apnea (adult) (pediatric) Status: Acute Assessment and Plan: * CPAP at nighttime * continue home settings (5) SARS-CoV-2 positive: Code(s): U07.1 - COVID-19 Status: Acute Assessment and Plan: CXR and CT PE scan done, no PE. COVID + , Remdesvimir and Dexamethasone, Albuterol and Mucinex. complaining of rhinorrhea, ordered Flonase. Consider CXR for morning. Encouraged him to get out of bed for his meals. incentive spirometer ordered. (6) Cough: Code(s): R05.9 - Cough, unspecified Status: Acute Assessment and Plan: Continue COVID-19 protocol Anticipate discharge in a.m. Subjective Date/time seen: 07/15/21 13:10 Interval history: Patient seen and examined Patient feels weak shortness of breath has improved Patient denies fever headache chest pain I am seeing the patient for. Shortness of breath Exam Narrative: Alert Chest decreased air entry bilateral positive crackles Abdomen nontender nondistended CVS S1 + S2 Lower extremity edema Objective Data Vital Signs Vital Signs: Vital Signs - 24 hr 07/14/21 15:59 07/14/21 16:00 07/14/21 20:00 Temperature 97.6 F 98.1 F Pulse Rate 55 L 71 89 Respiratory Rate 18 18 Blood Pressure 135/68 113/70 Pulse Oximetry 96 96 07/14/21 20:45 07/15/21 00:00 07/15/21 04:00 Temperature 98.0 F 98.7 F Pulse Rate 71 90 Respiratory Rate 18 18 Blood Pressure 116/69 125/79 Pulse Oximetry 96 95 96 07/15/21 08:00 Temperature 98.5 F Pulse Rate 74 Respiratory Rate 18 Blood Pressure 120/81 Pulse Oximetry 96 Intake/Output Intake/Output: Intake & Output 07/12/21 07/13/21 07/14/21 07/15/21 23:59 23:59 23:59 23:59 Intake Total 1182 973 4392 740 Balance 7764 617 9328 740 Meds/Results Medications: Active Medications Generic Name Dose Route Start Last Admin Trade Name Gerri Byrd
--- NOTE | 2021-07-15 13:10 | PM.IMPN ---
Progress Note: A&P Assessment and Plan (1) Chest pain in adult: Code(s): R07.9 - Chest pain, unspecified Status: Acute Assessment and Plan: EKG sinus rhythm with a heart rate of 60-70s echocardiogram no significant finding Supportive care Continuous telemetry ECG reviewed trop 0.014>0.013>0.016 TSH 1.13, Mag 2.2 Cardiology consulted and plans for outpatient follow-up Most likely pain is related to musculoskeletal (2) Syncope: Qualifiers: Syncope type: unspecified Qualified Code(s): R55 - Syncope and collapse Code(s): R55 - Syncope and collapse Status: Acute Assessment and Plan: Cardiology consulted Probably related to COVID-19 and dehydration Echo reviewed, 3 troponins were negative. remains on cardiac telemetry monitoring. Continue to monitor no syncope noted today (3) Seizures: Code(s): R56.9 - Unspecified convulsions Status: Acute Assessment and Plan: Continue levetiracetam Follow-up in outpatient setting Followed by Dr. Dumont Neurology following Patient has history of seizure seizure precaution May be related to COVID hypoxia (4) KAROL (obstructive sleep apnea): Code(s): G47.33 - Obstructive sleep apnea (adult) (pediatric) Status: Acute Assessment and Plan: CPAP at nighttime continue home settings (5) SARS-CoV-2 positive: Code(s): U07.1 - COVID-19 Status: Acute Assessment and Plan: CXR and CT PE scan done, no PE. COVID + , Remdesvimir and Dexamethasone, Albuterol and Mucinex. complaining of rhinorrhea, ordered Flonase. Consider CXR for morning. Encouraged him to get out of bed for his meals. incentive spirometer ordered. (6) Cough: Code(s): R05.9 - Cough, unspecified Status: Acute Assessment and Plan: Continue COVID-19 protocol Anticipate discharge in a.m. Subjective Date/time seen: 07/15/21 13:10 Interval history: Patient seen and examined Patient feels weak shortness of breath has improved Patient denies fever headache chest pain I am seeing the patient for. Shortness of breath Exam Narrative: Alert Chest decreased air entry bilateral positive crackles Abdomen nontender nondistended CVS S1 + S2 Lower extremity edema Objective Data Vital Signs Vital Signs: Vital Signs - 24 hr 07/14/21 15:59 07/14/21 16:00 07/14/21 20:00 Temperature 97.6 F 98.1 F Pulse Rate 55 L 71 89 Respiratory Rate 18 18 Blood Pressure 135/68 113/70 Pulse Oximetry 96 96 07/14/21 20:45 07/15/21 00:00 07/15/21 04:00 Temperature 98.0 F 98.7 F Pulse Rate 71 90 Respiratory Rate 18 18 Blood Pressure 116/69 125/79 Pulse Oximetry 96 95 96 07/15/21 08:00 Temperature 98.5 F Pulse Rate 74 Respiratory Rate 18 Blood Pressure 120/81 Pulse Oximetry 96 Intake/Output Intake/Output: Intake & Output 07/12/21 07/13/21 07/14/21 07/15/21 23:59 23:59 23:59 23:59 Intake Total 5483 023 2807 740 Balance 3855 026 0728 740 Meds/Results Medications: Active Medications Generic Name Dose Route Start Last Admin Trade Name Freq PRN Reason Stop Dose Admin Acetaminophen 1,000 mg 07/13/21 10:11 07/13/21 11:18 Acetaminophen 500 Mg Tablet PO 1,000 mg Q6H PRN Administration Mild Pain (1-3) or Fever Hydrocodone Bitart/Acetaminophen 1 tab 07/13/21 14:52 Hydrocodone/Acetaminophen (*Crx) 5-325 Mg Tablet PO Q6H PRN Pain Rated 7-10 Albuterol 2 puff 07/14/21 08:00 07/15/21 08:25 Albuterol Sulfate (*Sp) Inhaler INHALATION 2 puff Q6HRT SARAVANAN Administration Atorvastatin Calcium 40 mg 07/12/21 09:00 07/15/21 08:45 Atorvastatin 40 Mg Tablet PO 40 mg DAILY SARAVANAN Administration Dexamethasone 6 mg 07/13/21 15:00 07/15/21 08:46 Dexamethasone 2 Mg Tablet PO 07/22/21 08:01 6 mg DAILY@0800 SARAVANAN Administration Enoxaparin Sodium 40 mg 07/14/21 09:00 07/15/21 08:45 Enoxaparin 40 Mg/0.4 Ml Syrin
[2021-07-15] MEDS: REMDESIVIR 100 MG/NS 250 ML 100 MG/250 ML BAG 250 MG IVPB (20:53)
[2021-07-16] VITALS (8 sets, daily range): BP systolic 115–126; BP diastolic 61–76; PULSE 53–99; RESP 16–20; TEMP 36.2–36.6; O2SAT 95–97
[2021-07-16] MEDS: ALBUTEROL SULFATE (*SP) INHALER 2 PUFF INHALATION ×2 (02:18→08:34)
[2021-07-16 07:27] LABS: Hematocrit 40.4 % (42.0-52.0); Hemoglobin 14.1 g/dL (14.0-18.0); Mean Corpuscular HGB Conc 34.9 g/dl (32-36); Mean Corpuscular Hemoglobin 31.3 pg (26-34); Mean Corpuscular Volume 89.8 fl (80-100); Mean Platelet Volume 10.7 fl (7.4-10.4); Platelet Count Result 213 k/mm3 (150-375); Red Cell Distribution Width 12.2 % (11.5-14.5); White Blood Count 10.9 K/mm3 (4.5-10.0)
[2021-07-16 08:06] LABS: INR 1.1; Prothrombin Time 14.4 Seconds (11.1-14.7)
[2021-07-16 08:22] LABS: Alanine Aminotransferase 17 U/L (4-50); Albumin Level 4.1 g/dL (3.5-5.1); Alkaline Phosphatase 70 U/L (38-126); Anion Gap 9 mmol/L (8-16); Aspartate Amino Transferase 19 U/L (17-59); Bilirubin,Total 0.3 mg/dL (0.2-1.3); Blood Urea Nitrogen 26 mg/dL (9-20); CRP 0.6 mg/dL (<1.0); Calcium 8.8 mg/dL (8.4-10.2); Carbon Dioxide 26 mmol/L (22-30); Chloride 103 mmol/L (98-107); Estimated CRCL calculation 73 ml/min; Estimated Glomerular Filt Rate > 60; Glucose 104 mg/dL (65-110); Lactate Dehydrogenase 311 U/L (313-618); Potassium 3.6 mmol/L (3.4-5.0); Sodium 138 mmol/L (137-145)
[2021-07-16] MEDS: PANTOPRAZOLE 40 MG TABLET PO (10:30)
[2021-07-16] MEDS: levETIRAcetam 500 MG TABLET 1000 MG PO (10:30)
[2021-07-16] MEDS: FLUoxetine HCL 20 MG CAPSULE PO (10:31)
[2021-07-16] MEDS: ATORVASTATIN 40 MG TABLET PO (10:31)
[2021-07-16] MEDS: ENOXAPARIN 40 MG/0.4 ML SYRINGE SUB-Q (10:31)
[2021-07-16] MEDS: DEXAMETHASONE 2 MG TABLET 6 MG PO (10:31)
[2021-07-16] MEDS: guaiFENesin 12 HR 600 MG TABCR 1200 MG PO (10:31)
--- NOTE | 2021-07-16 11:25 | P.DS_ITS ---
DS: Admitting Diagnosis Discharge Date 07/16/2021 Admitting Diagnosis Syncope chest pain DS: Discharge Diagnosis Discharge Diagnosis (1) Chest pain in adult: Code(s): R07.9 - Chest pain, unspecified Status: Acute Assessment and Plan: * EKG sinus rhythm with a heart rate of 60-70s * echocardiogram no significant finding * Supportive care * Continuous telemetry * ECG reviewed * trop 0.014>0.013>0.016 * TSH 1.13, Mag 2.2 * Cardiology consulted and plans for outpatient follow-up * Most likely pain is related to musculoskeletal follow-up with PCP as outpatient (2) Syncope: Qualifiers: Syncope type: unspecified Qualified Code(s): R55 - Syncope and collapse Code(s): R55 - Syncope and collapse Status: Acute Assessment and Plan: * Cardiology consulted * Probably related to COVID-19 and dehydration orthostatic hypotension vasovagal * Echo reviewed, 3 troponins were negative. * remains on cardiac telemetry monitoring. * Continue to monitor * Follow-up with cardiology may need event monitor as outpatient (3) Seizures: Code(s): R56.9 - Unspecified convulsions Status: Acute Assessment and Plan: * Continue levetiracetam * Follow-up in outpatient setting * Followed by Dr. Dumont * Neurology following * Patient has history of seizure seizure precaution * May be related to COVID hypoxia * No driving until cleared by PCP or Neurology as outpatient patient aware of seizure related restriction (4) KAROL (obstructive sleep apnea): Code(s): G47.33 - Obstructive sleep apnea (adult) (pediatric) Status: Acute Assessment and Plan: * CPAP at nighttime * continue home settings (5) SARS-CoV-2 positive: Code(s): U07.1 - COVID-19 Status: Acute Assessment and Plan: CXR and CT PE scan done, no PE. COVID + , Remdesvimir and Dexamethasone, Albuterol Patient currently on room air patient will be discharged on albuterol (6) Cough: Code(s): R05.9 - Cough, unspecified Status: Acute Assessment and Plan: Continue COVID-19 protocol DS: Summary Hospital Course Hospital Course: Patient was admitted to the hospital with chest pain had syncopal episode cardiology neurology was consulted most likely chest pain was musculoskeletal patient to follow-up with cardiology as outpatient syncope most likely related to COVID-19 dehydration vasovagal patient may need event monitor as outpatient discussed in details restriction of activity and driving to the full satisfaction of the patient. Patient was not hypoxic CT scan did not show COVID-19 pneumonia patient treated with dexamethasone and remdesivir for 3 days Time Spent with Patient Time attestation: Total time spent providing and/or coordinating discharge services: Exam Narrative: Alert Chest decreased air entry bilateral positive crackles Abdomen nontender nondistended CVS S1 + S2 Lower extremity edema DS: Data Data Completed and Pending Labs on day of discharge: Labs from last 24 hours 07/16/21 07/16/21 07/16/21 07:07 07:07 07:07 WBC RBC Hgb Hct MCV MCH MCHC RDW Plt Count MPV PT 14.4 INR 1.1 Sodium 138 Potassium 3.6 Chloride 103 Carbon Dioxide 26 Anion Gap 9
--- NOTE | 2021-07-16 11:25 | PM.DS ---
DS: Admitting Diagnosis Discharge Date 07/16/2021 Admitting Diagnosis Syncope chest pain DS: Discharge Diagnosis Discharge Diagnosis (1) Chest pain in adult: Code(s): R07.9 - Chest pain, unspecified Status: Acute Assessment and Plan: EKG sinus rhythm with a heart rate of 60-70s echocardiogram no significant finding Supportive care Continuous telemetry ECG reviewed trop 0.014>0.013>0.016 TSH 1.13, Mag 2.2 Cardiology consulted and plans for outpatient follow-up Most likely pain is related to musculoskeletal follow-up with PCP as outpatient (2) Syncope: Qualifiers: Syncope type: unspecified Qualified Code(s): R55 - Syncope and collapse Code(s): R55 - Syncope and collapse Status: Acute Assessment and Plan: Cardiology consulted Probably related to COVID-19 and dehydration orthostatic hypotension vasovagal Echo reviewed, 3 troponins were negative. remains on cardiac telemetry monitoring. Continue to monitor Follow-up with cardiology may need event monitor as outpatient (3) Seizures: Code(s): R56.9 - Unspecified convulsions Status: Acute Assessment and Plan: Continue levetiracetam Follow-up in outpatient setting Followed by Dr. Dumont Neurology following Patient has history of seizure seizure precaution May be related to COVID hypoxia No driving until cleared by PCP or Neurology as outpatient patient aware of seizure related restriction (4) KAROL (obstructive sleep apnea): Code(s): G47.33 - Obstructive sleep apnea (adult) (pediatric) Status: Acute Assessment and Plan: CPAP at nighttime continue home settings (5) SARS-CoV-2 positive: Code(s): U07.1 - COVID-19 Status: Acute Assessment and Plan: CXR and CT PE scan done, no PE. COVID + , Remdesvimir and Dexamethasone, Albuterol Patient currently on room air patient will be discharged on albuterol (6) Cough: Code(s): R05.9 - Cough, unspecified Status: Acute Assessment and Plan: Continue COVID-19 protocol DS: Summary Hospital Course Hospital Course: Patient was admitted to the hospital with chest pain had syncopal episode cardiology neurology was consulted most likely chest pain was musculoskeletal patient to follow-up with cardiology as outpatient syncope most likely related to COVID-19 dehydration vasovagal patient may need event monitor as outpatient discussed in details restriction of activity and driving to the full satisfaction of the patient. Patient was not hypoxic CT scan did not show COVID-19 pneumonia patient treated with dexamethasone and remdesivir for 3 days Time Spent with Patient Time attestation: Total time spent providing and/or coordinating discharge services: Exam Narrative: Alert Chest decreased air entry bilateral positive crackles Abdomen nontender nondistended CVS S1 + S2 Lower extremity edema DS: Data Data Completed and Pending Labs on day of discharge: Labs from last 24 hours 07/16/21 07/16/21 07/16/21 07:07 07:07 07:07 WBC RBC Hgb Hct MCV MCH MCHC RDW Plt Count MPV PT 14.4 INR 1.1 Sodium 138 Potassium 3.6 Chloride 103 Carbon Dioxide 26 Anion Gap 9 BUN 26 H Creatinine 0.90 Estim Creat Clear Calc 73 Estimated GFR > 60 Glucose 104 Calcium 8.8 Ferritin 102.00 Total Bilirubin 0.3 AST 19 ALT 17 Alkaline Phosphatase 70 Lactate Dehydrogenase 311 L C-Reactive Protein 0.6 Total Protein 7.0 Albumin 4.1 Levetiracetam 07/16/21 07/10/21 07:07 21:29 WBC 10.9 H RBC 4.50 L Hgb 14.1 Hct 40.4 L MCV 89.8 MCH 31.3 MCHC 34.9 RDW 12.2 Plt Count 213 MPV 10.7 H PT INR Sodium Potassium Chloride Carbon Dioxide Anion Gap BUN Creatinine Estim Creat Clear Calc Estimated GFR Glucose Calcium Ferritin Total
--- NOTE | 2021-07-16 11:44 | PCRCNOTE ---
HOME O2 EVAL COMPLETE, NO REQUIREMENTS
== END 2021-07-16 14:47 | disposition home or self-care (01) | DRG 137 ==
LOC: ANHED 22:33 → ANH3MEDSUR 07-11 01:57
PROVIDERS: Internal Medicine; Nurse Practitioner; Admitting Provider Internal Medicine; Emergency Provider Emergency Medicine; PCP Internal Medicine; Visit Provider Internal Medicine
DX: U07.1 COVID-19 (principal); I95.1 Orthostatic hypotension; E86.0 Dehydration; R07.89 Other chest pain; G47.33 Obstructive sleep apnea (adult) (pediatric); E78.5 Hyperlipidemia, unspecified; G40.909 Epilepsy, unspecified, not intractable, without status epilepticus; K21.9 Gastro-esophageal reflux disease without esophagitis
CPT/HCPCS: 36415; 70450; 71045; 71275; 72020; 80053; 80177; 82565; 82728; 83615; 83735; 84100; 84443; 84460; 84484; 85025; 85027; 85610; 86140; 87070; 87205; 87426; 93005; 93306; 94618; 94640; 96360; 96372; 96374; 99285; A9270; C9113; C9803; G0378; G0379; J1650; J7120; J8540; Q9967; U0003; U0005

== ENCOUNTER 2021-07-29 18:59 | Emergency (ER) | payer OTHER, SELFPAY ==
--- NOTE | ~2021-07-29 | CT_ITS ---
EXAMINATION: CT cervical spine wo con DATE: 07/29/2021 21:35 INDICATION: Hanging; suicide attempt TECHNIQUE: Computed tomography (CT) of the cervical spine was performed without intravenous contrast. Automated exposure control and iterative reconstruction technique were employed. Exam dose: 479.64 mGy-cm total exam DLP. COMPARISON: None FINDINGS: C1 and C2 are normally aligned and the odontoid process is intact. No cervical spine fracture, dislocation, locked facet or prevertebral soft tissue swelling. There is mild degenerative disease primarily at C5-6 including mild loss of interspace height and mil d posterior spurring . IMPRESSION: No fracture or dislocation or locked facet Mild degenerative disease at C5-6 Reviewed, dictated and finalized at [facility]. Reviewed, dictated and finalized at [facility]. CE REPAIR TECHNICIAN
[2021-07-29 19:01] VITALS: BP 122/80; PULSE 83; RESP 19; TEMP 36.9; O2SAT 95
[2021-07-29 19:28] LABS: Basophils Absolute Auto 0.1 K/mm3 (0.0-0.1); Basophils Percent Auto 0.7 % (0.2-1.2); Eosinophils Absolute Auto 0.3 K/mm3 (0-0.3); Eosinophils Percent Auto 3.1 % (0-4.4); Hematocrit 46.7 % (42.0-52.0); Immature Granulocyte Absolute 0.03 K/mm3 (0.00-0.031); Immature Granulocyte Percent A 0.4 % (0-0.5); Lymphocytes Absolute Auto 1.73 K/mm3 (0.9-3.2); Lymphocytes Percent Auto 20.4 % (18.3-44.2); Mean Corpuscular HGB Conc 34.3 g/dl (32-36); Mean Corpuscular Hemoglobin 31.4 pg (26-34); Mean Corpuscular Volume 91.7 fl (80-100); Mean Platelet Volume 10.5 fl (7.4-10.4); Monocytes Absolute Auto 0.7 K/mm3 (0.1-0.6); Neutrophils Absolute Auto 5.7 K/mm3 (1.3-6.7); Neutrophils Percent Auto 67.4 % (45.5-73.1); Platelet Count Result 242 k/mm3 (150-375); Red Blood Count 5.09 M/mm3 (4.6-6.20); Red Cell Distribution Width 12.5 % (11.5-14.5); White Blood Count 8.5 K/mm3 (4.5-10.0)
[2021-07-29 19:42] LABS: Ethanol < 10 mg/dL (<10)
[2021-07-29 19:50] LABS: Alanine Aminotransferase 22 U/L (4-50); Albumin Level 4.3 g/dL (3.5-5.1); Alkaline Phosphatase 105 U/L (38-126); Anion Gap 9 mmol/L (8-16); Aspartate Amino Transferase 22 U/L (17-59); Bilirubin,Total 0.4 mg/dL (0.2-1.3); Blood Urea Nitrogen 24 mg/dL (9-20); Calcium 9.3 mg/dL (8.4-10.2); Carbon Dioxide 26 mmol/L (22-30); Chloride 105 mmol/L (98-107); Estimated CRCL calculation 61 ml/min; Estimated Glomerular Filt Rate > 60; Glucose 141 mg/dL (65-110); Potassium 3.9 mmol/L (3.4-5.0); Sodium 140 mmol/L (137-145)
[2021-07-29 20:04] LABS: SARS-CoV-2 RNA PCR Negative
[2021-07-29 20:21] LABS: Thyroid Stimulating Hormone 0.898 uIU/mL (0.465-4.680)
[2021-07-29 21:26] LABS: Add Urine Microscopic? YES; Appearance Urine Clear (Clear); Bilirubin Urine Negative (Negative); Blood Urine Negative (Negative); Color Urine Yellow (Yellow); Glucose Urine UA Negative (Negative); Ketones Urine Trace mg/dL (Negative); Leukocyte Esterase Ur Negative LEU/UL (Negative); Mucus Urine Heavy /lpf; Nitrate Urine Negative (Negative); Protein Urine Negative (Negative); Specific Grav Ur 1.029 (1.001-1.035); WBC Urine 0-3 /hpf
[2021-07-29 21:37] LABS: Amphetamine Screen Urine Negative (Negative); Barbiturate Screen Urine Negative (Negative); Benzodiazepines Screen Urine Negative (Negative); Cannabinoid Screen Urine Negative (Negative); Cocaine Screen Urine Negative (Negative); Methadone Screen Urine Negative (Negative); Opiate Screen Urine Negative (Negative); Phencyclidine Screen Urine Negative (Negative)
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
--- NOTE | 2021-07-29 21:59 | PC.NURSE ---
patient in secure room. staff sitter at bedside. c-collar remains in place at this time. denies any further threats of harming self. crisis called at this time, message left to return call
--- NOTE | 2021-07-29 22:04 | PC.NURSE ---
raina at crisis returned call. report given
--- NOTE | 2021-07-29 23:23 | PC.NURSE ---
Addendum entered by Shannan Chicas RN 07/29/21 23:24: c-collar removed by radio news writer per Dr. Romero's orders Original Note: c-collar removed at this time
--- NOTE | 2021-07-29 23:31 | PC.NURSE ---
Assumed care of pt at this time, report received from Shannan GARCIA. Pt is alert on stretcher, discussed POC. Crista from Crisis here for patient eval at this time.
[2021-07-29 23:42] VITALS: BP 138/92; PULSE 58; RESP 19; O2SAT 97
--- NOTE | 2021-07-30 00:03 | PC.NURSE ---
Pt given box lunch and drink per request, [facility] EDP Dr Heather shi for meal.
--- NOTE | 2021-07-30 01:46 | PC.NURSE ---
[facility] in [place] called to notify pt has been accepted for in patient treatment. EDP Dr Romero made aware. Accepting physician Fredis, gave nurse to nurse report to Raquel GARCIA at [phone], BED [phone]. Requested ETA of when EMS picks up pt for transport - can be called to given number. Pt signed consent and was updated on POC. EMS transport being arranged at this time.
--- NOTE | 2021-07-30 02:24 | PC.NURSE ---
made contact with [facility] to transfer pt to [facility]. eta [phone]
[2021-07-30 03:17] VITALS: BP 109/84; PULSE 75; RESP 13; O2SAT 96
--- NOTE | 2021-07-30 04:17 | PC.NURSE ---
made contact with [facility] for a new eta of [phone]
--- NOTE | 2021-07-30 04:17 | PC.NURSE ---
Per pt, okay to have visitor named Juliana Merino. Discussed this via telephone w/ Juliana due to pt verbal consent.
--- NOTE | 2021-07-30 04:18 | PC.NURSE ---
Updated EMS transport time now aprox 0930 per Abbi - [facility] [place]
--- NOTE | 2021-07-30 05:18 | PC.NURSE ---
[facility] made contact with unit secratary with updated eta 20 minutes. call was received at [phone]
--- NOTE | 2021-07-30 05:35 | PC.NURSE ---
emmanuel has arrived and is aware that pt is going to [facility]. vince did make contact with facility to update time departure
--- NOTE | 2021-07-30 05:40 | PC.NURSE ---
Sathya called to request info on pt, this RN made aware pt has bed at [facility] in [place].
== END 2021-07-30 05:41 | disposition short-term general hospital (02) ==
PROVIDERS: Emergency Provider Emergency Medicine; PCP Internal Medicine
DX: T71.162A Asphyxiation due to hanging, intentional self-harm, initial encounter (principal); F32.A Depression, unspecified; Z20.822 Contact with and (suspected) exposure to COVID-19; E78.5 Hyperlipidemia, unspecified; M50.322 Other cervical disc degeneration at C5-C6 level
CPT/HCPCS: 36415; 72125; 80053; 80307; 81001; 84443; 85025; 99285; C9803; U0003; U0005

== ENCOUNTER 2021-09-07 09:32 | Emergency (ER) | payer OTHER, SELFPAY ==
--- NOTE | ~2021-09-07 | XR_ITS ---
EXAMINATION: XR chest 2V DATE: 09/07/2021 10:18 INDICATION: Chest pain radiating to the left arm. TECHNIQUE: Frontal and lateral views of the chest were obtained. COMPARISON: Chest single view 07/12/2021 FINDINGS: The chest demonstrates clear lungs without pneumonia, pleural effusion, or pneumothorax. Th e heart size is normal. IMPRESSION: 1. No acute cardiopulmonary disease. Reviewed, dictated and finalized at location A. T ASSOCIATE
--- NOTE | 2021-09-07 09:34 | ECG_ITS ---
Measurements Intervals [place] Rate: 69 P: 50 CO: 181 QRS: 59 QRSD: 101 T: 38 QT: 379 QTc: 408 Interpretive Statements SINUS RHYTHM NORMAL ECG COMPARED TO ECG 07/10/2021 20:09:23 NO SIGNIFICANT CHANGES Electronically Signed On 09-07-2021 11:06:37 BRIM POUNCER MACHINE OPERATOR by Mian Grace M.D.
[2021-09-07 09:35] VITALS: BP 129/90; PULSE 73; RESP 18; TEMP 37.1; O2SAT 96
--- NOTE | 2021-09-07 09:41 | ED.CHESTPAIN ---
HPI - Chest Pain General Chief Complaint: Chest Pain Stated Complaint: chest/left arm pain x1 hour Time Seen by Provider: 09/07/21 09:38 Source: patient Mode of arrival: ambulatory Limitations: no limitations History of Present Illness HPI narrative: This is a 56-year-old male that presents to the emergency department for chest pain present over the last hour. Reports he was talking to his girlfriend on the phone when he started to experience left-sided chest pain. The pain radiates into his neck and into his left arm. Sometimes it is worse with movement. He did not take anything for pain. Reports shortness of breath associated with the pain. It is a constant dull ache and intermittently sharp. Reports history of coronary artery disease, but he does not currently have a mold shaker. Reports he last had a stress test last year which he reports was without acute findings. Denies fever, cough, or lower extremity edema. Related Data Home Medications Medication Instructions Recorded Confirmed meclizine 25 mg PO TID PRN 09/25/20 07/11/21 atorvastatin 40 mg PO DAILY 12/25/20 07/11/21 omeprazole 20 mg PO BID PRN 07/11/21 07/11/21 aspirin [Aspirin Child] 81 mg PO DAILY 09/07/21 Allergies Allergy/AdvReac Type Severity Reaction Status Date / Time atenolol AdvReac Hypotension Verified 07/10/21 20:14 Review of Systems Review of Systems: CONSTITUTIONAL: Denies fever CARDIOVASCULAR: Reports chest pain. Denies edema. RESPIRATORY: Reports dyspnea. All systems reviewed & are unremarkable except as noted in HPI and below PMFSH Past Medical History Medical History Dizziness Dyslipidemia Seizures Family History Family History Father Heart disease Sibling Seizures Social History Social History Smoking status: Never smoker Second hand tobacco smoke exposure: No Alcohol intake: never Substance use type: prescription drug Gender identity (if verbalized by the patient): Male Spiritual care concerns: No Exam Narrative: GENERAL: Well-appearing, well-nourished, and in no acute distress. HEAD: Normocephalic, atraumatic. EYES: EOMI. ENT: Nares clear, no rhinorrhea or epistaxis. Mucous membranes moist. Oropharynx without tonsillar hypertrophy exudate or other lesions. CHEST: Clear to auscultation. No respiratory distress. No wheezes rales or rhonchi HEART: Regular rate and rhythm. No murmur heard. Normal peripheral pulses. EXTREMITIES: Normal range of motion. No edema. SKIN: Warm, dry, no rash. NEURO: No focal deficits. Alert and oriented x3. PSYCH: Normal mood and affect Course Consultations Consultation #1: Spoke with Dr. Montoya about patient and workup who will follow up in clinic. Date: 09/07/21 Time: 15:04 Vital Signs Vital signs: Vital Signs Temperature 98.7 F 09/07/21 09:35 Pulse Rate 73 09/07/21 09:35 Respiratory Rate 18 09/07/21 09:35 Blood Pressure 129/90 09/07/21 09:35 Pulse Oximetry 96 09/07/21 09:35 Temperature 98.7 F 09/07/21 09:35 Pulse Rate 82 09/07/21 14:15 Respiratory Rate 16 09/07/21 14:15 Blood Pressure 127/81 09/07/21 14:15 Pulse Oximetry 96 09/07/21 14:15 MDM - Chest Pain MDM Narrative Medical decision making narrative: Patient presents to the emergency department for left-sided chest pain starting about an hour prior to arrival. His vitals are normal. Pain does seem to be likely musculoskeletal in nature. It was relieved with muscle relaxer and Tylenol. CBC and metabolic panel without concerning findings. D-dimer is not elevated. Chest x-ray without acute cardiopulmonary abnormality. EKG without acute ST changes. His baseline and 3-hour troponin are negative. His BNP is not elevated. Heart score is a 3. He reports he thinks he had a negative stress test last year. He has been taking
[2021-09-07] MEDS: ASPIRIN 81 MG CHEWABLE TABLET 324 MG PO (09:42)
[2021-09-07 09:49] VITALS: PULSE 72; O2SAT 97
[2021-09-07 09:52] LABS: Basophils Absolute Auto 0.1 K/mm3 (0.0-0.1); Eosinophils Absolute Auto 0.5 K/mm3 (0-0.3); Eosinophils Percent Auto 5.8 % (0-4.4); Hematocrit 45.3 % (42.0-52.0); Hemoglobin 15.6 g/dL (14.0-18.0); Immature Granulocyte Absolute 0.03 K/mm3 (0.00-0.031); Immature Granulocyte Percent A 0.4 % (0-0.5); Lymphocytes Percent Auto 25.4 % (18.3-44.2); Mean Corpuscular HGB Conc 34.4 g/dl (32-36); Mean Corpuscular Hemoglobin 31.1 pg (26-34); Mean Corpuscular Volume 90.2 fl (80-100); Mean Platelet Volume 10.2 fl (7.4-10.4); Monocytes Absolute Auto 0.6 K/mm3 (0.1-0.6); Monocytes Percent Auto 7.1 % (2.6-8.5); Neutrophils Absolute Auto 4.8 K/mm3 (1.3-6.7); Neutrophils Percent Auto 60.3 % (45.5-73.1); Platelet Count Result 242 k/mm3 (150-375); Red Blood Count 5.02 M/mm3 (4.6-6.20); Red Cell Distribution Width 12.3 % (11.5-14.5); White Blood Count 7.9 K/mm3 (4.5-10.0)
[2021-09-07 10:01] LABS: Alanine Aminotransferase 20 U/L (4-50); Albumin Level 4.6 g/dL (3.5-5.1); Alkaline Phosphatase 102 U/L (38-126); Anion Gap 6 mmol/L (8-16); Aspartate Amino Transferase 21 U/L (17-59); Bilirubin,Total 0.6 mg/dL (0.2-1.3); Blood Urea Nitrogen 18 mg/dL (9-20); Calcium 9.2 mg/dL (8.4-10.2); Carbon Dioxide 29 mmol/L (22-30); Chloride 105 mmol/L (98-107); Estimated CRCL calculation 56 ml/min; Estimated Glomerular Filt Rate > 60; Glucose 110 mg/dL (65-110); Lipase 112 U/L (23-300); Potassium 3.6 mmol/L (3.4-5.0); Prothrombin Time 13.2 Seconds (11.1-14.7); Sodium 140 mmol/L (137-145)
[2021-09-07] MEDS: MORPHINE SULFATE (*CRX) 4 MG/ML INJ IV PUSH (10:06)
[2021-09-07] MEDS: ONDANSETRON INJ 4 MG/2 ML VIAL IV PUSH (10:06)
[2021-09-07 10:13] LABS: Troponin I < 0.012 ng/mL (0.000-0.034)
[2021-09-07 10:19] LABS: NT Pro B Type Natriuretic Pept 43 pg/mL (5-100)
[2021-09-07 10:20] LABS: D Dimer < 0.22 ug/mL (<0.48)
[2021-09-07 12:07] VITALS: BP 132/82; PULSE 66; RESP 19; O2SAT 99
[2021-09-07] MEDS: diazePAM INJ (*CRX) 10 MG/2 ML SYRINGE 5 MG IV PUSH (12:23)
[2021-09-07 12:54] LABS: Troponin I < 0.012 ng/mL (0.000-0.034)
[2021-09-07 14:15] VITALS: BP 127/81; PULSE 82; RESP 16; O2SAT 96
== END 2021-09-07 15:30 | disposition home or self-care (01) ==
PROVIDERS: Physician Assistant; Emergency Provider Emergency Medicine; PCP Internal Medicine
DX: R07.9 Chest pain, unspecified (principal); E78.5 Hyperlipidemia, unspecified; Z79.82 Long term (current) use of aspirin
CPT/HCPCS: 36415; 71046; 80053; 83690; 83880; 84484; 85025; 85380; 85610; 85730; 93005; 96365; 96375; 99284; A9270; J0131; J2270; J2405; J3360

== ENCOUNTER 2021-09-07 23:29 | Observation (INO) | payer OTHER, SELFPAY ==
--- NOTE | ~2021-09-07 | NM_ITS ---
EXAMINATION: NM tiff stress w perfusion DATE: 09/09/2021 09:41 INDICATION: Chest pain. TECHNIQUE: Rest images were obtained following intravenous administration of 11.11 mCi Tc99m tetrofos min (Myoview). The patient was infused intravenously with Lexiscan (regadenoson). Then, 32.2 mCi Tc99 m tetrofosmin (Myoview) was administered intravenously, and stress images were obtained. Data was rec onstructed into short axis and horizontal and vertical long axis SPECT images. Gated SPECT images wer e also obtained. COMPARISON: None. FINDINGS: There is no definite reversible or fixed perfusion abnormality to suggest ischemia or infar ction. There is no segmental wall motion abnormality. Left ventricular ejection fraction measures 6 9%. IMPRESSION: 1. No definite ischemia or infarct. 2. Normal left ventricular ejection fraction measuring 69%. Reviewed, dictated and finalized at location [facility]. PROCESS DEPLOYMENT CONSULTANT
--- NOTE | ~2021-09-07 | CT_ITS ---
EXAMINATION: CT brain wo con DATE: 09/07/2021 23:55 INDICATION: Headache. TECHNIQUE: Computed tomography (CT) of the head was performed without intravenous contrast. The mA wa s adjusted according to patient size. Iterative reconstruction technique was employed. The dose-lengt h product was 681.00 mGy-cm. COMPARISON: Head CT 07/10/2021 FINDINGS: There is no intracranial hemorrhage, acute infarction, or abnormal intracranial mass lesion . The ventricles are normal in size. There is mild mucosal thickening in the paranasal sinuses. There is thickening and sclerosis of the tam of right maxillary sinus, consistent with chronic sinusitis . The mastoid air cells are normal. The orbits are normal. IMPRESSION: 1. Normal brain. 2. Chronic sinusitis. Reviewed, dictated and finalized at location [facility]. BUILDER
--- NOTE | ~2021-09-07 | US_ITS ---
EXAMINATION: US right upper quadrant DATE: 09/08/2021 15:05 INDICATION: Right upper quadrant pain TECHNIQUE: Multiple grayscale and Doppler ultrasound images of the abdomen were obtained. COMPARISON: CT, 06/19/2021 FINDINGS: The visualized portions of the pancreas are normal. The liver is normal with normal echogen icity and echotexture. No surface nodularity. Normal hepatopetal flow in the main portal vein. The ga llbladder is normal with no abnormal wall thickening, pericholecystic fluid or stones. The normal com mon bile duct measures 4 mm. There was no sonographic Aleman sign. IMPRESSION: 1. Normal sonographic study of the gallbladder. Reviewed, dictated and finalized at location B. AND CO FOUNDER
[2021-09-07 23:27] VITALS: BP 131/80; PULSE 104; RESP 24; TEMP 37.4; O2SAT 96
--- NOTE | 2021-09-07 23:39 | ECG_ITS ---
Measurements Intervals [place] Rate: 106 P: 31 ID: [id number] QRS: 41 QRSD: 87 T: 30 QT: 296 QTc: 394 Interpretive Statements SINUS TACHYCARDIA BORDERLINE ECG COMPARED TO ECG 09/07/2021 09:39:35 SINUS TACHYCARDIA NOW PRESENT Electronically Signed On 09-08-2021 14:02:56 PLANT ATTENDANT by Mian Grace M.D.
--- NOTE | 2021-09-07 23:47 | ED.GENADULT ---
HPI - General Adult General Chief complaint: Unspecified Stated complaint: d/c earlier - same chills and tremor Time Seen by Provider: 09/07/21 23:38 Source: patient Mode of arrival: EMS Limitations: no limitations History of Present Illness HPI narrative: Patient is a 56-year-old male complaining of chest pain, left chest, 8 out of 10, tightness, radiating to left upper extremity accompanied by tremor, chills and headache that started today. Patient was seen here in the emergency room today for the same complaints was discharged after his second set of troponin being normal, and a low heart score of 3. Patient states that he was advised to return to the emergency room if his symptoms worsens. Patient states that he did not have a headache earlier. Patient states that his headache is a 6 out of 10, generalized, dull, nonradiating. Patient denies any speech or visual disturbance, focal weakness, dizziness, or unsteady gait. Patient denies any shortness of breath, abdominal pain, nausea, vomiting, diaphoresis, fever or chills. Related Data Home Medications Medication Instructions Recorded Confirmed meclizine 25 mg PO TID PRN 09/25/20 07/11/21 atorvastatin 40 mg PO DAILY 12/25/20 07/11/21 omeprazole 20 mg PO BID PRN 07/11/21 07/11/21 aspirin [Aspirin Child] 81 mg PO DAILY 09/07/21 Allergies Allergy/AdvReac Type Severity Reaction Status Date / Time atenolol AdvReac Hypotension Verified 07/10/21 20:14 Review of Systems Review of Systems: All systems reviewed & are unremarkable except as noted in HPI and below Constitutional: Constitutional: Denies body ache(s), Denies chills, Denies excessive sweating, Denies fatigue, Denies fever(s), Denies headache(s), Denies lethargy, Denies malaise, Denies weakness and Denies weight loss Eyes: Eyes: Denies blurry vision, Denies change in vision and Denies loss of vision ENT: Denies dizziness, Denies ear discharge, Denies headache(s), Denies lip swelling, Denies epistaxis, Denies nasal congestion, Denies neck pain, Denies throat swelling and Denies tongue swelling Cardiovascular: Cardiovascular: Denies diaphoresis, Denies rapid heart rate, Denies edema, Denies irregular heart rhythm, Denies lightheadedness, Denies palpitations, Denies dyspnea and Denies dyspnea on exertion Respiratory: Respiratory: Denies chest congestion, Denies cough, Denies hemoptysis, Denies dyspnea and Denies dyspnea on exertion Gastrointestinal: Gastrointestinal: Denies abdominal pain, Denies melena, Denies hematochezia, Denies diarrhea, Denies nausea, Denies vomiting and Denies hematemesis Musculoskeletal: Musculoskeletal: Denies abnormal gait, Denies deformity, Denies joint swelling, Denies limited range of motion, Denies neck pain and Denies numbness Neurologic: Denies Abnormal speech present, Denies abnormal gait, Denies confusion, Denies dizziness, Denies headache(s), Denies focal weakness, Denies loss of vision, Denies Other visual disturbances, Denies Sensory deficit (Neuro) and Denies weakness Comments: Left upper extremity numbness Psychiatric: Psychiatric: Denies confusion, Denies depression, Denies auditory hallucinations, Denies homicidal ideation and Denies suicidal ideation Endocrine: Endocrine: Denies cold intolerance, Denies excessive sweating, Denies fatigue, Denies heat intolerance and Denies palpitations Hematologic/Lymphatic: Hematologic/Lymphatic: Denies easy bleeding and Denies easy bruising Allergic/Immunologic: Allergic/Immunologic: Denies lip swelling, Denies throat swelling and Denies tongue swelling PMFSH Past Medical History Medical History Dizziness Dyslipidemia Seizures Family History Family History Father Heart disease Sibling Seizures Social History Social History Smoking status: Never smoker Second hand tobacc
[2021-09-08] VITALS (26 sets, daily range): BP systolic 108–135; BP diastolic 56–82; PULSE 63–131; RESP 16–34; TEMP 36.4–37.7; O2SAT 92–100; BMI 25.5
--- NOTE | 2021-09-08 | ECHO_ITS ---
Patient Info Name: Venu Garcia Age: 56 years : 1965 Gender: Male Ht: 66 in Wt: 158 lbs BSA: 1.84 m2 HR: 103 bpm BP: 119 / 60 mmHg Heart Rhythm: Sinus Rhythm Technical Quality: Fair Exam Date: 09/08/2021 9:30 AM Exam Location: [facility] Patient Status: Outpatient Admit Date: 09/08/2021 Staff Ordering Physician: Primo Rick MD Motorcycle Racer: Geena Chávez RDCS Attending Provider: Primo Rick MD Referring Physician: Merline KING; Exam Type: CA echo doppler color flow Study Info Indications - chest pain Complete two-dimensional, color flow and Doppler transthoracic echocardiogram is performed. Summary 1. Complete two-dimensional, color flow and Doppler transthoracic echocardiogram is performed. 2. Left ventricular chamber dimension is normal. 3. Left ventricular systolic function is normal, estimated at 60-65%. 4. The left ventricular diastolic function is grade II diastolic dysfunction. 5. E/e' 6 is not elevated. 6. No pulmonary hypertension, estimated pulmonary arterial systolic pressure is 17 mmHg. Left Ventricle E/e' 6 is not elevated. Left ventricular chamber dimension is normal. Left ventricular systolic function is normal, estimated at 60-65%. The left ventricular diastolic function is grade II diastolic dysfunction. Right Ventricle Right ventricular systolic function is normal and with normal TAPSE 2.0 cm. Right ventricular chamber dimension is normal. Left Atria Left atrial chamber dimension is normal. Right Atria Right atrial chamber dimension is normal. Aortic Valve The aortic valve is trileaflet. There is no aortic valve stenosis. There is no aortic valve regurgitation. Pulmonic Valve There is no pulmonic regurgitation. Mitral Valve There is no mitral valve stenosis. There is no mitral valve regurgitation. Tricuspid Valve There is no tricuspid valve regurgitation. No pulmonary hypertension, estimated pulmonary arterial systolic pressure is 17 mmHg. Pericardium/Pleural There is no pericardial effusion. Inferior Vena Cava Normal inferior vena cava with >50% collapse upon inspiration consistent with normal right atrial pressure, 5 mmHg. Aorta The aortic root size at the sinus of Valsalva is normal. Left Ventricular Outflow Tract Name Value Normal LVOT 2D LVOT Diameter 2.0 cm LVOT Doppler LVOT Peak Gradient 5 mmHg LVOT Mean Gradient 2 mmHg LVOT VTI 16 cm LVOT VTI/AV VTI Ratio 0.7 LVOT Stroke Volume 52 ml LVOT CO 4.1 l/min LVOT CI 2.2 l/min/m2 Pulmonic Valve Name Value Normal RVOT Doppler RVOT Peak Gradient 2 mmHg
[2021-09-08 00:11] LABS: Basophils Absolute Auto 0.1 K/mm3 (0.0-0.1); Basophils Percent Auto 0.6 % (0.2-1.2); Eosinophils Absolute Auto 0.2 K/mm3 (0-0.3); Eosinophils Percent Auto 1.9 % (0-4.4); Hematocrit 45.7 % (42.0-52.0); Hemoglobin 15.1 g/dL (14.0-18.0); Immature Granulocyte Absolute 0.02 K/mm3 (0.00-0.031); Immature Granulocyte Percent A 0.2 % (0-0.5); Lymphocytes Absolute Auto 0.97 K/mm3 (0.9-3.2); Lymphocytes Percent Auto 9.9 % (18.3-44.2); Mean Corpuscular Hemoglobin 31.2 pg (26-34); Mean Corpuscular Volume 94.4 fl (80-100); Mean Platelet Volume 10.3 fl (7.4-10.4); Monocytes Absolute Auto 0.3 K/mm3 (0.1-0.6); Monocytes Percent Auto 2.9 % (2.6-8.5); Neutrophils Absolute Auto 8.3 K/mm3 (1.3-6.7); Neutrophils Percent Auto 84.5 % (45.5-73.1); Platelet Count Result 241 k/mm3 (150-375); Red Blood Count 4.84 M/mm3 (4.6-6.20); Red Cell Distribution Width 12.5 % (11.5-14.5); White Blood Count 9.8 K/mm3 (4.5-10.0)
[2021-09-08 00:20] LABS: Alanine Aminotransferase 17 U/L (4-50); Albumin Level 4.4 g/dL (3.5-5.1); Alkaline Phosphatase 83 U/L (38-126); Anion Gap 9 mmol/L (8-16); Aspartate Amino Transferase 21 U/L (17-59); Bilirubin,Total 0.8 mg/dL (0.2-1.3); Blood Urea Nitrogen 24 mg/dL (9-20); Calcium 9.1 mg/dL (8.4-10.2); Carbon Dioxide 29 mmol/L (22-30); Chloride 103 mmol/L (98-107); Estimated CRCL calculation 59 ml/min; Estimated Glomerular Filt Rate > 60; Glucose 95 mg/dL (65-110); Potassium 3.7 mmol/L (3.4-5.0); Sodium 141 mmol/L (137-145)
[2021-09-08 00:24] LABS: INR 1.1; Prothrombin Time 13.5 Seconds (11.1-14.7)
[2021-09-08 00:25] LABS: Partial Thromboplastin Time 24.5 SECONDS (22.3-36.8)
[2021-09-08 00:31] LABS: Troponin I < 0.012 ng/mL (0.000-0.034)
--- NOTE | 2021-09-08 01:00 | PM.IMHP ---
H&P: HPI History of Present Illness Date/Time: 09/08/21 01:00 Chief Complaint: Chest pain Narrative: This is a 56-year-old male with past medical history significant for GERD, seizure disorder, dyslipidemia. Patient presents to the emergency room for the 2nd time due to chest pain which is retrosternal radiating to the left shoulder and arm and to the back as well to the scapula, patient denies any chest pain with exertion on, he denies any cough, sputum production, any nausea,vomiting, abdominal pain or diarrhea, no PND, no orthopnea, no leg swelling, no palpitations, no dizziness, no lightheadedness, no syncope or near syncope, no fevers, no rigors, no chills, no cough, no sputum production, no calves pain, no vision changes, no headaches, no neck pain. Patient was 1st evaluated and sent home from the emergency room but patient returned due to recurrence of the pain. Preliminary workup has been essentially nonrevealing. Patient is being admitted for further evaluation management and treatment. Review of Systems Review of Systems: Retrosternal chest pain with radiation to did reji left shoulder and arm and today back to the scapula Constitutional: Constitutional: Denies chills, Denies fatigue, Denies fever(s), Denies night sweats and Denies weakness Eyes: Eyes: Denies change in vision ENT: Denies dysphagia, Denies vertigo, Denies dizziness, Denies nasal congestion, Denies nasal discharge, Denies nasal obstruction and Denies odynophagia Cardiovascular: Cardiovascular: Reports chest pain, Reports chest pain at rest, Denies chest pain with activity, Denies diaphoresis, Denies syncope, Denies pedal edema, Denies edema, Denies irregular heart rhythm, Denies claudication, Denies leg ulcers, Denies leg edema, Denies lightheadedness, Denies radiating jaw, neck or arm pain, Denies palpitations, Denies dyspnea on exertion, Denies orthopnea and Denies paroxysmal nocturnal dyspnea Respiratory: Respiratory: Denies cough, Denies excessive phlegm production, Denies dyspnea and Denies wheezing Gastrointestinal: Gastrointestinal: Denies abdominal pain, Denies dyspepsia, Denies nausea, Denies odynophagia and Denies vomiting Genitourinary: Genitourinary: Denies dysuria and Denies flank pain Musculoskeletal: Musculoskeletal: Denies arthralgias, Denies joint swelling and Denies muscle weakness Integumentary/Breasts: Skin/Breast: Denies rash Neurologic: Denies focal weakness and Denies Sensory deficit (Neuro) Psychiatric: Psychiatric: Reports no additional psychiatric complaints and Reports as per HPI Endocrine: Endocrine: Denies cold intolerance, Denies heat intolerance, Denies increase in ring/shoe/hat size, Denies polyphagia, Denies polydipsia and Denies palpitations Hematologic/Lymphatic: Hematologic/Lymphatic: Reports no additional hematologic/lymphatic complaints and Reports as per HPI Allergic/Immunologic: Allergic/Immunologic: Reports no additional allergic/immunologic complaints and Reports as per HPI PMFSH Past Medical History Medical History Dizziness Dyslipidemia Seizures Family History Family History Father Heart disease Sibling Seizures Social History Social History Smoking status: Never smoker Second hand tobacco smoke exposure: No Alcohol intake: never Substance use: never Substance use type: prescription drug Gender identity (if verbalized by the patient): Male Spiritual care concerns: No Meds Home Medications and Allergies Home Medications Medication Instructions Recorded Confirmed Type atorvastatin 40 mg PO DAILY 12/25/20 09/08/21 History levetiracetam 1,000 mg tablet 1,000 mg PO BID #60 tablet 01/31/21 09/08/21 Rx omeprazole 20 mg PO BID PRN 07/11/21 09/08/21 History aspirin [Aspirin Child] 81 mg PO DAILY 09/07/21 09/08/21 History
--- NOTE | 2021-09-08 02:09 | ADMGEN ---
This patient, Venu Garcia, was admitted to -. Patient/family oriented to hospital policies and general routines including ID bracelet, bed and alarms, visiting hours, pain management, procedures, bathroom and other care routines, personal items, smoking policy, room service/diet, and visiting hours. Information on how to activate the Rapid Response Team has been discussed. Patient/Family are encouraged to report perceived risks to care and to ask questions if they do not understand what they are told or what they should do.
--- NOTE | 2021-09-08 02:10 | ADMGEN ---
This patient, Venu Garcia, was admitted to IMU Room 210-01. Patient/family oriented to hospital policies and general routines including ID bracelet, bed and alarms, visiting hours, pain management, procedures, bathroom and other care routines, personal items, smoking policy, room service/diet, and visiting hours. Information on how to activate the Rapid Response Team has been discussed. Patient/Family are encouraged to report perceived risks to care and to ask questions if they do not understand what they are told or what they should do.
[2021-09-08 03:48] LABS: Troponin I < 0.012 ng/mL (0.000-0.034)
[2021-09-08 06:16] LABS: Troponin I < 0.012 ng/mL (0.000-0.034)
[2021-09-08] MEDS: ASPIRIN 81 MG CHEWABLE TABLET PO (08:05)
[2021-09-08] MEDS: levETIRAcetam 500 MG TABLET 1000 MG PO ×2 (08:05→17:06)
[2021-09-08] MEDS: ATORVASTATIN 40 MG TABLET PO (08:06)
--- NOTE | 2021-09-08 08:45 | PM.IMPN ---
Progress Note: A&P Assessment and Plan (1) Chest pain in adult: Code(s): R07.9 - Chest pain, unspecified Status: Acute Assessment and Plan: Troponins negative x 5 Chest xray indicates no acute abnormality ECHO from 09/08/21 EF of 60-65% with grade 2 diastolic dysfunction EKG showed SR Tele monitor Cardiology consulted thank you for your help Continue daily aspirin, atorvastatin 40mg PO Daily RUQ shows normal gallbladder ultrasound Michaelle scan ordered for today (2) Seizures: Code(s): R56.9 - Unspecified convulsions Status: Acute Assessment and Plan: Continue Keppra Seizure-free Continue to monitor (3) KAROL (obstructive sleep apnea): Code(s): G47.33 - Obstructive sleep apnea (adult) (pediatric) Status: Acute Assessment and Plan: Continue CPAP at nighttime. (4) Hyperlipidemia: Code(s): E78.5 - Hyperlipidemia, unspecified Status: Acute Assessment and Plan: Continue home medications Subjective Date/time seen: 09/08/21 0845 Interval history: Date/Time: 09/08/21 01:00 Narrative: This is a 56-year-old male with past medical history significant for GERD, seizure disorder, dyslipidemia. Patient presents to the emergency room for the 2nd time due to chest pain which is retrosternal radiating to the left shoulder and arm and to the back as well to the scapula, patient denies any chest pain with exertion on, he denies any cough, sputum production, any nausea,vomiting, abdominal pain or diarrhea, no PND, no orthopnea, no leg swelling, no palpitations, no dizziness, no lightheadedness, no syncope or near syncope, no fevers, no rigors, no chills, no cough, no sputum production, no calves pain, no vision changes, no headaches, no neck pain. Patient was 1st evaluated and sent home from the emergency room but patient returned due to recurrence of the pain. Preliminary workup has been essentially nonrevealing. Patient is being admitted for further evaluation management and treatment. Date/Time 09/08/21 0845 Patient lying in bed eating breakfast. Patient stated that he was short of breath with activity and walking to the bathroom he is very winded. Patient stated that his chest pain is starting in the left side mid clavicular line and radiates up to his neck down his shoulders. He also stated that he is having some weakness and fatigue. Patient stated that he was here 1st time yesterday and they gave some medications for it would help however when he woke back up he was back to the same. Patient also claims have chills so she throughout the night. He also stated that his appetite is terrible however he denies sweats, fevers, nausea, vomiting, abdominal pain, urinary dysfunction. It was noted that patient did have a positive Aleman sign or and pain when palpating the right upper quadrant. The pain was so bad that the patient almost jumped out of bed. Review of Systems Review of Systems: All systems reviewed & are unremarkable except as noted in HPI and below Exam Const: General: cooperative, comfortable, no acute distress, well developed, alert, awake, Physically active and other (Well-appearing) Nutritional Appearance: average body habitus Orientation/consciousness: patient oriented x3 HENMT: Head: normal to inspection, normocephalic and atraumatic Ears: hearing grossly normal bilaterally General nose exam: Normal external nose present Face and sinus: normal facial exam Mouth: Yes Normal oral and palatal mucosa present Eyes: General: appearance normal, both eyes and all related structures Alignment and Position: alignment normal Sclera: sclerae normal Pupils: Equal, round and reactive pupils present EOM: EOMs intact bilaterally Neck: Neck: normal visual inspection, full ROM, no lymphadenopathy, supple and no JVD Thyroid: thyroid normal Lymphatic: no lymphadenopathy noted Resp: Effort & Inspection: normal resp
--- NOTE | 2021-09-08 17:27 | PM.CNCAR ---
Assessment and Plan Assessment and plan (1) Chest pain in adult: Code(s): R07.9 - Chest pain, unspecified Status: Acute Assessment and Plan: Probably musculoskeletal pains. R/o for [place] by serial troponin and EKG. Echo shows grade II diastolic dysfunction. Obtain lexiscan myoview stress test. If normal, may d/c home from cardiology standpoint. He has a health insurance that [facility] does not accept and that is [employer]. He would have to f/u with his PCP and referred to a different cardiology group if needed. (2) Hyperlipidemia: Code(s): E78.5 - Hyperlipidemia, unspecified Status: Acute Assessment and Plan: Advise to maintain a low saturated fat diet. On Atorvastatin. History of Present Illness History of Present Illness Consult date/time: 09/08/21 17:27 Chest pain. 56 yr old man admitted for cp. He has a history of Seizures, GERD and dyslipidemia. I saw him on consultation in Jul 2021 when he presented with chest pain and syncope. He presents this time with intermittent chest tightness at rest and sharp chest pain radiating to his left shoulder with exertion. Reports that he was at work and walking when he had very sharp chest pain radiating from left rib to his head. He can walk 1/2 mile without any problems. No prior cp or syncope. No recurrence of symptoms and no dizziness. He drinks plenty of water about a case of water bottles a week. EKG: Sinus rhythm. CT brain is normal. Echo is OK with EF 60-65%, grade II diastolic dysfunction (E/e' 7), trace PI. Troponin negative. CBC, CMP are normal. Reason For Visit: chest pain Review of Systems Review of Systems: All systems reviewed & are unremarkable except as noted in HPI and below Constitutional: Constitutional: Reports as per HPI, Denies chills and Denies fever(s) Cardiovascular: Cardiovascular: Reports as per HPI, Reports chest pain, Denies irregular heart rhythm, Denies leg edema and Denies lightheadedness Respiratory: Respiratory: Reports as per HPI and Denies dyspnea Gastrointestinal: Gastrointestinal: Reports as per HPI and Denies abdominal pain Genitourinary: Genitourinary: Reports as per HPI and Denies dysuria Musculoskeletal: Musculoskeletal: Reports as per HPI Neurologic: Reports as per HPI, Denies dizziness and Denies syncope PMFSH Past Medical History Medical History Dizziness Dyslipidemia Seizures Family History Family History Father Heart disease Sibling Seizures Social History Social History Smoking status: Never smoker Second hand tobacco smoke exposure: No Alcohol intake: never Substance use: never Substance use type: prescription drug Gender identity (if verbalized by the patient): Male Spiritual care concerns: No Meds Home Medications and Allergies Home Medications Medication Instructions Recorded Confirmed Type atorvastatin 40 mg PO DAILY 12/25/20 09/08/21 History levetiracetam 1,000 mg tablet 1,000 mg PO BID #60 tablet 01/31/21 09/08/21 Rx omeprazole 20 mg PO BID PRN 07/11/21 09/08/21 History aspirin [Aspirin Child] 81 mg PO DAILY 09/07/21 09/08/21 History Allergies Allergy/AdvReac Type Severity Reaction Status Date / Time atenolol AdvReac Hypotension Verified 07/10/21 20:14 Vital Signs Vital Signs - 24 hr 09/07/21 23:27 09/08/21 00:03 09/08/21 00:07 Temperature 99.4 F Pulse Rate 104 H 111 H Respiratory Rate 24 H 22 H 28 H Blood Pressure 131/80 Pulse Oximetry 96 93 09/08/21 00:10 09/08/21 00:11 09/08/21 00:30 Temperature Pulse Rate 104 H 105 H 105 H Respiratory Rate 34 H 32 H 28 H Blood Pressure 135/82 Pulse Oximetry 92 92 92 09/08/21 01:00 09/08/21 01:01 09/08/21 01:30 Temperature 99.4 F Pulse Rate 101 H 101 H 96 Respiratory Rate 30 H 31 H 24 H Blood Pre
[2021-09-09] VITALS (8 sets, daily range): BP systolic 102–110; BP diastolic 61–69; PULSE 60–79; RESP 16–18; TEMP 36.5–36.8; O2SAT 94–99
--- NOTE | 2021-09-09 | EST_ITS ---
Patient Info Name: Venu Garcia Age: 56 years : 1965 Gender: Male Ht: 66 in Wt: 158 lbs BSA: 1.84 m2 HR: 69 bpm BP: 119 / 70 mmHg Heart Rhythm: Sinus Rhythm Exam Date: 09/09/2021 8:28 AM Exam Location: [facility] Patient Status: Outpatient Admit Date: 09/08/2021 Staff Ordering Physician: Deondre Montoya DO Attending Provider: Primo Rick MD Exercise Technologist: Nilda Denton CT Exercise Physician: Deondre Montoya DO Exam Type: CA stress tiff w NM Study Info Indications R07.9 - Chest pain, unspecified A regadenoson stress test was performed. Summary 1. 1. Negative lexiscan stress test for ischemic ST changes by ECG criteria. 2. 2. Stable hemodynamics throughout the test. 3. 3. Nuclear scan to follow and will be reported separately. Please correlate with it. 4. 4. Patient informed of the above results. Protocol: Lexiscan Stress ECG Details Stage: REST Duration (min): 1 min : 11 sec HR (bpm): 70 SBP (mmHg): 119 DBP (mmHg): 70 Stage: REST Duration (min): 1 min : 48 sec HR (bpm): 71 SBP (mmHg): 119 DBP (mmHg): 70 Stage: REST Duration (min): 7 min : 17 sec HR (bpm): 70 SBP (mmHg): 119 DBP (mmHg): 70 Stage: STAGE 1 Duration (min): 1 min : 0 sec HR (bpm): 98 SBP (mmHg): 116 DBP (mmHg): 69 Stage: RECOVERY Duration (min): 1 min : 0 sec HR (bpm): 86 SBP (mmHg): 116 DBP (mmHg): 69 Stage: RECOVERY Duration (min): 2 min : 0 sec HR (bpm): 81 SBP (mmHg): 116 DBP (mmHg): 69 Stage: RECOVERY Duration (min): 3 min : 0 sec HR (bpm): 80 SBP (mmHg): 116 DBP (mmHg): 71 Stage: RECOVERY Duration (min): 3 min : 1 sec HR (bpm): 81 SBP (mmHg): 116 DBP (mmHg): 71 Rest HR: 70 bpm Peak HR: 98 bpm Rest Sys BP: 119 mmHg Peak Sys BP: 116 mmHg Max Pred HR: 165 bpm % Max Pred HR: 59 % Target HR: 140 bpm Max RPP: 11,368 bpm*mmHg Termination Reason: Completed protocol Cardiac Symptoms: Shortness of breath Total Time: 1 min : 0 sec Rest Julio BP: 70 mmHg Peak Julio BP: 71 mmHg Total Dose: 0.4 mg Resting ECG Sinus rhythm. Stress ECG No ST changes. Arrhythmias None. Report Signatures
[2021-09-09 05:15] LABS: Basophils Absolute Auto 0.1 K/mm3 (0.0-0.1); Basophils Percent Auto 0.7 % (0.2-1.2); Eosinophils Absolute Auto 0.6 K/mm3 (0-0.3); Eosinophils Percent Auto 4.8 % (0-4.4); Hematocrit 41.8 % (42.0-52.0); Hemoglobin 13.9 g/dL (14.0-18.0); Immature Granulocyte Absolute 0.05 K/mm3 (0.00-0.031); Immature Granulocyte Percent A 0.4 % (0-0.5); Lymphocytes Absolute Auto 2.06 K/mm3 (0.9-3.2); Lymphocytes Percent Auto 17.3 % (18.3-44.2); Mean Corpuscular HGB Conc 33.3 g/dl (32-36); Mean Corpuscular Hemoglobin 31.1 pg (26-34); Mean Corpuscular Volume 93.5 fl (80-100); Mean Platelet Volume 10.7 fl (7.4-10.4); Monocytes Absolute Auto 0.9 K/mm3 (0.1-0.6); Monocytes Percent Auto 7.4 % (2.6-8.5); Neutrophils Absolute Auto 8.2 K/mm3 (1.3-6.7); Neutrophils Percent Auto 69.4 % (45.5-73.1); Platelet Count Result 223 k/mm3 (150-375); Red Blood Count 4.47 M/mm3 (4.6-6.20); Red Cell Distribution Width 12.5 % (11.5-14.5); White Blood Count 11.9 K/mm3 (4.5-10.0)
[2021-09-09 05:30] LABS: Alanine Aminotransferase 15 U/L (4-50); Alkaline Phosphatase 79 U/L (38-126); Anion Gap 6 mmol/L (8-16); Aspartate Amino Transferase 19 U/L (17-59); Bilirubin,Total 0.5 mg/dL (0.2-1.3); Blood Urea Nitrogen 14 mg/dL (9-20); Calcium 8.9 mg/dL (8.4-10.2); Carbon Dioxide 28 mmol/L (22-30); Chloride 104 mmol/L (98-107); Estimated CRCL calculation 67 ml/min; Estimated Glomerular Filt Rate > 60; Glucose 89 mg/dL (65-110); Magnesium 2.1 mg/dL (1.6-2.3); Potassium 3.5 mmol/L (3.4-5.0); Sodium 138 mmol/L (137-145)
--- NOTE | 2021-09-09 08:52 | PM.PNCARD ---
Progress Note: A&P Assessment and Plan (1) Chest pain in adult: Code(s): R07.9 - Chest pain, unspecified Status: Acute Assessment and Plan: Probably musculoskeletal pains. R/o for [place] by serial troponin and EKG. Echo shows grade II diastolic dysfunction. Obtain lexiscan myoview stress test. If normal, may d/c home from cardiology standpoint. He has a health insurance that [facility] does not accept and that is [employer]. He would have to f/u with his PCP and referred to [facility] if needed. (2) Hyperlipidemia: Code(s): E78.5 - Hyperlipidemia, unspecified Status: Acute Assessment and Plan: Advise to maintain a low saturated fat diet. On Atorvastatin. Subjective Date/time seen: 09/09/21 08:52 Reports chest pain when he lifted his arms up for nuclear pictures. No sob. Exam Const: General: cooperative, healthy appearing and comfortable Resp: Auscultation: clear to auscultation bilaterally, no crackles, no rales, no rhonchi and no wheezes Cardio: Jugular venous distension: no JVD Rate: regular rate Rhythm: regular rhythm Heart sounds: no murmurs GI: GI Palp: No abdominal tenderness and Yes Soft to palpation Neuro: General: oriented to person, oriented to place and oriented to time Extrem: Right lower extremity: no edema Left lower extremity: no edema Objective Data Vital Signs Vital Signs: Vital Signs - 24 hr 09/08/21 10:00 09/08/21 12:00 09/08/21 13:00 Temperature 99.3 F Pulse Rate 93 70 Respiratory Rate 18 Blood Pressure 112/69 125/64 Pulse Oximetry 97 09/08/21 13:07 09/08/21 13:10 09/08/21 14:00 Temperature Pulse Rate 78 Respiratory Rate Blood Pressure 108/61 116/66 Pulse Oximetry 09/08/21 16:00 09/08/21 16:37 09/08/21 18:00 Temperature 99.3 F Pulse Rate 70 85 Respiratory Rate 16 Blood Pressure 110/56 L Pulse Oximetry 96 98 09/08/21 19:54 09/08/21 20:00 09/08/21 21:35 Temperature 97.6 F Pulse Rate 63 63 Respiratory Rate 18 18 Blood Pressure 118/62 Pulse Oximetry 99 99 97 09/08/21 23:16 09/09/21 00:00 09/09/21 04:00 Temperature 97.6 F 97.9 F Pulse Rate 98 63 60 Respiratory Rate 20 18 18 Blood Pressure 116/75 110/61 Pulse Oximetry 97 99 99 09/09/21 08:23 Temperature 98.2 F Pulse Rate 74 Respiratory Rate 18 Blood Pressure 102/65 Pulse Oximetry 94 Intake/Output Intake/Output: Intake & Output 09/06/21 09/07/21 09/08/21 09/09/21 23:59 23:59 23:59 23:59 Intake Total 1100 Output Total 400 500 Balance 700 -500 Meds/Results Medications: Active Medications Generic Name Dose Route Start Last Admin Trade Name Freq PRN Reason Stop Dose Admin Aspirin 81 mg 09/08/21 08:00 09/08/21 08:05 Aspirin 81 Mg Chewable Tablet PO 81 mg DAILY@0800 SARAVANAN Administration Atorvastatin Calcium 40 mg 09/08/21 09:00 09/08/21 08:06 Atorvastatin 40 Mg Tablet PO 40 mg DAILY SARAVANAN Administration Enoxaparin Sodium 40 mg 09/09/21 09:00 Enoxaparin 40 Mg/0.4 Ml Syringe SUB-Q DAILY SARAVANAN Levetiracetam 1,000 mg 09/08/21 09:00 09/08/21 17:06 Levetiracetam 500 Mg Tablet PO 1,000 mg BID SARAVANAN Administration Pantoprazole Sodium 40 mg 09/08/21 04:11 Pantoprazole 40 Mg Tablet PO BID PRN Acid Reflux Perflutren Lipid Microsphere 0 ml 09/08/21 04:11 Perflutren Lipid Microspheres 1.5 Ml Vial Diluted To 10 Ml Total Volume IV PUSH ONCE PRN adequate visualization Protocol Radiology Results: ITS Impressions Head CT 09/08/21 06:47 IMPRESSION: 1. Normal brain. 2. Chronic sinusitis. Upper Quadrant Ultrasound 09/08/21 15:07 IMPRESSION: 1. Normal sonographic study of the gallbladder. Labs Labs: Laboratory Results - last 24 hr 09/09/21 09/09/21 04:28 04:28 WBC 11.9 H RBC 4.47 L Hgb 13.9 L Hct 41.8 L MCV 93.5 MCH 31.1 MCHC 33.3 RDW 12.5 Plt Count 223 MPV 10.7 H Immature Gran % (Auto) 0.4
[2021-09-09] MEDS: ENOXAPARIN 40 MG/0.4 ML SYRINGE SUB-Q (09:37)
[2021-09-09] MEDS: levETIRAcetam 500 MG TABLET 1000 MG PO (09:37)
[2021-09-09] MEDS: ASPIRIN 81 MG CHEWABLE TABLET PO (09:37)
[2021-09-09] MEDS: ATORVASTATIN 40 MG TABLET PO (09:37)
--- NOTE | 2021-09-09 09:45 | PM.DS ---
DS: Admitting Diagnosis Discharge Date 09/09/21 0945 Admitting Diagnosis Pleuritic chest pain DS: Discharge Diagnosis Discharge Diagnosis (1) Chest pain in adult: Code(s): R07.9 - Chest pain, unspecified Status: Acute Assessment and Plan: Troponins negative x 5 Chest xray indicates no acute abnormality ECHO from 09/08/21 EF of 60-65% with grade 2 diastolic dysfunction EKG showed SR Tele monitor Cardiology consulted thank you for your help Continue daily aspirin, atorvastatin 40mg PO Daily RUQ shows normal gallbladder ultrasound Michaelle scan ordered for today (2) Seizures: Code(s): R56.9 - Unspecified convulsions Status: Acute Assessment and Plan: Continue Keppra Seizure-free Continue to monitor (3) KAROL (obstructive sleep apnea): Code(s): G47.33 - Obstructive sleep apnea (adult) (pediatric) Status: Acute Assessment and Plan: Continue CPAP at nighttime. (4) Hyperlipidemia: Code(s): E78.5 - Hyperlipidemia, unspecified Status: Acute Assessment and Plan: Continue home medications DS: Summary Hospital Course Hospital Course: Patient is a 56-year-old male with a past medical history of dyslipidemia, and seizure who presented to the ED with recurring chest pain. Patient stated that his pain was mid clavicular on the left side and radiated up his shoulder into his back. He did have a positive Aleman sign and ultrasound was performed which did show a normal gallbladder. Patient also had a Michaelle stress test which all showed normal with no infarct or ischemia noted. Echo was performed showed grade 2 diastolic dysfunction with an EF of 60 65%. EKG was performed with no abnormalities including ST-elevation which showed sinus rhythm. Tele monitor was also monitored. Cardiology was consulted. Troponins were negative x5. Patient has been taking a daily aspirin and atorvastatin. Vital signs are stable patient is stable along with labs to go home. Patient feels okay today. Nursing had patient up walking which he remains independent. Patient denies any chest pain, shortness of breath, nausea, vomiting, diarrhea, constipation, weakness fatigue. Patient did state that he is hungry since he has been NPO for these tests. Status at Discharge Functional status at discharge: independent ambulation Overall status at discharge: patient is progressing back to baseline Time Spent with Patient Time attestation: Total time spent providing and/or coordinating discharge services:48 minutes Time spent: Greater than 30 minutes Specific discharge activities: Diagnostic testing, chart review, developing a treatment plan, education, care coordination documentation, physical exam, result review Exam Const: General: cooperative, comfortable, no acute distress, well developed, alert, awake, Physically active and other (Well-appearing) Nutritional Appearance: average body habitus Orientation/consciousness: patient oriented x3 HENMT: Head: normal to inspection, normocephalic and atraumatic Ears: hearing grossly normal bilaterally General nose exam: Normal external nose present Face and sinus: normal facial exam Mouth: Yes Normal oral and palatal mucosa present Eyes: General: appearance normal, both eyes and all related structures Alignment and Position: alignment normal Sclera: sclerae normal Pupils: Equal, round and reactive pupils present EOM: EOMs intact bilaterally Neck: Neck: normal visual inspection, full ROM, no lymphadenopathy, supple and no JVD Thyroid: thyroid normal Lymphatic: no lymphadenopathy noted Resp: Effort & Inspection: normal respiratory effort, able to speak in complete sentences and no cough Auscultation: clear to auscultation bilaterally, no crackles, no rales, no rhonchi and no wheezes Cardio: Jugular venous distension: no JVD Rate: regular rate Rhythm: regular rhythm Heart sounds: S1 normal heart sound pr
== END 2021-09-09 15:21 | disposition home or self-care (01) ==
LOC: ANHED 09-08 01:01 → ANHIMU 09-09 14:31
PROVIDERS: Admitting Provider Internal Medicine; Emergency Provider Emergency Medicine; PCP Internal Medicine; Visit Provider Nurse Practitioner
DX: R07.9 Chest pain, unspecified (principal); E78.5 Hyperlipidemia, unspecified; G40.909 Epilepsy, unspecified, not intractable, without status epilepticus; K21.9 Gastro-esophageal reflux disease without esophagitis; G47.33 Obstructive sleep apnea (adult) (pediatric); Z79.51 Long term (current) use of inhaled steroids; Z79.82 Long term (current) use of aspirin
CPT/HCPCS: 36415; 70450; 76705; 78452; 80053; 83735; 84484; 85025; 85610; 85730; 93005; 93017; 93306; 96372; 99285; A9270; A9502; G0379; J1650; J2785

== ENCOUNTER 2021-09-11 21:25 | Emergency (ER) | payer OTHER, SELFPAY ==
--- NOTE | ~2021-09-11 | XR_ITS ---
EXAMINATION: XR chest 1V portable DATE: 09/11/2021 21:43 INDICATION: Chest pain/pressure TECHNIQUE: frontal view of the chest was obtained. COMPARISON: Chest radiograph dated 09/07/2021 FINDINGS: Subtle opacity in the right midlung zone which could represent atelectasis or pneumonia. No pulmonary edema, pleural effusion or pneumothorax. The cardiomediastinal silhouette is normal. IMPRESSION: 1. Subtle opacities in the right midlung zone which could represent atelectasis or pneumonia. Reviewed, dictated and finalized at location A. TROLOG OPERATOR
[2021-09-11 21:26] VITALS: BP 115/86; PULSE 77; RESP 14; TEMP 37; O2SAT 98
--- NOTE | 2021-09-11 21:33 | ECG_ITS ---
Measurements Intervals [place] Rate: 79 P: 35 NH: 150 QRS: 58 QRSD: 93 T: 46 QT: 358 QTc: 410 Interpretive Statements SINUS RHYTHM WITH SINUS ARRHYTHMIA NORMAL ECG COMPARED TO ECG 09/08/2021 00:05:03 SINUS RHYTHM NOW PRESENT SINUS ARRHYTHMIA NOW PRESENT Electronically Signed On 09-12-2021 7:12:48 ATHLETIC AGENT by Arsalan Gray M.D.
--- NOTE | 2021-09-11 21:34 | ED.CHESTPAIN ---
HPI - Chest Pain General Chief Complaint: Chest Pain Stated Complaint: CHEST PRESSURE, SOB Source: RN notes reviewed History of Present Illness HPI narrative: Patient presents emergency department from home via EMS for chest pain. Patient states symptoms feel approximate 45 minutes ago he said he sitting in bed when he developed left-sided chest pain pain was described as a pressure and rating the left arm and into the upper chest associated with shortness of breath. Patient called EMS at that time was given nitro and aspirin states the pain is improved at this time patient states he does have a history of heart attack proximately 6 years ago but had no stent placement states he just saw Dr. Montoya for cardiology this past week denies any fevers or chills abdominal pain nausea vomiting or any other symptoms Related Data Allergies Allergy/AdvReac Type Severity Reaction Status Date / Time atenolol AdvReac Hypotension Verified 07/10/21 20:14 Review of Systems Review of Systems: Gen.: Denies fevers or chills ENT: Denies congestion Respiratory: Reports shortness of breath or chest pain CV: See HPI GI: Denies abdominal pain nausea, emesis or diarrhea denies burning, urgency, frequency or hematuria Musculoskeletal: Denies back pain or muscle pain Neuro: Denies numbness, tingling, weakness or focal weakness Skin: Denies rash Except as documented, all other systems reviewed and negative PMFSH Past Medical History Medical History Dizziness Dyslipidemia Seizures Family History Family History Father Heart disease Sibling Seizures Social History Social History Smoking status: Never smoker Second hand tobacco smoke exposure: No Alcohol intake: never Substance use: never Substance use type: prescription drug Gender identity (if verbalized by the patient): Male Spiritual care concerns: No Exam Narrative: APPEARANCE: No acute distress, nontoxic, resting in bed EYES: EOMI HEENT: Normocephalic, atraumatic, OMM RESPIRATORY: No respiratory distress Clear to auscultation bilaterally with no rhonchi wheezing or rales. CARDIOVASCULAR: Regular rate and rhythm without murmurs rubs or gallops. ABDOMINAL: Soft, nontender, nondistended, no rebound or guarding MUSCULOSKELETAl: Moves all extremities. No clubbing, cyanosis or edema. NEURO: Awake and alert. Following commands, speech normal, no focal deficits SKIN:: Warm, dry. No rashes lesions or abrasions PSYCHIATRIC: Normal affect/mood, Course Course Emergency Course: Reviewed old records patient just had Lexiscan stress test on September 09, [address] Montoya cardiology had seen patient in the hospital with his previous admission for chest pain 3 days ago and had administered stress test at this time he feels that the patient may be discharged home with 2 - troponins in ED with follow-up as an outpatient Patient is remained chest pain-free throughout stay in ED Discussed with patient results of workup and diagnosis. Discussed need for follow-up with primary care, proper use of medication, and reasons to return to the emergency department. Patient understands and agrees to current treatment plan Vital Signs Vital signs: Vital Signs Temperature 98.6 F 09/11/21 21:26 Pulse Rate 77 09/11/21 21:26 Respiratory Rate 14 09/11/21 21:26 Blood Pressure 115/86 09/11/21 21:26 Pulse Oximetry 98 09/11/21 21:26 Temperature 98.6 F 09/11/21 21:26 Pulse Rate 68 09/12/21 00:11 Respiratory Rate 12 09/12/21 00:11 Blood Pressure 102/64 09/12/21 00:11 Pulse Oximetry 97 09/12/21 00:11 MDM - Chest Pain MDM Narrative Medical decision making narrative: Patient's EKGs and labs are without significant high risk changes. Cardiac risk factors reviewed. Patient is felt likely lo
[2021-09-11 21:40] VITALS: PULSE 64; O2SAT 96
[2021-09-11 21:43] LABS: Basophils Absolute Auto 0.1 K/mm3 (0.0-0.1); Basophils Percent Auto 1.1 % (0.2-1.2); Eosinophils Absolute Auto 0.6 K/mm3 (0-0.3); Eosinophils Percent Auto 7.3 % (0-4.4); Hematocrit 43.9 % (42.0-52.0); Hemoglobin 14.8 g/dL (14.0-18.0); Immature Granulocyte Absolute 0.07 K/mm3 (0.00-0.031); Immature Granulocyte Percent A 0.9 % (0-0.5); Lymphocytes Absolute Auto 1.57 K/mm3 (0.9-3.2); Mean Corpuscular HGB Conc 33.7 g/dl (32-36); Mean Corpuscular Hemoglobin 31.1 pg (26-34); Mean Corpuscular Volume 92.2 fl (80-100); Monocytes Absolute Auto 0.6 K/mm3 (0.1-0.6); Monocytes Percent Auto 8.4 % (2.6-8.5); Neutrophils Absolute Auto 4.6 K/mm3 (1.3-6.7); Neutrophils Percent Auto 61.3 % (45.5-73.1); Platelet Count Result 285 k/mm3 (150-375); Red Blood Count 4.76 M/mm3 (4.6-6.20); Red Cell Distribution Width 12.4 % (11.5-14.5); White Blood Count 7.5 K/mm3 (4.5-10.0)
[2021-09-11 21:55] LABS: D Dimer 0.35 ug/mL (<0.48)
[2021-09-11 22:13] LABS: Alanine Aminotransferase 16 U/L (4-50); Albumin Level 4.2 g/dL (3.5-5.1); Alkaline Phosphatase 86 U/L (38-126); Anion Gap 8 mmol/L (8-16); Aspartate Amino Transferase 24 U/L (17-59); Bilirubin,Total 0.2 mg/dL (0.2-1.3); Blood Urea Nitrogen 13 mg/dL (9-20); Calcium 9.1 mg/dL (8.4-10.2); Carbon Dioxide 24 mmol/L (22-30); Chloride 108 mmol/L (98-107); Estimated CRCL calculation 82 ml/min; Estimated Glomerular Filt Rate > 60; Glucose 118 mg/dL (65-110); Lipase 112 U/L (23-300); Potassium 4.2 mmol/L (3.4-5.0); Sodium 140 mmol/L (137-145)
[2021-09-11 22:21] LABS: Troponin I < 0.012 ng/mL (0.000-0.034)
[2021-09-11 22:25] VITALS: BP 96/62; PULSE 64; RESP 14; O2SAT 96
[2021-09-11 23:03] LABS: Partial Thromboplastin Time 25.9 SECONDS (22.3-36.8); Prothrombin Time 12.8 Seconds (11.1-14.7)
[2021-09-11 23:20] VITALS: BP 105/74; PULSE 67; RESP 16; O2SAT 97
[2021-09-12 00:11] VITALS: BP 102/64; PULSE 68; RESP 12; O2SAT 97
[2021-09-12 00:43] LABS: Troponin I < 0.012 ng/mL (0.000-0.034)
[2021-09-12 01:28] VITALS: BP 109/86; PULSE 64; RESP 18; O2SAT 97
== END 2021-09-12 01:30 | disposition home or self-care (01) ==
PROVIDERS: Emergency Provider Emergency Medicine; PCP Internal Medicine
DX: R07.9 Chest pain, unspecified (principal); E78.5 Hyperlipidemia, unspecified; R91.8 Other nonspecific abnormal finding of lung field
CPT/HCPCS: 36415; 71045; 80053; 83690; 84484; 85025; 85380; 85610; 85730; 93005; 99284

== ENCOUNTER 2022-02-20 09:48 | Emergency (ER) | payer OTHER, SELFPAY ==
[2022-02-20] VITALS (22 sets, daily range): BP systolic 114–165; BP diastolic 83–143; PULSE 79–102; RESP 0–22; TEMP 36.7; O2SAT 94–100
--- NOTE | ~2022-02-20 | CT_ITS ---
EXAMINATION: CT brain wo con INDICATION: Seizures, transient alteration of awareness COMPARISON: 09/07/2021 TECHNIQUE: Standard unenhanced head CT. The dose-length product (DLP) was 605.33 mGy-cm. The mA was a djusted according to patient size. Iterative reconstruction technique was employed. FINDINGS: There is no intracranial hemorrhage, acute infarction, or abnormal mass lesion. The ventric les are normal. There is no abnormal mass effect or midline shift. The moore-white matter differentiat ion is normal. The basal cisterns are patent. The orbits are normal. There is mild mucosal thickening in the right frontal sinus. IMPRESSION: 1. No acute intracranial abnormality. Reviewed, dictated and finalized at location A.
--- NOTE | ~2022-02-20 | XR_ITS ---
EXAMINATION: XR chest 2V DATE: 02/20/2022 10:43 INDICATION: New onset seizure TECHNIQUE: AP and lateral views of the chest were obtained. COMPARISON: Chest radiograph dated 09/11/2021 FINDINGS: The lungs are clear with no focal airspace opacities, pulmonary edema, pleural effusion or pneumothor ax. The cardiomediastinal silhouette is normal. Mild thoracic spondylosis. IMPRESSION: 1. No acute cardiopulmonary disease. Reviewed, dictated and finalized at location A.
--- NOTE | 2022-02-20 10:04 | ED.SEIZURE ---
HPI - Seizure General Chief Complaint: Seizure Stated Complaint: unwitnessed seizure Time Seen by Provider: 02/20/22 09:57 History of Present Illness HPI Narrative: 56-year-old male history of seizures presents the emergency room following a partial seizure that was witnessed by multiple coworkers. Patient reports having 2-3 seizures a month, despite being on 2000 mg of Keppra daily. Patient states he is compliant with his medications. Denies any known injury or trauma. Denies a fever. Denies any other symptoms. States he is no longer under the care of a neurologist due to insurance plan changes. Denies alcohol or drug use. Describes his seizures as partial seizures, reportedly does not complete lose consciousness. Seizure History: Yes Related Data Allergies Allergy/AdvReac Type Severity Reaction Status Date / Time atenolol AdvReac Hypotension Verified 02/20/22 09:59 Review of Systems Review of Systems: CONSTITUTIONAL: Denies fever, chills, or sweats. EYES: Denies visual changes, redness, or discharge. ENT: Denies rhinorrhea, congestion, sore throat, or otalgia. CARDIOVASCULAR: Denies chest pain, palpitations, or edema. RESPIRATORY: Denies cough or dyspnea. GASTROINTESTINAL: Denies abdominal pain, nausea, vomiting, or diarrhea. GENITOURINARY: Denies dysuria or hematuria. SKIN: Denies rash or itching. MUSCULOSKELETAL: Denies back pain, joint pain, or myalgia. NEUROLOGIC: Reports seizures PSYCHIATRIC: Denies anxiety or depression. [facility] Past Medical History Medical History Dizziness Dyslipidemia Seizures Family History Family History Father Heart disease Sibling Seizures Social History Social History Smoking status: Never smoker Second hand tobacco smoke exposure: No Alcohol intake: never Substance use: never Substance use type: prescription drug Gender identity (if verbalized by the patient): Male Spiritual care concerns: No Exam Narrative: GENERAL: Well-appearing, well-nourished, no physical limitations, and in no acute distress. HEAD: Normocephalic, atraumatic. EYES: Conjunctivae normal, PERRLA and EOMI. CHEST: Clear to auscultation. No respiratory distress. No wheezes rales or rhonchi. No tenderness. HEART: Regular rate and rhythm. No murmur heard. Normal peripheral pulses. BACK: No CVA tenderness; No cervical/thoracic/lumbar tenderness, step-offs, bony abnormality; FROM EXTREMITIES: Normal range of motion. No edema. No clubbing or cyanosis SKIN: Warm, dry, no rash. No noted wounds NEURO: No focal deficits. Alert and oriented x3. MAEW. CN's II-XI intact bilaterally, normal gait PSYCH: Cooperative. Normal mood and affect. Course Course Emergency Course: 1230: Dr. Holder. He recommends patient increase his Keppra dose from 1000 mg twice a day to 1500 mg twice a day. Will have patient follow-up with his primary care physician next week. Vital Signs Vital signs: Vital Signs Temperature 36.7 C 02/20/22 09:48 Pulse Rate 97 02/20/22 09:48 Respiratory Rate 12 02/20/22 09:48 Blood Pressure 122/90 02/20/22 09:48 Pulse Oximetry 100 02/20/22 09:48 Oxygen Delivery Room Air 02/20/22 09:48 Temperature 36.7 C 02/20/22 09:48 Pulse Rate 87 02/20/22 12:01 Respiratory Rate 20 02/20/22 12:01 Blood Pressure 124/83 02/20/22 12:01 Pulse Oximetry 97 02/20/22 12:01 Oxygen Delivery Room Air 02/20/22 09:58 MDM - Seizure Lab Data Result diagrams: 02/20/22 10:15 02/20/22 10:15 Labs: Lab Results 02/20/22 02/20/22 02/20/22 Range/Units 10:15 10:15 11:45 WBC 14.1 H (4.5-10.0) K/mm3 RBC 5.06 (4.6-6.20) M/mm3 Hgb 15.3 (14.0-18.0) g/dL Hct 45.3 (42.0-52.0) % MCV 89.5 (80-100) fl MCH 30.2 (26-34) pg MCHC 33.8 (32-36) g/dl
[2022-02-20 10:22] LABS: Basophils Absolute Auto 0.1 K/mm3 (0.0-0.1); Basophils Percent Auto 0.5 % (0.2-1.2); Eosinophils Absolute Auto 0.1 K/mm3 (0-0.3); Eosinophils Percent Auto 0.4 % (0-4.4); Hematocrit 45.3 % (42.0-52.0); Hemoglobin 15.3 g/dL (14.0-18.0); Immature Granulocyte Absolute 0.05 K/mm3 (0.00-0.031); Immature Granulocyte Percent A 0.4 % (0-0.5); Lymphocytes Percent Auto 8.5 % (18.3-44.2); Mean Corpuscular HGB Conc 33.8 g/dl (32-36); Mean Corpuscular Hemoglobin 30.2 pg (26-34); Mean Corpuscular Volume 89.5 fl (80-100); Mean Platelet Volume 10.2 fl (7.4-10.4); Monocytes Absolute Auto 1.1 K/mm3 (0.1-0.6); Monocytes Percent Auto 7.8 % (2.6-8.5); Neutrophils Absolute Auto 11.6 K/mm3 (1.3-6.7); Neutrophils Percent Auto 82.4 % (45.5-73.1); Platelet Count Result 238 k/mm3 (150-375); Red Blood Count 5.06 M/mm3 (4.6-6.20); Red Cell Distribution Width 12.4 % (11.5-14.5); White Blood Count 14.1 K/mm3 (4.5-10.0)
--- NOTE | 2022-02-20 10:24 | ECG_ITS ---
Measurements Intervals [place] Rate: 83 P: 45 MN: 190 QRS: 36 QRSD: 98 T: 28 QT: 357 QTc: 420 Interpretive Statements SINUS RHYTHM NORMAL ELECTROCARDIOGRAM COMPARED TO ECG 09/11/2021 21:32:01 NO SIGNIFICANT CHANGES Electronically Signed On 02-20-2022 12:06:01 CDT by Arsalan Gray M.D.
[2022-02-20 10:49] LABS: Alanine Aminotransferase 14 U/L (6-50); Albumin Level 4.8 g/dL (3.5-5.1); Alkaline Phosphatase 80 U/L (38-126); Anion Gap 13 mmol/L (8-16); Aspartate Amino Transferase 21 U/L (17-59); Bilirubin,Total 0.7 mg/dL (0.2-1.3); Blood Urea Nitrogen 20 mg/dL (9-20); Calcium 9.3 mg/dL (8.4-10.2); Carbon Dioxide 27 mmol/L (22-30); Chloride 102 mmol/L (98-107); Estimated CRCL calculation 56 ml/min; Estimated Glomerular Filt Rate > 60; Glucose 107 mg/dL (65-110); Potassium 3.9 mmol/L (3.4-5.0); Sodium 142 mmol/L (137-145)
[2022-02-20 10:53] LABS: Troponin I < 0.012 ng/mL (0.000-0.034)
[2022-02-20 12:07] LABS: Appearance Urine Clear (Clear); Bilirubin Urine 1+ (Negative); Color Urine Yellow (Yellow); Glucose Urine UA Negative (Negative); Ketones Urine 1+ mg/dL (Negative); Leukocyte Esterase Ur Negative LEU/UL (Negative); Nitrate Urine Negative (Negative); Protein Urine 1+ mg/dL (Negative); Specific Grav Ur >= 1.030 (1.001-1.035); pH Urine 5.5 (5.0-9.0)
[2022-02-20 12:17] LABS: Mucus Urine Heavy /lpf; Squamous Epithelial Cell Urine Rare /hpf (Few); WBC Urine 0-3 /hpf
[2022-02-20 12:22] LABS: Add Urine Microscopic? YES; Blood Urine Trace-Intact (Negative)
== END 2022-02-20 13:08 | disposition home or self-care (01) ==
PROVIDERS: Emergency Provider Nurse Practitioner Family; PCP Internal Medicine
DX: G40.909 Epilepsy, unspecified, not intractable, without status epilepticus (principal)
CPT/HCPCS: 36415; 70450; 71046; 80053; 81001; 84484; 85025; 93005; 99284

== ENCOUNTER 2023-09-11 06:53 | Observation (INO) | payer BC, SELFPAY ==
[2023-09-11] VITALS (11 sets, daily range): BP systolic 110–149; BP diastolic 67–86; PULSE 64–80; RESP 13–20; TEMP 36.4–36.7; O2SAT 96–99; BMI 24.2
--- NOTE | 2023-09-11 | ECHO_ITS ---
Patient Info Name: Venu Garcia Age: 58 years : 1965 Gender: Male Ht: 66 in Wt: 151 lbs BSA: 1.79 m2 HR: 64 bpm BP: 134 / 86 mmHg Technical Quality: Fair Exam Date: 09/11/2023 1:47 PM Exam Location: Echo Lab Exam Room: [facility] Patient Status: Inpatient Admit Date: 09/11/2023 Staff Ordering Physician: Deondre Montoya DO Bleacher Operator: Ananya Matthew RDCS Attending Provider: Chuck Perry MD Referring Physician: Jan MATOS; Exam Type: CA echo doppler color flow Study Info Indications - CHEST PAIN Complete two-dimensional, color flow and Doppler transthoracic echocardiogram is performed. Summary 1. Complete two-dimensional, color flow and Doppler transthoracic echocardiogram is performed. 2. Left ventricular chamber dimension is normal. 3. Left ventricular systolic function is normal, estimated at 60-65%. 4. The left ventricular diastolic function is grade I diastolic dysfunction. 5. E/e' 6 is not elevated. 6. There is trace tricuspid valve regurgitation. 7. No pulmonary hypertension, estimated pulmonary arterial systolic pressure is 12 mmHg. Left Ventricle E/e' 6 is not elevated. Left ventricular chamber dimension is normal. Left ventricular systolic function is normal, estimated at 60-65%. The left ventricular diastolic function is grade I diastolic dysfunction. Right Ventricle Right ventricular chamber dimension is normal. Right ventricular systolic function is normal. Left Atria Left atrial chamber dimension is normal. Right Atria Right atrial chamber dimension is normal. Aortic Valve The aortic valve is trileaflet. There is no aortic valve stenosis. There is no aortic valve regurgitation. Pulmonic Valve There is no pulmonic regurgitation. Mitral Valve There is no mitral valve stenosis. There is no mitral valve regurgitation. Tricuspid Valve There is trace tricuspid valve regurgitation. No pulmonary hypertension, estimated pulmonary arterial systolic pressure is 12 mmHg. Pericardium/Pleural There is no pericardial effusion. Inferior Vena Cava Normal inferior vena cava with >50% collapse upon inspiration consistent with normal right atrial pressure, 5 mmHg. Aorta The aortic root size at the sinus of Valsalva is normal. Left Ventricular Outflow Tract Name Value Normal LVOT 2D LVOT Diameter 2.0 cm LVOT Doppler LVOT Peak Gradient 3 mmHg LVOT Mean Gradient 2 mmHg LVOT VTI 20 cm LVOT VTI/AV VTI Ratio 1.0 LVOT Stroke Volume 67 ml LVOT CO 12.9 l/min LVOT CI 7.2 l/min/m2 Pulmonic Valve Name Value Normal RVOT Doppler RVOT Peak Gradient 0 mmHg PV Doppler PV Peak Gradient 3 mmHg Mi
--- NOTE | ~2023-09-11 | XR_ITS ---
XR chest 2V DATE: 09/11/2023 08:33 INDICATION: Recent mid to left chest pain, arm pain. TECHNIQUE: PA and lateral views COMPARISON: 02/20/2022 2 view chest FINDINGS: Normal heart size. No hilar or mediastinal enlargement. No pulmonary infiltrate or consolid ation, pleural effusion or pulmonary vascular congestion or pneumothorax is detected. Included skeletal structures are unremarkable. IMPRESSION: No active cardiopulmonary disease Reviewed, dictated and finalized at location [facility]
--- NOTE | 2023-09-11 06:58 | ECG_ITS ---
Measurements Intervals [place] Rate: 77 P: 42 IN: 224 QRS: 44 QRSD: 90 T: 34 QT: 353 QTc: 402 Interpretive Statements SINUS RHYTHM WITH FIRST DEGREE AV BLOCK MINIMAL Q WAVES- INFERIOR LEADS BASELINE ARTIFACT- V2 BORDERLINE ECG COMPARED TO ECG 02/20/2022 11:24:03 FIRST DEGREE AV BLOCK NOW PRESENT Electronically Signed On 09-11-2023 7:37:25 MAINTENANCE AND OPERATIONS SUPERVISOR by Deondre Montoya D.O.
[2023-09-11 07:21] LABS: Basophils Absolute Auto 0.1 K/mm3 (0.0-0.1); Basophils Percent Auto 0.9 % (0.2-1.2); Eosinophils Absolute Auto 0.4 K/mm3 (0-0.3); Eosinophils Percent Auto 3.6 % (0-4.4); Hematocrit 45.4 % (42.0-52.0); Hemoglobin 15.7 g/dL (14.0-18.0); Immature Granulocyte Absolute 0.04 K/mm3 (0.00-0.031); Immature Granulocyte Percent A 0.4 % (0-0.5); Lymphocytes Absolute Auto 2.39 K/mm3 (0.9-3.2); Lymphocytes Percent Auto 21.1 % (18.3-44.2); Mean Corpuscular HGB Conc 34.6 g/dl (32-36); Mean Corpuscular Hemoglobin 31.3 pg (26-34); Mean Corpuscular Volume 90.6 fl (80-100); Mean Platelet Volume 10.4 fl (7.4-10.4); Monocytes Absolute Auto 0.8 K/mm3 (0.1-0.6); Monocytes Percent Auto 6.9 % (2.6-8.5); Neutrophils Absolute Auto 7.6 K/mm3 (1.3-6.7); Neutrophils Percent Auto 67.1 % (45.5-73.1); Platelet Count Result 210 k/mm3 (150-375); Red Blood Count 5.01 M/mm3 (4.6-6.20); Red Cell Distribution Width 12.5 % (11.5-14.5); White Blood Count 11.3 K/mm3 (4.5-10.0)
--- NOTE | 2023-09-11 07:25 | ED.CHESTPAIN ---
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 Lasted less than 1 hour, currently patient is asymptomatic, patient does not take medicine at home, does not smoke or drink, strong family history of coronary artery disease, his father, his younger brother and his mother. Related Data Allergies Allergy/AdvReac Type Severity Reaction Status Date / Time atenolol AdvReac Hypotension Verified 02/20/22 09:59 Review of Systems Review of Systems: All systems reviewed & are unremarkable except as noted in HPI and below PMFSH Past Medical History Medical History Dizziness Dyslipidemia Seizures Family History Family History Father Heart disease Sibling Seizures Social History Social History Smoking status: Current every day smoker Second hand tobacco smoke exposure: No Alcohol intake: never Substance use: never Substance use type: prescription drug Do You Feel Safe in your Home?: Yes Lack of Transportation: No Lack of Food: Never True Current Housing: I Have Housing Concerned About Future Housing: No Difficulty Paying Gas/Electric Bills: No Difficulty Paying for Meds: No Currently Unemployed: No Education: High School Diploma/GED Difficulty w/ Childcare or Family Care: No Gender identity (if verbalized by the patient): Male Spiritual care concerns: No Exam Narrative: General appearance: Well-developed, well-nourished Skin: Normal color Head: Normocephalic, nontraumatic Eyes: Clear conjunctiva ENT: Oropharynx normal, ears normal, nose normal Neck: Supple, nontender Chest and respiratory: Airway patent, no respiratory distress, no accessory muscle use Heart: Regular rate/rhythm Abdomen: Soft, nontender, no organomegaly, quiet bowel sounds Vascular: Normal peripheral pulses, normal capillary refill. Musculoskeletal: Normal range of motion, nontender back Neurologic: Alert and oriented ?3, STAINED GLASS GLAZIER is normal as tested, no gross motor deficit Course Vital Signs Vital signs: Vital Signs Temperature 36.6 C 09/11/23 06:54 Pulse Rate 80 09/11/23 06:54 Respiratory Rate 16 09/11/23 06:54 Blood Pressure 149/81 H 09/11/23 06:54 Pulse Oximetry 98 09/11/23 06:54 Oxygen Delivery Room Air 09/11/23 06:54 Temperature 36.4 C L 09/11/23 16:58 Pulse Rate 71 09/11/23 18:00 Respiratory Rate 20 09/11/23 16:58 Blood Pressure 111/71 09/11/23 16:58 Pulse Oximetry 97 09/11/23 16:58 Oxygen Delivery Room Air 09/11/23 12:00 MDM - Chest Pain MDM Narrative Medical decision making narrative: Differential diagnosis include coronary artery disease, musculoskeletal, pleurisy, pleural effusion. Medical Records Data Attestation: I reviewed the patient's medical records. Lab Data Attestation: I reviewed the patient's lab results. 09/11/23 07:11 09/11/23 12:54 Labs: Lab Results 09/11/23 09/11/23 Range/Units 07:11 08:14 WBC 11.3 H (4.5-10.0) K/mm3 RBC 5.01 (4.6-6.20) M/mm3 Hgb 15.7 (14.0-18.0) g/dL Hct 45.4 (42.0-52.0) % MCV 90.6 (80-100) fl MCH 31.3 (26-34) pg MCHC 34.6 (32-36) g/d
[2023-09-11 07:31] LABS: Prothrombin Time 13.6 Seconds (11.1-14.7)
[2023-09-11 08:39] LABS: Alanine Aminotransferase 14 U/L (6-50); Albumin Level 4.1 g/dL (3.5-5.1); Alkaline Phosphatase 99 U/L (38-126); Anion Gap 4 mmol/L (8-16); Aspartate Amino Transferase 22 U/L (17-59); Bilirubin,Total 0.6 mg/dL (0.2-1.3); Blood Urea Nitrogen 21 mg/dL (9-20); Carbon Dioxide 28 mmol/L (22-30); Chloride 107 mmol/L (98-107); Estimated CRCL calculation 111 ml/min; Estimated Glomerular Filt Rate > 60; Glucose 95 mg/dL (65-110); Lipase 117 U/L (23-300); Sodium 139 mmol/L (137-145)
[2023-09-11 08:49] LABS: Troponin I 0.014 ng/mL (0.000-0.034)
[2023-09-11 09:06] LABS: D Dimer < 0.22 ug/mL (<0.48)
[2023-09-11] MEDS: METOPROLOL TARTRATE 50 MG TAB 25 MG PO (09:24)
--- NOTE | 2023-09-11 10:07 | ECG_ITS ---
Measurements Intervals [place] Rate: 64 P: 42 [place]: 223 QRS: 34 QRSD: 87 T: 30 QT: 379 QTc: 393 Interpretive Statements SINUS RHYTHM WITH FIRST DEGREE AV BLOCK BASELINE ARTIFACT- I, II, III, AVR, AVL, AVF, V3-V4 BORDERLINE ECG COMPARED TO ECG 09/11/2023 07:05:54 NO SIGNIFICANT CHANGES Electronically Signed On 09-11-2023 13:06:42 REGASIFICATION PLANT OPERATOR by Deondre Montoya D.O.
--- NOTE | 2023-09-11 10:12 | PM.CNCAR ---
Assessment and Plan Assessment and plan (1) Chest pain in adult: Code(s): R07.9 - Chest pain, unspecified Status: Acute Assessment and Plan: Low risk with negative EKG, troponin, and cp resolved with rest. Trend troponin. Obtain echo. If above remain unremarkable, he may follow up with me as outpatient for further testing as this is weekend and stress tests are not done. (2) Hyperlipidemia: Code(s): E78.5 - Hyperlipidemia, unspecified Status: Acute Assessment and Plan: Used to be on atorvastatin. History of Present Illness History of Present Illness Consult date/time: 09/11/23 10:12 Reason For Visit: chest pain Narrative: 58 yr old man I know from 2 years ago when he got admitted for chest pain presents to ER with chest pain. He has a history of seizures, GERD and dyslipidemia. Reports he was working at [employer] when he noted dull chest pain at 3 am and when he took lunch at 6 am the pain persisted and became sharp so he decided to come to ER. The pain has subsided while resting in ER. He can walk 1/2 mile without any problems. He drinks plenty of water about a case of water bottles a week. Denies sob, orthopnea, PND, edema, dizziness, palpitations. Review of Systems Review of Systems: All systems reviewed & are unremarkable except as noted in HPI and below Constitutional: Constitutional: Reports as per HPI, Denies chills and Denies fever(s) Cardiovascular: Cardiovascular: Reports as per HPI, Reports chest pain and Denies irregular heart rhythm Respiratory: Respiratory: Reports as per HPI and Denies dyspnea Gastrointestinal: Gastrointestinal: Reports as per HPI, Denies abdominal pain and Reports heartburn Genitourinary: Genitourinary: Reports as per HPI and Denies dysuria Musculoskeletal: Musculoskeletal: Reports as per HPI Neurologic: Reports as per HPI, Denies dizziness and Denies syncope [facility] Past Medical History Medical History Dizziness Dyslipidemia Seizures Family History Family History Father Heart disease Sibling Seizures Social History Social History Smoking status: Never smoker Second hand tobacco smoke exposure: No Alcohol intake: never Substance use: never Substance use type: prescription drug Gender identity (if verbalized by the patient): Male Spiritual care concerns: No Meds Home Medications and Allergies Home Medications Medication Instructions Recorded Confirmed Type aspirin 81 mg chewable tablet 81 mg PO DAILY #30 tabs 09/09/21 Rx atorvastatin 40 mg tablet 40 mg PO DAILY #30 tabs 09/09/21 Rx levetiracetam 1,000 mg tablet 1,000 mg PO BID #60 tabs 09/09/21 Rx (Keppra) omeprazole 20 mg capsule,delayed 20 mg PO BID PRN Acid Reflux #60 09/09/21 Rx release caps sertraline 50 mg tablet 50 mg PO DAILY #30 tabs 09/09/21 Rx levetiracetam 500 mg tablet 500 mg PO BID 30 days #60 tabs 02/20/22 Rx (Keppra) Allergies Allergy/AdvReac Type Severity Reaction Status Date / Time atenolol AdvReac Hypotension Verified 02/20/22 09:59 Vital Signs Vital Signs - 24 hr 09/11/23 06:54 09/11/23 08:18 09/11/23 08:18 Temperature 98 F Pulse Rate 80 67 Respiratory Rate 16 Blood Pressure 149/81 H Pulse Oximetry 98 98 Oxygen Delivery Room Air Room Air 09/11/23 08:18 09/11/23 09:24 09/11/23 09:26 Temperature 97.8 F Pulse Rate 69 66 78 Respiratory Rate 16 20 Blood Pressure 123/84 110/79 Pulse Oximetry 99 98 Oxygen Delivery Exam Const: General: cooperative, healthy appearing and comfortable Resp: Auscultation: clear to auscultation bilaterally, no crackles, no rales, no rhonchi and no wheezes Cardio: Rate: regular rate Rhythm: regular rhythm Heart sounds: no murmurs Peripheral pulses: dorsalis pedis pres
[2023-09-11 10:39] LABS: Troponin I < 0.012 ng/mL (0.000-0.034)
--- NOTE | 2023-09-11 11:05 | ADMGEN ---
This patient, Venu Garcia, was admitted to IMU Room 211-01. Patient/family oriented to hospital policies and general routines including ID bracelet, bed and alarms, visiting hours, pain management, procedures, bathroom and other care routines, personal items, smoking policy, room service/diet, and visiting hours. Information on how to activate the Rapid Response Team has been discussed. Patient/Family are encouraged to report perceived risks to care and to ask questions if they do not understand what they are told or what they should do.
--- NOTE | 2023-09-11 12:46 | PM.IMHP ---
H&P: HPI History of Present Illness Date/Time: 09/11/23 12:46 Chief Complaint: Chest pain PMFSH Past Medical History Medical History Dizziness Dyslipidemia Seizures Family History Family History Father Heart disease Sibling Seizures Social History Social History Smoking status: Never smoker Second hand tobacco smoke exposure: No Alcohol intake: never Substance use: never Substance use type: prescription drug Gender identity (if verbalized by the patient): Male Spiritual care concerns: No Meds Home Medications and Allergies Home Medications Medication Instructions Recorded Confirmed Type aspirin 81 mg chewable tablet 81 mg PO DAILY #30 tabs 09/09/21 Rx atorvastatin 40 mg tablet 40 mg PO DAILY #30 tabs 09/09/21 Rx levetiracetam 1,000 mg tablet 1,000 mg PO BID #60 tabs 09/09/21 Rx (Keppra) omeprazole 20 mg capsule,delayed 20 mg PO BID PRN Acid Reflux #60 09/09/21 Rx release caps sertraline 50 mg tablet 50 mg PO DAILY #30 tabs 09/09/21 Rx levetiracetam 500 mg tablet 500 mg PO BID 30 days #60 tabs 02/20/22 Rx (Keppra) Allergies Allergy/AdvReac Type Severity Reaction Status Date / Time atenolol AdvReac Hypotension Verified 02/20/22 09:59 Vital Signs Vital Signs - 24 hr 09/11/23 06:54 09/11/23 08:18 09/11/23 08:18 Temperature 98 F Pulse Rate 80 67 Respiratory Rate 16 Blood Pressure 149/81 H Pulse Oximetry 98 98 Oxygen Delivery Room Air Room Air 09/11/23 08:18 09/11/23 09:24 09/11/23 09:26 Temperature 97.8 F Pulse Rate 69 66 78 Respiratory Rate 16 20 Blood Pressure 123/84 110/79 Pulse Oximetry 99 98 Oxygen Delivery 09/11/23 10:56 09/11/23 11:05 Temperature 98.0 F 97.8 F Pulse Rate 64 67 Respiratory Rate 13 14 Blood Pressure 113/67 134/86 Pulse Oximetry 96 99 Oxygen Delivery H&P: Results Labs Labs: Short CBC 03/09/24 Range/Units 07:11 WBC 11.3 H (4.5-10.0) K/mm3 Hgb 15.7 (14.0-18.0) g/dL Hct 45.4 (42.0-52.0) % Plt Count 210 (150-375) k/mm3 BMP 09/11/23 08:14 Sodium 139 Potassium 4.0 Chloride 107 Carbon Dioxide 28 BUN 21 H Creatinine 0.90 Glucose 95 Calcium 9.0 Cardiac Enzymes 09/11/23 09/11/23 Range/Units 08:14 10:13 Troponin I 0.014 < 0.012 (0.000-0.034) ng/mL Liver Function 09/11/23 Range/Units 08:14 Total Bilirubin 0.6 (0.2-1.3) mg/dL AST 22 (17-59) U/L ALT 14 (6-50) U/L Alkaline Phosphatase 99 (38-126) U/L Albumin 4.1 (3.5-5.1) g/dL
[2023-09-11 13:23] LABS: Alanine Aminotransferase 14 U/L (6-50); Albumin Level 3.8 g/dL (3.5-5.1); Alkaline Phosphatase 81 U/L (38-126); Anion Gap 2 mmol/L (8-16); Aspartate Amino Transferase 19 U/L (17-59); Bilirubin,Total 0.5 mg/dL (0.2-1.3); Blood Urea Nitrogen 19 mg/dL (9-20); Calcium 8.7 mg/dL (8.4-10.2); Carbon Dioxide 31 mmol/L (22-30); Chloride 106 mmol/L (98-107); Estimated CRCL calculation 65 ml/min; Estimated Glomerular Filt Rate > 60; Glucose 95 mg/dL (65-110); Potassium 4.1 mmol/L (3.4-5.0); Sodium 139 mmol/L (137-145)
[2023-09-11 13:28] LABS: Troponin I < 0.012 ng/mL (0.000-0.034)
[2023-09-11 13:43] LABS: Cholesterol 175 mg/dL (0-200)
[2023-09-11 18:33] LABS: Cholesterol 184 mg/dL (0-200); HDL Direct 36 mg/dL; Triglycerides 212 mg/dL (<150)
[2023-09-11 18:44] LABS: LDL Cholesterol Direct 115 mg/dL
--- NOTE | 2023-09-13 06:54 | PM.SD2 ---
Same Day Admit/Disch: HPI History of Present Illness Chief complaint: Chest Pain Narrative: Venu Garcia is a 58 year old male with a past medical history of seizure, hyperlipidemia, and GERD who presented to the ER with complaints of chest pain. 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 Over the next couple of hours the chest pain became worse. He described the pain as a stabbing that traveled to his left arm and left back. He states that he has had chest pressure like this before in 2019 that has resolved with rest. He denied dizziness, shortness of breath, or heart palpitations. By the time he arrived to [place] ER the chest pain had resolved. He was admitted for observation for a cardiology consult, completion of an echocardiogram, and monitoring of troponin. When I assessed him later in the day, he was resting in bed in no acute distress. He denies any chest pain or shortness of breath.. He is eager to eat something. He states he is a pretty active person. He usually walks 2 miles a day. He states he quit drinking alcohol and using tobacco products in the early . [facility] Past Medical History Medical History Dizziness Dyslipidemia Seizures Family History Family History Father Heart disease Sibling Seizures Social History Social History (Updated 09/13/23 @ 07:03 by Ynes Stringer APRN) Social History: Works at [employer] Smoking status: Former smoker Tobacco type: cigarettes Second hand tobacco smoke exposure: No Alcohol intake: never Substance use: never Substance use type: prescription drug Do You Feel Safe in your Home?: Yes Lack of Transportation: No Lack of Food: Never True Current Housing: I Have Housing Concerned About Future Housing: No Difficulty Paying Gas/Electric Bills: No Difficulty Paying for Meds: No Currently Unemployed: No Education: High School Diploma/GED Difficulty w/ Childcare or Family Care: No Living arrangements: other Additional living arrangements comments: Lives with his landlord. He is and has 5 children. Occupation/Education: occupation Gender identity (if verbalized by the patient): Male Spiritual care concerns: No Same Day Admit/Disch: Med Pre-admit Medications Home Medications Medication Instructions Recorded Confirmed Type aspirin 81 mg chewable tablet 81 mg PO DAILY #30 tabs 09/09/21 09/11/23 Rx Review of Systems Review of Systems All systems reviewed & are unremarkable except as noted in HPI and below Exam Narrative: General: well appearing, well developed, well nourished, appears stated age. HEENT: normocephalic, atraumatic. Mucous membranes moist. EOMI, PERRLA, bilateral sclera anicteric, no conjunctival injection. Neck supple without JVD, lymphadenopathy, or bruit. Respiratory: clear to auscultation bilaterally. No rales/rhonic/wheezes. Cardiovascular: Regular rate and rhythm, normal S1-S2 upon auscultation. No murmurs, rubs, or clicks. PMI is nondisplaced, capillary re-fill less than 3 second. Abdomen: Soft, flat, no pulsatile masses, non-distended and non-tender. No rebound, no guarding. No CVA tenderness, no hepatosplenomegaly. Bowel sounds present to all four quadrants. No high pitch or tinkling sounds, resonant to percussion. Extremities: No cyanosis, clubbing, or edema present. Pulses are palpable 2/2. Active ROM to all four extremities. Neuro: Alert and orientated x 4. PERRLA. Cranial nerves 2-12 intact without focal deficit. Skin: Warm, dry, and intact, without rash, erythema, or lesion. Lines: Incisions: Psych: pleasant, cooperative, normal speech, normal affect, no hallucinations, no dysarthria DS: Summary Time Spent with Patient Time attestation: Total time spent providing and/or coordinating di
== END 2023-09-11 19:20 | disposition home or self-care (01) ==
LOC: ANHED 07:42 → ANHIMU 10:35
PROVIDERS: Emergency Medicine; Nurse Practitioner Acute Care; Admitting Provider Internal Medicine; Emergency Provider Emergency Medicine; PCP Internal Medicine; Visit Provider Internal Medicine
DX: R07.9 Chest pain, unspecified (principal); I51.89 Other ill-defined heart diseases; I44.0 Atrioventricular block, first degree; E78.5 Hyperlipidemia, unspecified; R56.9 Unspecified convulsions; K21.9 Gastro-esophageal reflux disease without esophagitis; Z82.49 Family history of ischemic heart disease and other diseases of the circulatory system; Z87.891 Personal history of nicotine dependence; Z79.82 Long term (current) use of aspirin; Z79.899 Other long term (current) drug therapy
CPT/HCPCS: 36415; 71046; 80053; 80061; 82465; 83690; 84484; 85025; 85380; 85610; 85730; 93005; 93306; 99285; A9270; G0378